=== PATIENT | female | born 1945 | race Caucasian/White ===

== ENCOUNTER 2018-04-13 04:52 | Observation (INO) | payer MEDICARE ==
[2018-04-13] MEDS ORDERED: Pantoprazole IV* 40 MG IV ONE (05:10)
[2018-04-13] MEDS ORDERED: NS 0.9% 500 ML* 500 ML IV ONE (05:24)
[2018-04-13] MEDS ORDERED: Calcium CHLORIDE 10% SYRINGE* 0.34 GM in D5W 100 ML BAG* 100 ML IV ONE (05:24)
[2018-04-13] MEDS ORDERED: Calcium CHLORIDE 10% SYRINGE* 1 GM/10 ML ONE (05:25)
[2018-04-13] MEDS ORDERED: Glucagon* 1 MG VIAL IV ONE (05:36)
[2018-04-13] MEDS ORDERED: Calcium CHLORIDE 10% SYRINGE* 1 GM/10 ML IV ONE ×2 (05:39→06:31)
[2018-04-13] MEDS ORDERED: Dextrose 50% Syringe 50 ML* 25 GM/50 ML SYRINGE IV PUSH ONE (05:41)
[2018-04-13] MEDS ORDERED: Insulin REGULAR(*) 1 UNITS UNIT IV PUSH ONE (05:42)
[2018-04-13 05:43] LABS: ABS Basophils 0.1 10^3/ul (0-0.2); ABS Eosinophils 0.5 10^3/ul (0-0.6); ABS Lymphocytes 2.8 10^3/ul (1.0-4.8); ABS Monocytes 0.6 10^3/ul (0-0.8); ABS Neutrophils 4.4 10^3/ul (1.5-7.7); ABS Nucleated RBC 0 10^3/ul; Eosinophil % 5.3 % (0-6); Hematocrit 38 % (35-47); Hemoglobin 12.6 g/dl (12.0-16.0); Lymphocyte % 33.7 % (25-47); Mean Corpuscular HGB Conc 34 g/dl (31-36); Mean Corpuscular Hemoglobin 28 pg (27-31); Mean Corpuscular Volume 83 fL (80-97); Nucleated Red Blood Cells % 0; Platelet Count 250 10^3/ul (150-450); Red Blood Count 4.56 10^6/ul (4.00-5.40); Red Cell Distribution Width 16 % (10.5-15); White Blood Count 8.4 10^3/ul (3.5-10.8)
[2018-04-13 05:53] LABS: INR 1.08 (0.77-1.02)
[2018-04-13] MEDS ORDERED: Ondansetron INJ* 2 MG/ML VIAL ONE (05:53)
[2018-04-13] MEDS ORDERED: Ondansetron INJ* 2 MG/ML VIAL IV ONE (05:57)
[2018-04-13 06:06] LABS: EGFR Non-African American 63.5 (>60)
--- NOTE | 2018-04-13 06:49 | ED ---
Wallace Joel Tariq, scribed for Valerie Carbajal MD on 04/13/18 at 0524 . HPI Chest Pain - HPI Summary HPI Summary: A 72 y/o female [place] presents to ED c/o chest pressure. According to the patient , she woke up from her sleep with chest pressure around 0300. She felt her heart beating very fast/pounding. The pressure is diffuse across her chest. Currently, the pressure is not as bad, but still present. Additional symptoms include SOB, frequent belching and cold sweat, however denies any chest pain. She initially thought it was heart burn or an anxiety so she took a Xanax tab. The patient noted that her current symptoms are similar to her symptoms that were exhibited for her ND, however she feels she cannot tell the different between her acid reflux. EMS gave patient four aspirin and a blood thinner in the morning. PMHx of ND. No recent stress test. Last test was one year ago which revealed no change from year before. According to EMS, patients heart rate was 120-130. Some of her current medications include Xarelto, Ramipril. Metformin, and Doletilide (see chart for exhaustive list). - History of Current Complaint Chief Complaint: EDDysrhythmPalp Time Seen by Provider: 04/13/18 04:55 Hx Obtained From: Patient Onset/Duration: Started Hours Ago - 0300, Still Present - Not as much. Timing: Constant Current Severity: None Pain Intensity: 0 Pain Scale Used: 0-10 Numeric Chest Pain Location: Diffuse - Across chest Chest Pain Radiates: No Character: Pressure/Squeezing Aggravating Factor(s): Nothing Alleviating Factor(s): Nothing Associated Signs and Symptoms: Positive: Shortness of Breath, Diaphoresis - Cold , Other: - Belching. Negative: Chest Pain - Additional Pertinent History Primary Care Physician: [id number] - Allergy/Home Medications Allergies/Adverse Reactions: Allergies Allergy/AdvReac Type Severity Reaction Status Date / Time No Known Allergies Allergy Verified 04/13/18 04:57 Home Medications: Home Medications Cholecalciferol TAB* [Vitamin D TAB*] 1,000 unit PO DAILY 04/13/18 [History Confirmed 04/13/18] Cyanocobalamin (Vitamin B-12) [Vitamin B-12] 1,000 mcg PO DAILY 04/13/18 [ History Confirmed 04/13/18] Iron 65 mg PO DAILY 04/13/18 [History Confirmed 04/13/18] Magnesium Carbonate/Asafetida [Dewees Carminative Withou] 1 liq PO DAILY [History Confirmed 04/13/18] metFORMIN* [Glucophage 1000 MG TAB *] 1,000 mg PO 0800,1700 04/13/18 [History Confirmed 04/13/18] PMH/Surg Hx/FS Hx/Imm Hx Endocrine/Hematology History: Reports: Hx Diabetes, Hx Anemia Denies: Hx Unexplained Bleeding Cardiovascular History: Reports: Hx Angina, Hx Angioplasty, Hx Cardiomegaly, Hx Congestive Heart Failure, Hx Coronary Artery Disease, Hx Hypercholesterolemia, Hx Hypertension, Hx Myocardial Infarction - multiple stents, Other Cardiovascular Problems/Disorders - LBBB Denies: Hx Auto Implanted Cardiovert Defib, Hx Cardiac Arrest, Hx Congenital Heart Disease, Hx Deep Vein Thrombosis, Hx Embolism, Hx Hypotension, Hx Pacemaker/ICD, Hx Peripheral Vascular Disease, Hx Rheumatic Fever, Hx Syncope, Hx Valvular Heart Disease Respiratory History: Reports: Hx Asthma GI History: Reports: Hx Gastroesophageal Reflux Disease, Hx Hiatal Hernia, Other GI Disorders - hemorrhoids History: Reports: Other Problems/Disorders - UTI Musculoskeletal History: Reports: Hx Arthritis - knees Sensory History: Reports: Hx Contacts or Glasses Opthamlomology History: Reports: Hx Contacts or Glasses Psychiatric History: Reports: Hx Anxiety - one anxiety attack 2004 - Surgical History Surgery Procedure, Year, and Place: 4 heart surgeries, hysterectomy, cholecysytecomty, tumor removed from between toes. Hx Anesthesia Reactions: No Infectious Disease History: No Infectious Disease History: Denies: Traveled Outside the [place] in Last 30 Days - Family History Known Family History: Positive: Diabetes - GRANDMOTHER, Other - Bypass, AAA, ND , Dementia, CAD - Social History Alcohol Use: None Hx Substance Use: No Substance Use Type: Reports: None Hx Tobacco Use: No Smoking Status (MU): Never Smoked Tobacco Review of Systems Positive: Skin Diaphoresis - Cold, Other - POSITIVE: Belching. Negative: Fever Positive: Other - POSITIVE: Chest pressure. Negative: Chest Pain Positive: Shortness Of Breath All Other Systems Reviewed And Are Negative: Yes Physical Exam - Summary Physical Exam Summary: VITAL SIGNS: Reviewed. GENERAL: Patient is a well-developed and nourished FEMALE who is lying comfortable in the stretcher. Patient is not in any acute respiratory distress. Patient is almost pain free at this time, 0510. HEAD AND FACE: No signs of trauma. No ecchymosis, hematomas or skull depressions. No sinus tenderness. EYES: PERRLA, EOMI x 2, No injected conjunctiva, no nystagmus. EARS: Hearing grossly intact. Ear canals and tympanic membranes are within normal limits. MOUTH: Oropharynx within normal limits. NECK: Supple, trachea is midline, no adenopathy, no JVD, no carotid bruit, no c- spine tenderness, neck with full ROM. CHEST: Symmetric, no tenderness at palpation LUNGS: Clear to auscultation bilaterally. No wheezing or crackles. CVS: Bradycardia ,Irregular heart rate, S1 and S2 present, no murmurs or gallops appreciated. ABDOMEN: Soft, non-tender. No signs of distention. No rebound no guarding, and no masses palpated. Bowel sounds are normal. EXTREMITIES: FROM in all major joints, no edema, no cyanosis or clubbing. NEURO: Alert and oriented x 3. No acute neurological deficits. Speech is normal and follows commands. SKIN: Somewhat diaphoretic. Triage Information Reviewed: Yes Vital Signs On Initial Exam: Initial Vitals Temp Pulse Resp BP Pulse Ox 96.4 F 62 14 99/54 94 04/13/18 04:54 04/13/18 04:54 04/13/18 04:54 04/13/18 04:54 04/13/18 04:54 Vital Signs Reviewed: Yes Diagnostics - Vital Signs Vital Signs Temp Pulse Resp BP Pulse Ox 04/13/18 05:00 43 21 93 04/13/18 04:59 43 14 114/56 94 04/13/18 04:57 46 17 94 04/13/18 04:54 96.4 F 62 14 99/54 94 - Laboratory Lab Results: Lab Results 04/13/18 04/13/18 04/13/18 Range/Units 05:32 05:32 05:32 WBC 8.4 (3.5-10.8) 10^3/ul RBC 4.56 (4.00-5.40) 10^6/ul Hgb 12.6 (12.0-16.0) g/dl Hct 38 (35-47) % MCV 83 (80-97) fL MCH 28 (27-31) pg MCHC 34 (31-36) g/dl RDW 16 H (10.5-15) % Plt Count 250 (150-450) 10^3/ul MPV 11.0 H (7.4-10.4) um3 Neut % (Auto) 52.6 (38-83) % Lymph % (Auto) 33.7 (25-47) % Wetzel % (Auto) 7.7 H (0-7) % Eos % (Auto) 5.3 (0-6) % Baso % (Auto) 0.7 (0-2) % Absolute Neuts (auto) 4.4 (1.5-7.7) 10^3/ul Absolute Lymphs (auto) 2.8 (1.0-4.8) 10^3/ul Absolute Monos (auto) 0.6 (0-0.8) 10^3/ul Absolute Eos (auto) 0.5 (0-0.6) 10^3/ul Absolute Basos (auto) 0.1 (0-0.2) 10^3/ul Absolute Nucleated RBC 0 10^3/ul Nucleated RBC % 0 INR (Anticoag Therapy) 1.08 H (0.77-1.02) APTT 44.0 H (26.0-36.3) seconds Sodium 138 (135-145) mmol/L Potassium 4.0 (3.5-5.0) mmol/L Chloride 108 (101-111) mmol/L Carbon Dioxide 21 L (22-32) mmol/L Anion Gap 9 (2-11) mmol/L BUN 18 (6-24) mg/dL Creatinine 0.88 (0.51-0.95) mg/dL Est GFR ( Amer) 76.9 (>60) Est GFR (Non-Af Amer) 63.5 (>60) BUN/Creatinine Ratio 20.5 H (8-20) Glucose 242 H (70-100) mg/dL Lactic Acid (0.5-2.0) mmol/L Calcium 9.3 (8.6-10.3) mg/dL Magnesium 1.8 L (1.9-2.7) mg/dL Total Bilirubin 0.30 (0.2-1.0) mg/dL AST 27 (13-39) U/L ALT 21 (7-52) U/L Alkaline Phosphatase 66 (34-104) U/L Troponin I 0.03 (<0.04) ng/mL B-Natriuretic Peptide ( - 100) pg/mL Total Protein 7.4 (6.4-8.9) g/dL Albumin 4.2 (3.2-5.2) g/dL Globulin 3.2 (2-4) g/dL Albumin/Globulin Ratio 1.3 (1-3) TSH 4.23 (0.34-5.60) mcIU/mL Thyroxine (T4) 8.08 (6.09-12.23) mcg/mL 04/13/18 04/13/18 Range/Units 05:32 05:32 WBC (3.5-10.8) 10^3/ul RBC (4.00-5.40) 10^6/ul Hgb (12.0-16.0) g/dl Hct (35-47) % MCV (80-97) fL MCH (27-31) pg MCHC (31-36) g/dl RDW (10.5-15) % Plt Count (150-450) 10^3/ul MPV (7.4-10.4) um3 Neut % (Auto) (38-83) % Lymph % (Auto) (25-47) % Wetzel % (Auto) (0-7) % Eos % (Auto) (0-6) % Baso % (Auto) (0-2) % Absolute Neuts (auto) (1.5-7.7) 10^3/ul Absolute Lymphs (auto) (1.0-4.8) 10^3/ul Absolute Monos (auto) (0-0.8) 10^3/ul Absolute Eos (auto) (0-0.6) 10^3/ul Absolute Basos (auto) (0-0.2) 10^3/ul Absolute Nucleated RBC 10^3/ul Nucleated RBC % INR (Anticoag Therapy) (0.77-1.02) APTT (26.0-36.3) seconds Sodium (135-145) mmol/L Potassium (3.5-5.0) mmol/L Chloride (101-111) mmol/L Carbon Dioxide (22-32) mmol/L Anion Gap (2-11) mmol/L BUN (6-24) mg/dL Creatinine (0.51-0.95) mg/dL Est GFR ( Amer) (>60) Est GFR (Non-Af Amer) (>60) BUN/Creatinine Ratio (8-20) Glucose (70-100) mg/dL Lactic Acid 2.2 H* (0.5-2.0) mmol/L Calcium (8.6-10.3) mg/dL Magnesium (1.9-2.7) mg/dL Total Bilirubin (0.2-1.0) mg/dL AST (13-39) U/L ALT (7-52) U/L Alkaline Phosphatase (34-104) U/L Troponin I (<0.04) ng/mL B-Natriuretic Peptide 358 H ( - 100) pg/mL Total Protein (6.4-8.9) g/dL Albumin (3.2-5.2) g/dL Globulin (2-4) g/dL Albumin/Globulin Ratio (1-3) TSH (0.34-5.60) mcIU/mL Thyroxine (T4) (6.09-12.23) mcg/mL Result Diagrams: 04/13/18 05:32 07 05:32 Lab Statement: Any lab studies that have been ordered have been reviewed, and results considered in the medical decision making process. - Radiology CXR Radiology Interpretation Completed By: ED Physician - BILATERAL VENOUS CONGESTION. PENDING OFFICIAL REPORT. - EKG 0457 Cardiac Rate: Bradycardia - 48 BPM EKG Rhythm: Atrial Fibrillation - ATRIAL FIBRILLATION AND LEFT BUNDLE BRANCH BLOCK. Re-Evaluation - Re-Evaluation First Eval Re-Evaluation Time: 06:28 Comment: DISCUSSED RESULTS AND PLAN WITH PATIENT. Chest Pain Course/Dx - Course Course Of Treatment: Patient was given Cardizem, 90 mg IV, by EMS over 45 minutes. Patient was brachycardic and hypotensive upon arrival to ED. Patient was treated for calcium brandon overdose with IV calcium, glucagon, IV insulin and IV dextrose. Patient is doing better with a heart rate of 55-65, blood pressure is stable. Discussed patient care with Dr. Thakkar and he accepts patient for admission to ICU. Patient will be admitted with a diagnosis of calcium channel brandon overdose, paroxysmal atrial fibrillation and chest pain. Pt is agreeable with this plan. - Diagnoses Provider Diagnoses: Calcium channel brandon overdose, Paroxysmal atrial fibrillation, Chest pain - Provider Notifications Discussed Care Of Patient With: Raf Thakkar Time Discussed With Above Provider: 06:24 Instructed by Provider To: Other - Accepts patient for admission. - Critical Care Time Critical Care Time: 30-74 min - 40 minutes Discharge - Sign-Out/Discharge Documenting (check all that apply): Discharge/Admit/Transfer - ADMIT - Discharge Plan Condition: Stable Disposition: ADMITTED TO [facility] Referrals: Peggy Hurst [Primary Care Provider] - - Billing Disposition and Condition Condition: STABLE Disposition: Admitted to [facility] The documentation as recorded by the Wallace thompson Tariq accurately reflects the service I personally performed and the decisions made by , Valerie Carbajal MD.
--- NOTE | 2018-04-13 07:59 | RAD ---
INDICATION: Rapid heart rate COMPARISON: Most recent comparison chest x-rays dated March 29, 2016 TECHNIQUE: Single AP portable view of the chest was obtained. FINDINGS: Image quality is compromised due to the relative inferiority of a portable chest x-ray. The heart and mediastinum exhibit normal size and contour. There is coarse calcification overlying the arch of the aorta. There are patchy densities overlying the bilateral lungs. The pulmonary vasculature appears mildly engorged. There is bibasilar costophrenic angle blunting consistent with small pleural effusions. Visualized bones are normal for the patient's age. IMPRESSION: Chest x-ray findings are most consistent with mild cardiogenic pulmonary edema with small pleural effusions.
--- NOTE | 2018-04-13 09:00 | CONSULT ---
Consult Consult: CC: Chest pain and palpitations HPI: 72F with htn, hld, dm, cad s/p pci, afib, CHF, h/o LBBB presents with chest pain and palpitations. She woke up from sleep at about 3am with her symptoms. She had some associated shortness of breath. She called EMS and was found to be in afib with RVR. The patient was given cardizem iv push. When EMS was starting a cardizem drip it was inadvertently run wide open. It was estimated that the patient may have received upwards of 90mg. Upon a arrival to the ER the patient was found to be bradycardic. She required several doses of IV calcium. Last dose at approximately 7am. Currently the patient remains in afib with a ventricular rate of approximately 90. She no longer feels chest pain but occasionally feels palpitations. She denies any recent illness. She reports compliance with her home medications. ROS - 10 systems reviewed with the patient and are negative except where stated in the HPI. PMHx - htn, hld, dm, cad s/p pci, afib, chf, h/o LBBB PSHx - cholecystectomy, appendecomty, tumor removal from between her toes All - nkda SocHx - denies d/a/t FamHx - DM, cardiac disease PE Vital Signs - 12 hr Temp Pulse Resp BP Pulse Ox 04/13/18 07:58 88 18 151/92 98 04/13/18 07:28 74 18 150/76 98 04/13/18 07:12 68 16 164/81 97 04/13/18 07:00 80 93 04/13/18 06:28 59 16 134/68 93 04/13/18 06:00 62 15 91 04/13/18 05:58 59 17 161/78 92 04/13/18 05:54 61 19 168/91 90 04/13/18 05:53 58 21 171/82 90 04/13/18 05:31 47 21 108/46 92 04/13/18 05:29 47 22 104/56 92 04/13/18 05:24 46 15 118/39 92 04/13/18 05:16 41 20 91/51 95 04/13/18 05:00 43 21 93 04/13/18 04:59 43 14 114/56 94 04/13/18 04:57 46 17 94 04/13/18 04:54 96.4 F 62 14 99/54 94 Gen - NAD HEENT - NCAT, eomi, poor dentition Neck - no jvd, no thyromegaly CV - s1/s2. irregular Pulm - cta, no wrr abd - soft, nt ext - no cce neuro - non-focal Labs Laboratory Results - last 24 hr 04/13/18 04/13/18 04/13/18 05:32 05:32 05:32 WBC 8.4 RBC 4.56 Hgb 12.6 Hct 38 MCV 83 MCH 28 MCHC 34 RDW 16 H Plt Count 250 MPV 11.0 H Neut % (Auto) 52.6 Lymph % (Auto) 33.7 Blanco % (Auto) 7.7 H Eos % (Auto) 5.3 Baso % (Auto) 0.7 Absolute Neuts (auto) 4.4 Absolute Lymphs (auto) 2.8 Absolute Monos (auto) 0.6 Absolute Eos (auto) 0.5 Absolute Basos (auto) 0.1 Absolute Nucleated RBC 0 Nucleated RBC % 0 INR (Anticoag Therapy) 1.08 H APTT 44.0 H Sodium 138 Potassium 4.0 Chloride 108 Carbon Dioxide 21 L Anion Gap 9 BUN 18 Creatinine 0.88 Est GFR ( Amer) 76.9 Est GFR (Non-Af Amer) 63.5 BUN/Creatinine Ratio 20.5 H Glucose 242 H Lactic Acid Calcium 9.3 Magnesium 1.8 L Total Bilirubin 0.30 AST 27 ALT 21 Alkaline Phosphatase 66 Troponin I 0.03 B-Natriuretic Peptide Total Protein 7.4 Albumin 4.2 Globulin 3.2 Albumin/Globulin Ratio 1.3 TSH 4.23 Thyroxine (T4) 8.08 04/13/18 04/13/18 05:32 05:32 WBC RBC Hgb Hct MCV MCH MCHC RDW Plt Count MPV Neut % (Auto) Lymph % (Auto) Blanco % (Auto) Eos % (Auto) Baso % (Auto) Absolute Neuts (auto) Absolute Lymphs (auto) Absolute Monos (auto) Absolute Eos (auto) Absolute Basos (auto) Absolute Nucleated RBC Nucleated RBC % INR (Anticoag Therapy) APTT Sodium Potassium Chloride Carbon Dioxide Anion Gap BUN Creatinine Est GFR ( Amer) Est GFR (Non-Af Amer) BUN/Creatinine Ratio Glucose Lactic Acid 2.2 H* Calcium Magnesium Total Bilirubin AST ALT Alkaline Phosphatase Troponin I B-Natriuretic Peptide 358 H Total Protein Albumin Globulin Albumin/Globulin Ratio TSH Thyroxine (T4) EKG - afib, lbbb, theo CXR - IMPRESSION: Chest x-ray findings are most consistent with mild cardiogenic pulmonary edema with small pleural effusions. Impression - 72F with htn, hld, dm, cad, chf, afib, lbbb presents with afib with rvr and subsequent calcium channel overdose Neuro - non focal exam CV - htn, hld, cad, chf, afib, ccb overdose 1.) CCB overdose / afib - hemodynamically stable - last dose of calcium approx 2 hours ago - HR has remained stable in 90s - bp 150 systolic - c/w xarelto for ac - keep k > 4, mg > 2 - recommend cardiology eval for rate control optimization - telemetry monitoring 2.) chf - cxr with some pulm edema - may be related to rapid afib - consider gentle diuresis - repeat tte last done 2015 3.) htn/hld/cad - c/w asa/statin - resume home anti-hypertensives slowly Pulm - oxygenating well GI - diet as tolerated Renal - monitor lytes Endo - dm - check fs, niss, metformin Heme - monitor cbc - on xarelto Lines - piv PPx - gi/dvt Full Code Does not require ICU level of care at this time Critical Care time: 60 mins
[2018-04-13] MEDS ORDERED: Al Hydrox/Mg Hydrox/Simet LIQ* 30 ML UDC PO PRN (09:38)
[2018-04-13] MEDS ORDERED: Ondansetron INJ* 2 MG/ML VIAL IV PRN (09:38)
[2018-04-13] MEDS ORDERED: Acetaminophen TAB* 325 MG PO PRN (09:38)
[2018-04-13] MEDS ORDERED: Magnesium Hydroxide LIQ* 30 ML UDC PO PRN (09:38)
[2018-04-13] MEDS ORDERED: Morphine VIAL* 4 MG/ML VIAL (1 ml vial) IV PRN (09:38)
[2018-04-13] MEDS ORDERED: Albuterol 2.5 MG/3 ML NEB.SOL* (0.083%) INH PRN (09:38)
[2018-04-13] MEDS ORDERED: Dextrose 50% Syringe 50 ML* 25 GM/50 ML SYRINGE IV PUSH PRN (09:46)
[2018-04-13] MEDS ORDERED: Magnesium Sulfate 1 GM IV* 1 GM/100 ML BAG IV ONE ×2 (09:48→14:30)
[2018-04-13] MEDS ORDERED: Metoprolol Tartrate IV* 1 MG/ML 5 ML VIAL IV ONE (10:20)
[2018-04-13] MEDS: Dofetilide CAP* 500 MCG PO SCH ×2 (10:53→20:39)
--- NOTE | 2018-04-13 11:26 | HP ---
AMENDED REPORT NOW INCLUDES COSIGNER DESIGNATION - ESIGNED BEFORE ADJUSTMENTS CC: Dr. Yogi Diamond; Dr. Ender Daniel * ADMISSION HISTORY AND PHYSICAL: DATE OF ADMISSION: 04/13/18 PRIMARY CARE PHYSICIAN: Yogi Diamond MD. PRIMARY DOWEL POINTER: Ender Daniel MD ATTENDING HOSPITALIST WHILE IN HOSPITAL: Chuy Montgomery MD * (DICTATED BY DOMENICO FIELDS) CHIEF COMPLAINT: Chest pain and palpitation. HISTORY OF PRESENT ILLNESS: Mrs. Brown is a 72-year-old female who carries past medical history significant for hypertension, hyperlipidemia, diabetes mellitus, coronary artery disease, status post PCI as well as atrial fibrillation for which she has been on Xarelto for a period of time who presented to the emergency room at early hours of this morning with complaints of chest pain and palpitations. The patient apparently woke up this morning from her sleep approximately at 3 o'clock with her symptoms. She thought she might have an anxiety attack and she took a dose of her Xanax that did not seem to help. She described it as fast heartbeat as well as chest tightness with associated shortness of breath. However, she denied any dizziness, headache, or syncope. She has been on Xarelto for over two years now due to chronic atrial fibrillation for which she described being asymptomatic until this morning. The patient called EMS and was found to be in atrial fibrillation and was given Cardizem IV push initially. En route to the emergency room, the patient was started on a Cardizem drip that was inadvertently ran wide open. Per EMS staff, it was estimated that the patient may have received up to 90 mg total dose of Cardizem. Upon arrival to the emergency room, she was found to be in bradycardia requiring several doses of IV calcium given to return her rate to normal range. During her ED visit, she remains to be in atrial fibrillation with better controlled ventricular rate of 90s at the time of admission. She denied any further complaints of palpitation or chest pain. However, she occasionally feels some irregular heartbeat, but not as bad as it was this morning. Given her ongoing symptoms and her known history of atrial fibrillation, we were asked to see the patient for further evaluation of her atrial fibrillation and to consider admission to telemetry for close observation and cardiology consultation for possible cardioversion if indicated. PAST MEDICAL HISTORY: As mentioned above significant for: 1. Chronic atrial fibrillation, for which she has been on Xarelto. 2. Coronary artery disease with PCI and stent placement. 3. History of diastolic congestive heart failure. 4. Hypertension. 5. Type diabetes mellitus, insulin dependent. 6. GERD. 7. Hyperlipidemia. PAST SURGICAL HISTORY: Significant for: 1. Cholecystectomy. 2. Appendectomy. 3. Hysterectomy. CURRENT MEDICATIONS: Her medications at home include: 1. Xanax 0.5 mg p.o. q.h.s. as needed for anxiety. 2. Norvasc 5 mg p.o. daily. 3. Aspirin 81 mg p.o. daily. 4. Vitamin D tablets 1000 units p.o. daily. 5. Vitamin B12 of 1000 mcg p.o. daily. 6. Tikosyn 500 mcg p.o. b.i.d. 7. Levemir insulin 28 to 32 units subcu q.p.m. 8. Iron 65 mg p.o. daily. 9. Isosorbide 20 mg p.o. b.i.d. 10. Magnesium liquid 250 mg per teaspoon one teaspoon p.o. daily. 11. Metformin 1000 mg p.o. daily. 12. Metoprolol 75 mg p.o. b.i.d. 13. Altace 10 mg p.o. daily. 14. Crestor 20 mg p.o. q.h.s. 15. Lopid 600 mg p.o. b.i.d. 16. Magnesium oxide 400 mg p.o. b.i.d. 17. Xarelto 20 mg p.o. daily. ALLERGIES: She has no known drug allergies. FAMILY HISTORY: She denies any family history of heart disease or malignancies. SOCIAL HISTORY: She denies smoking or alcohol intake. She lives with her , Micheal, who is her healthcare proxy carrier and she wishes to be a full code. REVIEW OF SYSTEMS: See HPI, otherwise 14-point review of systems were evaluated and they were otherwise negative. PHYSICAL EXAMINATION GENERAL: She is a pleasant, obese, older female appears comfortable and in no acute distress or discomfort at the time of admission. VITAL SIGNS: Reveal temperature of 96.4, blood pressure 148/87, heart rate of 90, respirations of 20, with O2 sat of 99% on room air. HEENT: Head is normocephalic, atraumatic. Sclerae anicteric. PERRLA. EOMs intact. Oropharynx is pink and moist. Dentition poor and with absent incisors. NECK: Supple. Trachea midline. No cervical adenopathy or thyromegaly. LUNGS: Clear to auscultation bilaterally. HEART: Irregular rate and rhythm. Normal S1 and S2. There are no murmurs noted. BACK: Normal curvature. No CVA tenderness. ABDOMEN: Round and obese. Nontender and nondistended. There are no hernias, masses, or hepatosplenomegaly. EXTREMITIES: Without cyanosis, clubbing, or edema. RECTAL: Deferred at this time. NEUROLOGIC: She is awake, alert, oriented x4. Equal hand wrapper hand bilaterally. Tongue is midline and sensation is intact throughout. LABORATORY DATA: CBC with white count of 8000, hemoglobin of 12.6, hematocrit of 38, and platelets of 250. Chemistry panel with sodium of 138, potassium 4.0 , chloride 108, BUN of 18, CO2 of 21, creatinine of 0.88. Her glucose is 242, lactic acid 2.2, calcium 9.3, magnesium 1.8. BNP 358. Her TSH, thyroid panel, LFTs were essentially within normal limits. ACCESSORY DIAGNOSTIC DATA: EKG done earlier today revealed sinus bradycardia and repeated EKG was ordered and results pending at this time. Chest x-ray revealed mild cardiogenic pulmonary edema with small pleural effusion consistent with possible mild CHF. ASSESSMENT: A 72-year-old female with past medical history significant for hypertension, hyperlipidemia, coronary artery disease, and chronic atrial fibrillation who present to the emergency room with sinus bradycardia due to excessive dose of diltiazem that was reversed with multiple calcium channel supplements and will be admitted for observation in telemetry for the following. ASSESSMENT AND PLAN: 1. Atrial fibrillation with rapid ventricular rate. The patient appears to be stable at this time. She is still in atrial fibrillation; however, her ventricular rate had improved to 90s at the time of admission. We have spoken to Dr. Freire who agreed to see the patient and will continue her Xarelto as well as replace her magnesium as well as keep her potassium above for rate control. She will be admitted for observation and await cardiology evaluation for rate control optimization. She appears to be hemodynamically stable at this time. 2. Congestive heart failure. As mentioned above, chest x-ray with some pulmonary edema could be related to rapid atrial fibrillation. Her last transthoracic echocardiogram was done in 2016 and I will repeat it for further evaluation. Her lung exam appears normal and she does not have any extremity edema or other signs or symptoms suggesting fluid overload at this time. 3. Hypertension. We will continue her medication and resume it slowly to maintain her blood pressure optimized. 4. Coronary artery disease. We will maintain her on aspirin and statin. 5. Hyperlipidemia. We will continue her statin and repeat lipid panel for tomorrow. 6. Type 2 diabetes mellitus. I will hold her metformin and we will continue her Lantus insulin as substitute for detemir as well as lispro sliding scale. 7. DVT prophylaxis. We will continue her on Xarelto. 8. Code status. She is a full code. TIME SPENT: Approximately 60 minutes were spent admitting this patient with more than 50% of this time spent taking history and performing physical exam. I have reviewed plan of care with my attending, Dr. Montgomery who agreed and will follow her up accordingly. DOMENICO FIELDS [id number]/CPS #: [id number] YOLANDA
[2018-04-13] MEDS: Insulin LISPRO* 1 UNITS UNIT SUBCUT SCH ×3 (12:51→20:37)
[2018-04-13] MEDS: Rivaroxaban TAB(*) 20 MG TAB PO SCH (13:05)
[2018-04-13] MEDS ORDERED: fentaNYL* 50 MCG/ML 2 ML VIAL (100 MCG VIAL) ONE (13:33)
[2018-04-13] MEDS ORDERED: Midazolam* 1 MG/ML 10 ML VIAL (10 MG) ONE (13:33)
[2018-04-13] MEDS ORDERED: Flumazenil* 0.1 MG/ML 5 ML MDV ONE (13:33)
[2018-04-13] MEDS ORDERED: Naloxone* 0.4 MG/ML 1 ML VIAL ONE (13:33)
--- NOTE | 2018-04-13 15:34 | CONS ---
CC: Peggy Hurst NP; Dr. Daniel. * CARDIOLOGY CONSULTATION: DATE OF CONSULT: 04/13/18. CONSULTING PHYSICIAN: Julissa Bone MD. REASON FOR EVALUATION: AFib. HISTORY OF PRESENT ILLNESS: This is a very pleasant 72-year-old woman who has a longstanding history of paroxysmal atrial fibrillation and coronary artery disease, hypertension and diabetes. Her had her last episode about two years ago and she was transferred to Dr. Gann for possible AFib ablation. At that time, she underwent therapy with Tikosyn and has done well until this admission. She states she woke at 3 a.m. with chest pressure, shortness of breath, and sweatiness and felt her heart going fast. She thought perhaps it was indigestion, but usually she does not have the fast heart rate. Symptoms did not improve with Tums. After her persistent symptoms for several minutes, she decided to call the ambulance and came to the ER, was found to be in atrial fibrillation with a rapid ventricular response. She was given IV diltiazem with slowing of her heart rate into the 40s. She states as soon as she got treatment she felt like her chest pain, shortness of breath, and palpitations resolved. She has been feeling fine and currently is in AFib in the low 100s. She denies any chest pain or shortness of breath currently. She denies any constitutional symptoms of fevers, chills, sweat, diarrhea, nausea or vomiting. She denies any noncompliance with her medications. She denies alcohol use and she has one cup of decaffeinated coffee that she has had nothing to eat since before midnight last night. She is not taking her morning medicines as of my exam. She took Xanax at the time of her chest pain, which did not help with her chest pain. PAST MEDICAL HISTORY: Includes coronary artery disease with an old KS in 2002, left bundle branch block. She has had multiple coronary interventions and reports she has six stents. Her most recent cath was in November, and at that time she underwent treatment of an 80% to 90% lesion at the origin of the OM1 as it exited the stented segment of the circumflex. Stented area was well preserved with only 20% to 25% in-stent restenosis immediately past the OM. The proximal circ had a 30% lesion. The culprit vessel was entered and treated with a 2.5 mm stent. This stent was at the origin of the OM as it met the circumflex and they were dilated together with a kissing balloon. The OM branch was not jailed. 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 Gann at [facility], asthma, exercise-induced osteoarthritis. She uses two pillows at night for comfort. PAST SURGICAL HISTORY: Includes, cholecystectomy, hysterectomy, multiple PCIs of the coronary arteries. She also has an incidental appendectomy at the time of her cholecystectomy. ALLERGIES: She denies any allergies. SOCIAL HISTORY: She is for 54 years, has 3 daughters. 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 FAMILY HISTORY: She has 3 sisters, one sister of alcoholism and cirrhosis of liver. She has 2 brothers with coronary disease. REVIEW OF SYSTEMS: Review of systems x10 was negative except as above. MEDICATIONS: As an outpatient, include: 1. Aspirin. 2. Metformin 1000 mg b.i.d. 3. Magnesium carbonate 1 a day. 4. Iron 65 mg a day. 5. Vitamin B12. 6. Cholecalciferol 1000 units a day. 7. Ramipril 10 mg a day. 8. Isosorbide 20 mg b.i.d. 9. Insulin 28 to 32 units subcu q.p.m. 10. Metoprolol tartrate 75 mg b.i.d. 11. Magnesium oxide 400 mg b.i.d. 12. Gemfibrozil 600 mg b.i.d. 13. . 14. Tikosyn 500 mg b.i.d. 15. Rosuvastatin 20 mg at bedtime. 16. Alprazolam 5 mg daily. As an inpatient she is being continued on the same medicines except the Crestor was changed to atorvastatin 40 mg. PHYSICAL EXAM: She is a well-developed, obese female in no apparent distress. Heart rate was 100 to 110 and irregular, blood pressure 150/77, O2 sat 99% on room air, atraumatic, normocephalic. Extraocular muscles intact. Sclerae anicteric. No significant JVD. Carotids are 2+ without bruits. No cervical adenopathy or thyromegaly. Cardiac Exam: S1, S2 with 2/6 systolic ejection murmur at the base and 2/6 holosystolic murmur at the apex. Chest was clear. No CVAT. Abdomen is obese. Exam is somewhat limited. No hepatosplenomegaly. Femoral pulses are intact without bruits. Positive bowel sounds. No masses. Distal pulses intact, 2+, no edema. Motor strength 5/5 bilaterally. Deep tendon reflex is 2/4. Alert and oriented x3. Her nuclear stress test from December, revealed fixed perfusion defect in the left lateral wall to the left ventricle, mild hypokinesis of the left lateral wall. EF of 57% after stress. LABORATORY DATA/DIAGNOSTIC STUDIES: Echocardiogram from July 2013 revealed a mildly depressed LV function with EF of 45% to 50%, mild concentric LVH, grade 2 diastolic dysfunction, basal inferolateral akinesis, mild to moderate MR. Mild pulmonary hypertension similar to December,. Her labs include, normal CBC. Sodium 138, potassium of 4, bicarb low at 21, BUN 18, creatinine 0.88, BUN- creatinine ratio 20.7, glucose elevated to 242. Lactic acid mildly elevated to 2.2, magnesium low at 1.8, BNP of 358, thyroid functions were okay. INR is 1.08, mildly elevated. EKG revealed AFib with a slow ventricular response in the 40s, left bundle branch block. Chest x-ray revealed mild cardiogenic pulmonary edema with small pleural effusions. IMPRESSION: My impression is Ms. Brown appears to have recurrent AFib after a two-year hiatus on Tikosyn. She also had chest pain with this and appears to have some mild volume overload. For the time being, I would recommend: I will continue anticoagulation as you are doing. We would replace her magnesium as you are doing. We will keep her n.p.o. for attempt at cardioversion. The risks and benefits were discussed with the patient. She understands and agrees to proceed. She will be given metoprolol 5 mg IV now to avoid beta-brandon withdrawal prior to the cardioversion. She is to take her Tikosyn this morning. We will restart her other medicines after the cardioversion. 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 She is to follow up with Dr. Daniel as outpatient after her cardioversion. We will continue to rule out for KS with serial troponins. She is to have an echo to reassess her LV function and valvular function. Certainly she is at risk for progression of coronary disease and may benefit from repeat evaluation at some point. [id number]/[facility] #: [id number] MTDD
--- NOTE | 2018-04-13 16:07 | ECHO ---
Patient: CATHRYN HUFF [facility] Rec#: [id number] : 1945 Date: 04/13/2018 Age: 72y Height: 163 cm / 64.2 in Weight: 92.5 kg / 203.9 lbs Sex: F BSA: 1.98 Room#: [facility] Admit Date#: 04/13/2018 Type: Inpatient Referring: Mendel Staton Reading: Agustin Freire MD Stretch Machine Operator: Shirin Rome RDCS CC: Peggy Hurst NP Transthoracic Echocardiogram Indication: Atrial Fibrillation with RVR, chest pain BP: 150/77 HR: 59 Rhythm: NSR with PVCs Findings History: CAD with [place], s/p PCI, HTN, HLD, DM, A-Fib, LBBB, CHF. Technical Comments: The study quality is fair. Completed at 1540. Left Ventricle: The left ventricular chamber size is normal. Mild concentric left ventricular hypertrophy is observed. There are multiple regional wall motion abnormalities. There is mildly decreased left ventricular systolic function. The estimated ejection fraction is 40-45%. There is a left ventricular septal wall motion abnormality observed, possibly due to the presence of a left bundle branch block. There is no consistent Doppler evidence of clinically significant diastolic dysfunction. The basal inferolateral, basal inferior, apical anterior, and apical lateral wall segments are hypokinetic (score 2). The mid inferolateral, mid inferior, and apical inferior wall segments are akinetic (score 3). Overall wallmotion score index is 1.63 Left Atrium: The left atrium is mildly dilated. Right Ventricle: Moderator Band present. The right ventricular cavity size is normal. The right ventricle wall thickness is mildly increased. The right ventricular global systolic function is low normal. Right Atrium: The right atrial cavity size is normal. Aortic Valve: The aortic valve is trileaflet. The aortic valve leaflets are mildly thickened. There is aortic annular calcification. There is a trace of aortic regurgitation. There is no evidence of aortic stenosis. Mitral Valve: There is mitral annular calcification. The mitral valve leaflets are mildly thickened. There is mild to moderate mitral regurgitation. There is no evidence of mitral stenosis. Tricuspid Valve: The tricuspid valve leaflets are normal. There is mild to moderate tricuspid regurgitation. The right ventricular systolic pressure is estimated at 49 mmHg. There is evidence of moderate pulmonary hypertension. There is no tricuspid stenosis. Pulmonic Valve: The pulmonic valve appears normal. There is mild pulmonic regurgitation. There is no pulmonic stenosis. Pericardium: There is no significant pericardial effusion. A pericardial fat pad is visualized. Aorta: There is borderline dilatation of the ascending aorta. There is no dilatation of the aortic arch. The aortic root is normal in size. Pulmonary Artery: The main pulmonary artery appears normal. Venous: The inferior vena cava appears normal in size. There is a greater than 50% respiratory change in the inferior vena cava dimension. Conclusions Mild concentric left ventricular hypertrophy is observed. There is mildly decreased left ventricular systolic function. There are multiple regional wall motion abnormalities. The estimated ejection fraction is 40-45%. There is a left ventricular septal wall motion abnormality observed, possibly due to the presence of a left bundle branch block. The left atrium is mildly dilated. The right ventricle wall thickness is mildly increased. The right ventricular global systolic function is mildly reduced. The aortic valve leaflets are mildly thickened. There is mild to moderate mitral regurgitation. There is mild to moderate tricuspid regurgitation. There is evidence of moderate pulmonary hypertension. There is mild pulmonic regurgitation. The right ventricular global systolic function is low normal. The right ventricle wall thickness is mildly increased. Similar to 12/2015 except for newly reported RVH and low normal RV function. Measurements Name Value Normal Range RVIDd (AP) 2D 2.76 cm (0.9 - 2.6) RVDdMajor (2D) 0.6 cm (2.2 - 4.4) RAd ISD 4CH 4.8 cm (3.4 - 4.9) RA (A4C)W 4.2 cm (2.9 - 4.6) IVSd (2D) 1.1 cm (0.6 - 1) LVPWd (2D) 1.1 cm (0.6 - 1) LVIDd (2D) 4.2 cm (3.6 - 5.4) LVIDs (2D) 3.3 cm - LV FS (2D) 21 % (25 - 45) Aortic Annulus 1.8 cm (1.4 - 2.6) Ao root diameter (2D) 3.2 cm (2.1 - 3.5) Ascending Ao 3.4 cm (2.1 - 3.4) Aortic arch 2.5 cm (1.8 - 3.4) LA dimension (AP) 2D 3.9 cm (2.3 - 3.8) LAd ISD 4CH 5.8 cm (2.9 - 5.3) LA ISD 4CH W 4.6 cm (2.5 - 4.5) Name Value Normal Range LA ESV BP (A/L) index 29.2 ml/m2 - Name Value Normal Range MV E-wave Vmax 1.2 m/sec - MV deceleration time 148 msec - MV A-wave Vmax 0.5 m/sec - MV E:A ratio 2.4 ratio - LV septal e' Vmax 0.06 m/sec - LV lateral e' Vmax 0.1 m/sec - LV E:e' septal ratio 20 ratio - LV E:e' lateral ratio 12 ratio - Name Value Normal Range AV Vmax 1.3 m/sec - AV VTI 25.7 cm - AV peak gradient 7 mmHg - AV mean gradient 3 mmHg - LVOT Vmax 0.8 m/sec - LVOT VTI 15.4 cm - LVOT peak gradient 2 mmHg - LVOT mean gradient 1 mmHg - JIN Vmax 0.5 m/sec - Name Value Normal Range MR Vmax 5.3 m/sec - MR VTI 201 cm - MR flow (PISA) 21.1 ml/sec - MR ERO 0.04 cm2 - MR PISA radius 0.3 cm - MR alias Vmax 37 cm/sec - Name Value Normal Range TR Vmax 3.4 m/sec - TR peak gradient 46 mmHg - RAP 3 mmHg - RVSP 49 mmHg - IVC diameter 1.8 cm - Name Value Normal Range PV Vmax 1.5 m/sec - PV peak gradient 9 mmHg - Wallmotion BAS Normal BA Normal BAL Normal JOSE G Hypokinetic BI Hypokinetic BIS Normal MAS Normal MA Normal MAL Normal MIL Akinetic [place] Akinetic MIS Normal Normal AA Hypokinetic AL Hypokinetic AI Akinetic APEX Normal
[2018-04-13] MEDS: Metoprolol Tartrate TAB* 25 MG PO SCH (20:36)
[2018-04-13] MEDS: Magnesium Oxide TAB* 400 MG PO SCH (20:37)
[2018-04-13] MEDS: ISOSORBIDE MONONITRATE 20 MG PO SCH (20:39)
[2018-04-13] MEDS: Gemfibrozil TAB* 600 MG PO SCH (20:39)
[2018-04-13] MEDS ORDERED: Atorvastatin* 40 MG TAB PO SCH (21:00)
[2018-04-13] MEDS ORDERED: Dofetilide CAP* 500 MCG PO SCH (21:00)
[2018-04-13] MEDS ORDERED: ALPRAZolam TAB* 0.5 MG PO SCH (21:00)
[2018-04-14 06:55] LABS: ABS Basophils 0.1 10^3/ul (0-0.2); ABS Eosinophils 0.3 10^3/ul (0-0.6); ABS Monocytes 0.6 10^3/ul (0-0.8); ABS Nucleated RBC 0 10^3/ul; Eosinophil % 5.1 % (0-6); Hematocrit 36 % (35-47); Lymphocyte % 33.4 % (25-47); Mean Corpuscular HGB Conc 34 g/dl (31-36); Mean Corpuscular Hemoglobin 28 pg (27-31); Mean Corpuscular Volume 82 fL (80-97); Mean Platelet Volume 10.5 um3 (7.4-10.4); Nucleated Red Blood Cells % 0.1; Platelet Count 190 10^3/ul (150-450); Red Blood Count 4.33 10^6/ul (4.00-5.40); Red Cell Distribution Width 15 % (10.5-15); White Blood Count 5.9 10^3/ul (3.5-10.8)
[2018-04-14 07:12] LABS: EGFR Non-African American 36.9 (>60)
[2018-04-14] MEDS: Insulin LISPRO* 1 UNITS UNIT SUBCUT SCH ×2 (08:12→12:49)
[2018-04-14] MEDS: Rivaroxaban TAB(*) 20 MG TAB PO SCH (08:13)
[2018-04-14] MEDS: Gemfibrozil TAB* 600 MG PO SCH (08:13)
[2018-04-14] MEDS: Magnesium Oxide TAB* 400 MG PO SCH (08:14)
[2018-04-14] MEDS: Dofetilide CAP* 500 MCG PO SCH (08:14)
[2018-04-14] MEDS ORDERED: Cholecalciferol TAB* 1000 UNITS PO SCH (09:00)
[2018-04-14] MEDS ORDERED: Aspirin EC TAB* 81 MG TAB.EC PO SCH (09:00)
[2018-04-14] MEDS ORDERED: Cyanocobalamin TAB* 500 MCG PO SCH (09:00)
[2018-04-14] MEDS ORDERED: Ramipril CAP* 10 MG PO SCH (09:00)
[2018-04-14] MEDS ORDERED: amLODIPine TAB* 5 MG PO SCH (09:00)
[2018-04-14] MEDS ORDERED: Regadenoson* 0.4 MG/5 ML SYRINGE ONE (09:03)
[2018-04-14] MEDS ORDERED: NS 0.9% 1000 ML* 1,000 ML IV SCH (09:15)
[2018-04-14] MEDS: Metoprolol Tartrate TAB* 25 MG PO SCH (12:54)
[2018-04-14] MEDS: ISOSORBIDE MONONITRATE 20 MG PO SCH (12:54)
--- NOTE | 2018-04-14 12:54 | RAD ---
HISTORY: Chest pain left bundle-branch block, hypertension, chest pain, shortness of breath, diabetes, history of previous intrathoracic and stenting COMPARISONS: December 07, 2015 TECHNIQUE: A 1 day stress/rest myocardial perfusion study was performed, with pharmacologic stress. The stress portion was monitored by Dr. Roth. Gated SPECT imaging was performed, with CT-based attenuation correction DOSE: Stress: Technetium 99m tetrofosmin, 25.8 millicuries, injected at 11:26 AM on April 14, 2018 Rest: Technetium 99m tetrofosmin, 10.32 millicuries, injected at 8:19 AM on April 14, 2018 Pharmacologic agent: Lexiscan FINDINGS: CARDIAC MONITORING: Abnormal baseline EKG precludes accurate assessment for ischemia EF: 58% TID: 1.12 MOTION: There is mild hypokinesia of the lateral wall. PERFUSION: There is a large fixed defect of the lateral wall similar to the previous examination. OTHER: None IMPRESSION: LARGE FIXED DEFECT OF THE LATERAL WALL SIMILAR TO THE PREVIOUS EXAMINATION. ASSESSMENT: INTERMEDIATE RISK. Based on imaging criteria from ACC/AHA 2002. Guideline Update for the Management of Patient's with Chronic Stable Angina, table 23. Noninvasive Risk Stratification.
[2018-04-14 12:56] VITALS: BP 141/69
[2018-04-14 13:44] LABS: EGFR Non-African American 42.4 (>60)
--- NOTE | 2018-04-15 03:50 | DS ---
CC: Peggy Hurst NP; Dr. Daniel; Dr. Freire * DISCHARGE SUMMARY: DATE OF ADMISSION: 04/13/18. DATE OF DISCHARGE: 04/14/18. PRIMARY CARE PROVIDER: Peggy Hurst NP. CARDIOLOGISTS: Dr. Daniel and Dr. Freire. DISCHARGE DIAGNOSIS: Atrial fibrillation with rapid ventricular response, status post cardioversion performed by Dr. Freire on 04/13/18. SECONDARY DIAGNOSES: 1. History of paroxysmal atrial fibrillation. 2. History of coronary artery disease, status post stent placement in the past. 3. History of diastolic congestive heart failure. 4. Hypertension. 5. Diabetes type 2. 6. Gastroesophageal reflux disease. 7. Hyperlipidemia. MEDICATIONS AT DISCHARGE: Unchanged from admission and include: 1. Xanax 0.5 mg at bedtime. 2. Norvasc 5 mg daily. 3. Aspirin 81 mg daily. 4. Vitamin D3 of 1000 units daily. 5. Vitamin B12 of 1000 mcg daily. 6. Tikosyn 500 mcg b.i.d. 7. Insulin Levemir 28 to 32 units b.i.d. 8. Imdur 20 mg b.i.d. 9. Iron supplements 65 mg daily. 10. Magnesium carbonate one spoon daily. 11. Metformin 1000 mg twice a day. 12. Metoprolol tartrate 75 mg b.i.d. 13. Altace 10 mg daily. 14. Rosuvastatin 20 mg daily. 15. Lopid 600 mg p.o. b.i.d. 16. Mag Ox 400 mg b.i.d. 17. Xarelto 20 mg p.o. daily. LABORATORY DATA: Studies performed during the hospital stay include: 1. On 04/14/18, white blood cell count of 5.9, hemoglobin of 12.0, hematocrit of 36, and platelets of 190. 2. Sodium of 136, potassium of 4.3, chloride of 103, carbon dioxide 23, BUN 27 , creatinine 1.25. Cholesterol profile showed triglycerides of 173, cholesterol total of 146, LDL of 80, and HDL of 31. The patient's TSH was 4.23. 3. The patient's magnesium on admission was 1.8. 4. Transthoracic echocardiogram obtained on 04/13/18, showed mild concentric LVH with mildly decreased left ventricular systolic function and multiple regional wall motion abnormalities. The EF of 40% to 45%. There was left ventricular septal wall motion abnormality observed postoperatively due to presence of left bundle- branch block. There was moderate mitral regurgitation and moderate tricuspid regurgitation. Similar to the echo from 2016, except for newly reported RVH and normal RV function. 5. Cardiac stress is obtained on 04/14/18. Impression: "Intermediate risk" based on imaging criteria, showed large fixed defect of the lateral wall similar to previous examination of 2016. HOSPITALIZATION COURSE: Najma Brown is a 72-year-old female with a history of paroxysmal atrial fibrillation, who presented to the hospital after she experienced an episode of substernal chest pressure and palpitations. In fact, she came in when she was en route to the hospital, she was sent on Cardizem drip and she accidentally received approximately 90 mg total of IV Cardizem. When she came into the emergency department, she was noted to be in atrial fibrillation with significant bradycardia. She received several doses of IV calcium. She continued to be atrial fibrillation by the time of admission with the heart rate in the 70s. Dr. Freire saw the patient in consultation and performed DC cardioversion, which was successful on 04/13/18. Due to the patient's history of chest pain prior to her admission, she underwent the cardiac stress test, which showed the same details that was there in 2016. The patient is in sinus rhythm, currently feels well. Denies chest pain and she is going to be discharged home with recommendations to follow up with her primary care provider in approximately [address] Daniel in 1 to 2 weeks. Please note that the patient's creatinine during her hospital stay increased transiently to 1.4 on 04/14/18, as she received a liter of intravenous hydration with the creatinine trending down to 1.25 by the time of discharge. The patient's calcium was also increased within 24 hours of admission with the level of 10.6. I suspect this all related due to her bradycardia and in that she received multiple IV calcium doses in an attempt to reverse her calcium channel brandon treatment at admission. PHYSICAL EXAMINATION: At time of discharge, blood pressure 131/69, heart rate of 61 and regular, respiratory rate of 12, oxygen saturation 98% on room air, temperature 97.4. General: The patient is a very pleasant 72-year-old female, who is in no acute distress, alert and awake and oriented x3. HEENT: Head: Atraumatic, normocephalic. Eyes: Pupils are equal, reactive to light and accommodation. Oropharynx is clear. Mucosa moist. Neck: Supple. No JVD. No bruits bilaterally. Cardiovascular: Regular rate and rhythm. No murmur. Respiratory: Clear to auscultation bilaterally. Abdomen: Soft, nontender. Bowel sounds are present in all 4 quadrants. Extremities: There is no edema. Pulses are +2 bilaterally. No clubbing or cyanosis. Neuro Evaluation: Nonfocal. Cranial nerves II through XII are grossly intact. Motor strength is 5/5 bilaterally. Please note that this is a short summary of the patient's hospitalization. Please refer to further medical records for details. TIME SPENT: Approximately 45 minutes were spent on the patient's discharge. [id number]/[facility] #: [id number] MTDD
== END 2018-04-14 16:00 | disposition home or self-care (01) ==
LOC: ED 04:52 → MEDTELE 10:01
PROVIDERS: ADMIT Internal Medicine; ATTEND Internal Medicine
DX: I48.0 Paroxysmal atrial fibrillation (principal); I25.10 Atherosclerotic heart disease of native coronary artery without angina pectoris; Z95.5 Presence of coronary angioplasty implant and graft; I11.0 Hypertensive heart disease with heart failure; I50.9 Heart failure, unspecified; E11.9 Type 2 diabetes mellitus without complications; K21.9 Gastro-esophageal reflux disease without esophagitis; D64.9 Anemia, unspecified; E78.5 Hyperlipidemia, unspecified; Z79.899 Other long term (current) drug therapy; R07.9 Chest pain, unspecified; R00.2 Palpitations; R94.31 Abnormal electrocardiogram [ECG] [EKG]; I51.7 Cardiomegaly; I44.7 Left bundle-branch block, unspecified; Z79.84 Long term (current) use of oral 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; Z79.01 Long term (current) use of anticoagulants; Z79.4 Long term (current) use of insulin
CPT/HCPCS: 36415; 71045; 78452; 80048; 80053; 80061; 83605; 83735; 83880; 84436; 84443; 84484; 85025; 85610; 85730; 93005; 93017; 93306; 96365; 96366; 96375; 96376; 99285; A9270-GY; A9502; G0378; J1610; J2250; J2310; J2405; J2785; J3010; J3475; J3490

== ENCOUNTER 2018-05-17 07:33 | Day surgery (SDC) | payer MEDICARE ==
[~2018-05-17 07:33] MED LIST: Acetaminophen TAB* 325 MG PO PRN; Buffered Lidocaine 0.9% SYRIN* 5 ML/SYR SYRINGE INTRADERM ONE
[2018-05-17] MEDS ORDERED: Phenylephrine 2.5% OPTH.SOL* 2 ML BTL ONE (07:59)
[2018-05-17] MEDS ORDERED: Tetracaine 0.5% OPTH.SOL 4 ML* 1 DROP BTL ONE (07:59)
[2018-05-17] MEDS ORDERED: Neomycin/Polymy/Dex OPHTH.OIN* 3.5 GM ONE (07:59)
[2018-05-17] MEDS ORDERED: Povidone Iodine 5% OPTH* 30 ML BTL ONE (07:59)
[2018-05-17] MEDS ORDERED: Tropicamide 1% OPTH.SOL* BTL ONE (07:59)
[2018-05-17] MEDS ORDERED: Lidocaine 1%* 5 ML VIAL ONE (07:59)
[2018-05-17] MEDS ORDERED: acetaZOLAMIDE TAB* 250 MG ONE (07:59)
[2018-05-17] MEDS ORDERED: Ketorolac 0.5% OPHTH (NF) 0.5 % 5 ML BTL ONE (07:59)
[2018-05-17] MEDS ORDERED: Cyclopentolate 1% OPTH.SOL* 2 ML BTL ONE (07:59)
[2018-05-17] MEDS ORDERED: fentaNYL* 50 MCG/ML 2 ML VIAL (100 MCG VIAL) ONE (08:37)
[2018-05-17] MEDS ORDERED: Midazolam* 1 MG/ML 2 ML VIAL (2 MG) ONE (08:37)
[2018-05-17 10:21] VITALS: BP 135/69
--- NOTE | 2018-05-17 22:08 | OP ---
OPERATIVE REPORT: DATE OF OPERATION: 05/17/18 - [facility] DATE OF : [birth year] SURGEON: Neftali Waldrop MD ANESTHESIA: Monitored anesthesia care. PRE-OP DIAGNOSIS: Cataract, right eye. POST-OP DIAGNOSIS: Cataract, right eye. OPERATIVE PROCEDURE: Extracapsular cataract extraction of the right eye with intraocular lens implant. IMPLANTS: SN60WF 22.5 diopter lens to the right eye. COMPLICATIONS: None. DESCRIPTION OF PROCEDURE: The patient was given phenylephrine 2.5% and cyclopentolate 1% eye drops to the operative eye in the preoperative area. The patient was taken to the operating room where a time-out was taken to identify the correct patient, site and side of surgery. The patient's right eye was prepped and draped in the usual sterile fashion with 5% Betadine. A second time -out was taken to verify the correct patient, site and side of surgery and correct lens implant. A lid speculum was placed to the right eye. A 1 mm paracentesis was created at the superotemporal position. Preservative-free 1% lidocaine was injected into the anterior chamber followed by DisCoVisc. A 2.75 mm triplanar incision was created at the inferotemporal position. A cystotome initiated a capsulorrhexis, which was completed with Utrata forceps. Hydrodissection of the lens was performed with BSS on a cannula. The lens could be spun in the capsular bag. The phacoemulsification handpiece was used with a [id number] technique to remove the nucleus with 17.33 CDE. The I /A handpiece then removed the residual cortical lens material. DisCoVisc was injected to inflate the capsular bag. The planned SN60WF 22.5 diopter lens was injected in the capsular bag. The residual DisCoVisc was removed from the eye with the I/A handpiece. The corneal incisions were hydrated and no leaks occurred at physiologic pressure around 20 mmHg per palpation. The lid speculum was removed and drapes removed. Maxitrol ointment was placed to the surface of the operative eye. An adhesive patch and shield was then placed in the operative eye. The patient was taken to the postoperative area in stable condition. [id number]/[facility] #: [id number] [facility]Nu
== END 2018-05-17 10:18 | disposition home or self-care (01) ==
LOC: OREAST 07:33
PROVIDERS: ATTEND Student in an Organized Health Care Education/Training Program
DX: H25.11 Age-related nuclear cataract, right eye (principal); E11.9 Type 2 diabetes mellitus without complications; Z79.84 Long term (current) use of oral 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; I25.10 Atherosclerotic heart disease of native coronary artery without angina pectoris; I10 Essential (primary) hypertension; E78.2 Mixed hyperlipidemia; I48.0 Paroxysmal atrial fibrillation; Z79.01 Long term (current) use of anticoagulants; I25.119 Atherosclerotic heart disease of native coronary artery with unspecified angina pectoris; I25.2 Old myocardial infarction; Z95.5 Presence of coronary angioplasty implant and graft
CPT/HCPCS: A9270-GY; J2250; J3010; V2632

== ENCOUNTER 2018-05-24 09:08 | Day surgery (SDC) | payer MEDICARE ==
[2018-05-24] MEDS ORDERED: Midazolam* 1 MG/ML 2 ML VIAL (2 MG) ONE (10:28)
[2018-05-24] MEDS ORDERED: fentaNYL* 50 MCG/ML 2 ML VIAL (100 MCG VIAL) ONE (10:28)
[2018-05-24] MEDS ORDERED: Phenylephrine 2.5% OPTH.SOL* 2 ML BTL ONE (11:13)
[2018-05-24] MEDS ORDERED: Ketorolac 0.5% OPHTH (NF) 0.5 % 5 ML BTL ONE (11:13)
[2018-05-24] MEDS ORDERED: Tetracaine 0.5% OPTH.SOL 4 ML* 1 DROP BTL ONE (11:13)
[2018-05-24] MEDS ORDERED: Neomycin/Polymy/Dex OPHTH.OIN* 3.5 GM ONE (11:13)
[2018-05-24] MEDS ORDERED: Povidone Iodine 5% OPTH* 30 ML BTL ONE (11:13)
[2018-05-24] MEDS ORDERED: acetaZOLAMIDE TAB* 250 MG ONE (11:13)
[2018-05-24] MEDS ORDERED: Tropicamide 1% OPTH.SOL* BTL ONE (11:13)
[2018-05-24] MEDS ORDERED: Lidocaine 1%* 5 ML VIAL ONE (11:13)
[2018-05-24] MEDS ORDERED: Cyclopentolate 1% OPTH.SOL* 2 ML BTL ONE (11:13)
[2018-05-24] MEDS ORDERED: Ondansetron INJ* 2 MG/ML VIAL IV ONE (11:27)
[2018-05-24] MEDS ORDERED: Ondansetron INJ* 2 MG/ML VIAL ONE (11:29)
[2018-05-24 11:43] VITALS: BP 152/88
--- NOTE | 2018-05-24 12:45 | OP ---
DATE OF OPERATION: 05/24/2018 - [facility] DATE OF : 1945. SURGEON: Neftali Waldrop MD ANESTHESIA: Monitored anesthesia care. PREOPERATIVE DIAGNOSIS: Cataract, left eye. POSTOPERATIVE DIAGNOSIS: Cataract, left eye. OPERATIVE PROCEDURE: Extracapsular cataract extraction of the left eye with intraocular lens implant. IMPLANT: SN60WF 22.5 diopter lens to the left eye. COMPLICATIONS: None. DESCRIPTION OF PROCEDURE: The patient was given phenylephrine 2.5 % and cyclopentolate 1% eye drops to the operative eye in the preoperative area. The patient was taken to the operating room where a time-out was taken to identify the correct patient, site, and side of surgery. The patient's left eye was prepped and draped in the usual sterile fashion with 5% Betadine. A second time- out was taken to verify the correct patient, side, and site of surgery, as well as the correct lens implant. A lid speculum was placed to the left eye. A 1mm paracentesis blade was used to make a clear corneal incision. Preservative-free 1% lidocaine was injected into the anterior chamber. DisCoVisc was then injected into the anterior chamber. A 2.75 mm keratome blade was used to make a triplanar incision. A cystotome initiated a capsulorrhexis, which was completed with Utrata forceps in a continuous and curvilinear manner. Hydrodissection of the lens was performed with BSS on a cannula. The lens could be spun in a capsular bag. The phacoemulsification handpiece was used with a divide-and- conquer technique to remove the nucleus. The I/A handpiece then removed the residual cortical lens material. DisCoVisc was injected to inflate the capsular bag. The planned SN60WF 22.5 diopter lens was injected into the capsular bag. The residual DisCoVisc was removed from the eye with the I/A handpiece. The corneal incisions were hydrated and no leaks occurred at physiologic pressure around 20 mmHg per palpation. The lid speculum was removed and drapes were removed. Maxitrol ointment was placed to the surface of the operative eye. An adhesive patch and shield was then placed on the operative eye. The patient was taken to the postoperative area in stable condition. [id number]/[facility] #: [id number] [facility]
== END 2018-05-24 17:07 | disposition home or self-care (01) ==
LOC: OREAST 09:08
PROVIDERS: ATTEND Student in an Organized Health Care Education/Training Program
DX: H25.12 Age-related nuclear cataract, left eye (principal); E11.9 Type 2 diabetes mellitus without complications; Z79.84 Long term (current) use of oral 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; I10 Essential (primary) hypertension; I48.91 Unspecified atrial fibrillation; Z79.01 Long term (current) use of anticoagulants; I25.2 Old myocardial infarction; F41.9 Anxiety disorder, unspecified
CPT/HCPCS: A9270-GY; J2250; J2405; J3010; V2632

== ENCOUNTER 2018-08-15 08:49 | Emergency (ER) | payer MEDICARE ==
[2018-08-15] MEDS ORDERED: Diltiazem IV* 5 MG/ML 5 ML VIAL (for loading dose/IV Push) (25 MG) IV SLOW PU ONE (09:08)
[2018-08-15] MEDS ORDERED: Magnesium Sulfate 1 GM IV* 1 GM/100 ML BAG IV ONE (09:08)
--- NOTE | 2018-08-15 09:09 | ED ---
Palpitations / Dysrhythmia - HPI Summary HPI Summary: Pt is a 72 y/o female who presents to the ED c/o palpitations since 7:00 this morning. She states this is the third time shes had palpitations this week, however today they are lasting longer. She describes it as if her heart is beating out of her chest, and she feels like she is breathing faster. Pt sees Dr. Daniel for her HTN and intermittent AFib, but hasnt seen him for her recent symptoms. She is on Xarelto. Pt denies any CP. She recently had a cold. Pt takes magnesium for her symptoms, and states her Mg is supposed to be at a 2.0. PMHx DM. She denies smoking, drinking, or drug use. - History of Current Complaint Chief Complaint: EDDysrhythmPalp Time Seen by Provider: 08/15/18 08:58 Hx Obtained From: Patient Onset/Duration: Lasting Days - Approx. 1 week, Still Present Timing: Intermittent Episodes Lasting: Character: Fast, Pounding Alleviating: Nothing Related History: Similar Episode/Dx as - Earlier this week - Allergy/Home Medications Allergies/Adverse Reactions: Allergies Allergy/AdvReac Type Severity Reaction Status Date / Time adhesive tape Allergy Intermediate Rash Verified 06/10/18 22:04 PMH/Surg Hx/FS Hx/Imm Hx Endocrine/Hematology History: Reports: Hx Diabetes - insulin dependent, Hx Anemia Denies: Hx Unexplained Bleeding Cardiovascular History: Reports: Hx Angina, Hx Angioplasty, Hx Cardiomegaly, Hx Congestive Heart Failure, Hx Coronary Artery Disease, Hx Hypercholesterolemia, Hx Hypertension, Hx Myocardial Infarction, Other Cardiovascular Problems/ Disorders - LBBB Denies: Hx Auto Implanted Cardiovert Defib, Hx Cardiac Arrest, Hx Congenital Heart Disease, Hx Deep Vein Thrombosis, Hx Embolism, Hx Hypotension, Hx Pacemaker/ICD, Hx Peripheral Vascular Disease, Hx Rheumatic Fever, Hx Syncope, Hx Valvular Heart Disease Respiratory History: Reports: Hx Asthma GI History: Reports: Hx Gastroesophageal Reflux Disease, Hx Hiatal Hernia, Other GI Disorders - hemorrhoids History: Reports: Other Problems/Disorders - UTI Musculoskeletal History: Reports: Hx Arthritis Sensory History: Reports: Hx Cataracts - both Denies: Hx Contacts or Glasses, Hx Hearing Aid Opthamlomology History: Reports: Hx Cataracts - both Denies: Hx Contacts or Glasses Psychiatric History: Reports: Hx Anxiety - one anxiety attack 2004 - Cancer History Hx Chemotherapy: No - Surgical History Surgery Procedure, Year, and Place: hysterectomy, cholecysytecomy, tumor removed from between toes, appendectomy Hx Anesthesia Reactions: No Infectious Disease History: No Infectious Disease History: Denies: Traveled Outside the [place] in Last 30 Days - Family History Known Family History: Positive: Cardiac Disease - Bypass, AAA, [place], CAD, Diabetes - GRANDMOTHER, Other - Dementia - Social History Alcohol Use: None Hx Substance Use: No Substance Use Type: Reports: None Hx Tobacco Use: No Smoking Status (MU): Never Smoked Tobacco Review of Systems Positive: Palpitations. Negative: Chest Pain Positive: Shortness Of Breath - Increased breathing rate All Other Systems Reviewed And Are Negative: Yes Physical Exam - Summary Physical Exam Summary: Appearance: Well appearing, no pain distress Skin: warm, dry, reflects adequate perfusion Head/face: normal Eyes: EOMI, WENDY ENT: mucous membranes moist Neck: supple, non-tender Respiratory: CTA, breath sounds present Cardiovascular: irregular and fast, pulses symmetrical Abdomen: non-tender, soft Bowel Sounds: present Musculoskeletal: normal, strength/ROM intact Neuro: normal, sensory motor intact, A&Ox3 Triage Information Reviewed: Yes Vital Signs On Initial Exam: Initial Vitals Temp Pulse Resp BP Pulse Ox 97.7 F 131 20 173/110 97 08/15/18 08:50 08/15/18 08:50 08/15/18 08:50 08/15/18 08:50 08/15/18 08:50 Vital Signs Reviewed: Yes Diagnostics - Vital Signs Vital Signs Temp Pulse Resp BP Pulse Ox 08/15/18 08:50 97.7 F 131 20 173/110 97 - Laboratory Result Diagrams: 08/15/18 09:07 08/15/18 09:07 Lab Statement: Any lab studies that have been ordered have been reviewed, and results considered in the medical decision making process. - Radiology CXR Radiology Interpretation Completed By: Radiologist - NO ACTIVE CARDIOPULMONARY DISEASE. ED physician reviewed radiology report. - EKG 9:01 Cardiac Rate: Other Rate - 120 bpm EKG Rhythm: Atrial Fibrillation ST Segment: Non-Specific Summary of EKG Findings: LAD, LBBB Re-Evaluation - Re-Evaluation First Eval Re-Evaluation Time: 09:17 Change: Improved Comment: HR now in the 60s. Second Eval Re-Evaluation Time: 09:46 Change: Improved Comment: Pt feels a lot better. Course/Dx - Course Course Of Treatment: Patient with a history of paroxysmal atrial fibrillation presents with same. She was rapid ventricular response but broke prior to any medication being given here. She was given a dose of IV magnesium and beta brandon. She feels well. I discussed the case with the senior firmware engineer who does not want to alter her medications or add anything at this point. He will follow -up with her early in the week. She is already on a anticoagulant. - Diagnoses Differential Diagnosis/HQI/PQRI: Positive: AV Block, Congestive Heart Failure, Medication Induced, Panic Disorder, Paroxymal SVT Provider Diagnoses: Rapid atrial fibrillation, Elevated blood pressure reading - Physician Notifications Discussed Care Of Patient With: Ender Daniel Time Discussed With Above Provider: 10:04 Instructed by Provider To: Other - Dr. Daniel does not want to make changes to pt 's medication regiment. Discharge - Sign-Out/Discharge Documenting (check all that apply): Patient Departure - Discharge - Discharge Plan Condition: Improved Disposition: HOME Patient Education Materials: A-fib (Atrial Fibrillation) (ED) Referrals: Peggy Hurst [Primary Care Provider] - Domenico Daniel MD [Medical Doctor] - Additional Instructions: Continue outpatient magnesium. A multivitamin taken every day may help. Call in the morning for follow-up with your senior firmware engineer. Return if worse, new symptoms or other concerns. - Billing Disposition and Condition Condition: IMPROVED Disposition: Home - Attestation Statements Document Initiated by Scribe: Yes Documenting Scribe: Lisbeth Gutierrez Provider For Whom Margarita is Documenting (Include Credential): Jitendra Ramirez MD Scribe Attestation: Lisbeth Joel, scribed for Jitendra Ramirez MD on 08/15/18 at 1146. Scribe Documentation Reviewed: Yes Provider Attestation: The documentation as recorded by the Lisbeth thompson accurately reflects the service I personally performed and the decisions made by me, Jitendra Ramirez MD
[2018-08-15] MEDS ORDERED: Metoprolol Tartrate IV* 1 MG/ML 5 ML VIAL IV ONE (09:17)
[2018-08-15 09:22] LABS: ABS Basophils 0.1 10^3/ul (0-0.2); ABS Eosinophils 0.7 10^3/ul (0-0.6); ABS Lymphocytes 2.9 10^3/ul (1.0-4.8); ABS Monocytes 0.6 10^3/ul (0-0.8); ABS Neutrophils 4.5 10^3/ul (1.5-7.7); ABS Nucleated RBC 0 10^3/ul; Eosinophil % 7.4 % (0-6); Hematocrit 43 % (35-47); Hemoglobin 13.9 g/dl (12.0-16.0); Lymphocyte % 33.1 % (25-47); Mean Corpuscular HGB Conc 32 g/dl (31-36); Mean Corpuscular Hemoglobin 27 pg (27-31); Mean Corpuscular Volume 84 fL (80-97); Mean Platelet Volume 10.1 fL (7.4-10.4); Nucleated Red Blood Cells % 0.1; Platelet Count 297 10^3/ul (150-450); Red Blood Count 5.15 10^6/ul (4.00-5.40); Red Cell Distribution Width 15 % (10.5-15); White Blood Count 8.8 10^3/ul (3.5-10.8)
[2018-08-15 09:30] LABS: INR 1.19 (0.77-1.02)
[2018-08-15 09:39] LABS: EGFR Non-African American 63.5 (>60)
[2018-08-15 10:17] VITALS: BP 150/81
== END 2018-08-15 10:16 | disposition home or self-care (01) ==
LOC: ED 08:49
DX: I48.91 Unspecified atrial fibrillation (principal); R00.2 Palpitations; R06.02 Shortness of breath; E11.9 Type 2 diabetes mellitus without complications; Z79.4 Long term (current) use of insulin; R03.0 Elevated blood-pressure reading, without diagnosis of hypertension
CPT/HCPCS: 36415; 71045; 80053; 83605; 83735; 83880; 84484; 85025; 85610; 93005; 96365; 96375; 99282; J3490

== ENCOUNTER 2018-10-11 21:33 | Emergency (ER) | payer MEDICARE ==
--- OUTSIDE RECORDS SUMMARY | 2018-10-11 21:44 | XMS REPORT | Continuity of Care Document ---
:1945 External Reference #:[id number] Author Name Nanda Woody Care Team Providers Name Role Phone Peggy Hurst NP Primary Care Physician Unavailable Payers Type Date Identification Numbers Payment Provider Subscriber Effective: Policy Number: Medicare Blue Ppo Najma Brown 2012 [id number] Group Number: [id number] [address] [id number] PayID: [id number] [place] [address] Advance Directives Description No Information Available Problems Date Description Provider Status Onset: 11/18/2013 Coronary arteriosclerosis Ender Daniel M.D., Active ANUSHA ACKERMAN Onset: 12/12/2015 Paroxysmal atrial fibrillation Ender Daniel M.D., Active ANUSHA ACKERMAN Onset: 03/05/2016 Paroxysmal atrial fibrillation Ender Daniel M.D., Active ANUSHA ACKERMAN Onset: 03/17/2016 Disturbance in sleep behavior Bela Ellsworth MD Active Onset: 03/17/2016 REM sleep behavior disorder Bela Ellsworth MD Active Onset: 03/17/2016 Obesity Bela Ellsworth MD Active Onset: Atrial fibrillation Active Onset: Chest pain Active Onset: H/O: anticoagulant therapy Active Onset: For resuscitation Active Onset: Gastroesophageal reflux disease Active Onset: Hypertensive disorder Active Onset: 08/17/2018 Disorder of magnesium metabolism Tameka Penaloza MD Active Onset: 08/17/2018 Hypothyroidism Tameka Penaloza MD Active Onset: 08/17/2018 Cobalamin deficiency Tameka Penaloza MD Active Onset: 08/17/2018 Anemia Tameka Penaloza MD Active Family History Date Family Member(s) Problem(s) Comments Father Heart Disease Father Stroke Father paternal grandmother-diabetes Father paternal grandfather-HTN Mother dementia Mother maternal grandmother-diabetes Social History Type Date Description Comments Sex Unknown Marital Status Lives With Occupation Retired Tobacco Use Start: Unknown not smoking ETOH Use Denies alcohol use Tobacco Use Start: Unknown Patient has never Pt denies ever smoked smoking cigarettes, e-cigarettes, cigar, pipe, or using chewing tobacco. Recreational Drug Use Denies Drug Use Smoking Status Reviewed: 09/16/18 Patient has never Pt denies ever smoked smoking cigarettes, e-cigarettes, cigar, pipe, or using chewing tobacco. Exercise Type/Frequency Exercises sporadically Allergies, Adverse Reactions, Alerts Date Description Reaction Status Severity Comments 03/11/2017 NKDA Active 07/22/2012 Adhesives RASH Active Mild Medications Medication Date Status Form Strength Qnty SIG Indications Ordering Provider Magnesium 09/16/20 Active Solution 2GM/50ML 2gm 2 grams E83.42 Tameka Sulfate 18 iv MD Ca I10 Iron (Ferrous 09/16/2018 Active Tablets 256(28Fe) 60tabs 1 tab by D50.9 Tameka Gluconate) mg mouth Ca, twice a MD day with meals Altace 02/10/2017 Active Capsules 10mg 2 po Unknown daily Norvasc 03/05/2016 Active Tablets 5mg 90tabs take one Ender Irizarry tablet by estiven Daniel per M.D., [facility], day. FASNC Levemir Active Solution 100Unit/ML per Unknown Flexpen sliding scale Alprazolam Active Tablets 0.5mg One po Unknown Qhs Crestor Active Tablets 20mg One po Unknown Qhs Isosorbide Active Tablets 20mg One po Unknown Mononitrate bid Aspirin Ec Active 81mg 1 po qd Unknown Vitamin D Active Tablets 1000Iu 1 by Unknown mouth every day Xarelto Active Tablets 20mg 1 by Unknown mouth every day Vitamin B-12 Active Sublingual 1000mg 1 by Unknown mouth every day Gemfibrozil Active Tablets 600mg 1 by Unknown mouth twice a day Metformin HCL Active Tablets 1000mg 1 by Unknown mouth twice a day Tikosyn Active Capsules 500mcg 180caps 1 by Ender Irizarry mouth Fredy, twice a M.D., FACC, day FASNC Metoprolol Active Tablets ER 25mg 3 tablet Natali, Succinate ER 24HR po twice Peggy C., daily( [employer] Medicatio n change December 2015 s/p Tikosyn) Magnesium Active 2 by Unknown Oxide mouth twice a day Levemir 02/10/2017 Hx Solution 100Unit/ML Every Unknown - Evening 02/10/2017 sliding scale Metoprolol 03/29/2016 Hx Tablets 75mg 1 po bid Unknown Tartrate - 02/10/2017 Metoprolol 03/05/2016 Hx Tablets ER 50mg 75 mg po Ender Irizarry Succinate ER - 24HR bid per Fredy, 07/20/2017 patient M.D., FACC, 02/11/17 FASNC Diltiazem HCL 01/21/2016 Hx Tablets 60mg 90tabs 1 by Ender Irizarry - mouth Daniel, 03/05/2016 every 8 M.D., FACC, hours (pt FASNC not taking) Magnesium 12/17/2015 Hx Tablets 400mg 1 tablet Unknown Oxide - po twice 08/17/2018 daily Metoprolol 12/12/2015 Hx Tablets 50mg 60tabs 1 by Ender Irizarry Tartrate - mouth Fredy, 12/12/2015 twice a M.D., FACC, day, 75 FASNC mg in am, 100 mg pm Metoprolol 12/12/2015 Hx Tablets 50mg 360tabs take Ender Irizarry Tartrate - three 25 Daniel, 03/05/2016 mg tabs M.D., FACC, to equal FASNC 75 mg in the Am and PM . (pt on metoprolo l succ ER) Aspirin Low 12/06/2015 Hx Chewtabs 81mg Every Day Unknown Dose - 02/03/2017 Metoprolol 03/17/2013 Hx Tablets 50mg 315tabs one and Ender Irizarry Tartrate - one half Daniel, 12/12/2015 every in M.D., FACC, the FASWI morning, two every at night (75mg in the morning, 100mg pm) Isosorbide 08/05/2012 Hx Tablets ER 30mg 30tabs 1 po qd Ender Irizarry Mononitrate - 24HR Daniel, ER 11/17/2013 Julia, [facility], [facility] Metoprolol 07/22/2012 Hx Tablets ER 50mg 75tabs Two and a Ender Irizarry Succinate ER - 24HR half Daniel, 12/11/2015 tablets Julia [facility], po daily [facility] Gemfibrozil Hx Tablets 600mg One po Unknown - bid 12/11/2015 Glyburide Hx Tablets 2.5mg One po Unknown - bid 12/11/2015 Amlodipine Hx Tablets 10mg One po Unknown Besylate - every am 12/11/2015 Hydralazine Hx Tablets 50mg One and Unknown HCL - one half 01/20/2016 po bid Clopidogrel Hx Tablets 75mg One po Unknown - daily 12/11/2015 Ramipril Hx Capsules 20mg one po Unknown - every am 02/10/2017 (pt takes 2-10mg tabs daily) Zantac 150 Hx Tablets 150mg 60tabs 1 po bid Unknown Maximum - Strength 01/20/2016 Metformin HCL Hx Tablets 1000mg 1 by Unknown - mouth in 12/11/2015 am Metformin HCL Hx Tablets 500mg 1 by Unknown - mouth in 12/11/2015 pm Stool Hx Capsules 100mg by mouth Unknown Softener - twice a 04/10/2016 day Magnesium Hx Capsules 400mg 2 by Unknown - mouth 02/10/2017 every day Diltiazem HCL Hx Tablets 30mg 1 by Unknown - mouth 01/21/2016 every 8 hours Esomeprazole Hx Capsules DR 40mg 1 by Unknown Magnesium - mouth 04/10/2016 every day Dany Hx Liquid 200mg 2-3 times Unknown Magnesium - per day 05/06/2018 Ferrous Hx Tablets 65mg 1 by Unknown Sulfate - mouth 08/17/2018 every day ( started December 2016 ) Magamag Hx Liquid 3oomg by Unknown - mouth 08/17/2018 twice a day Medications Administered in Office Medication Date Status Form Strength Qnty SIG Indications Ordering Provider Inj, Administered Injection Ender Juan C Regadenoson, 012 Fredy, 0.1 MG Julia, FACRere, ANUSHA Technetium TC Administered Injection Ender Juan C 99M 012 Fredy TetrofrojelioinJulia, [facility], Per Unit Dose FASJERICA Up To 40 Millicuries Immunizations Description No Information Available Vital Signs Date Vital Result Comment 09/16/2018 10:44am Height 63.5 inches 5'3.50" Weight 197.00 lb Heart Rate 62 /min BP Systolic Sitting 176 mmHg BP Diastolic Sitting 93 mmHg Respiratory Rate 16 /min BMI (Body Mass Index) 34.3 kg/m2 08/17/2018 11:01am Heart Rate 68 /min BP Systolic 157 mmHg BP Diastolic 86 mmHg Body Temperature 97.2 F O2 % BldC Oximetry 96 % 08/17/2018 2:38pm Height 63.50 inches 5'3.50" Weight 199.00 lb with shoes Heart Rate 60 /min BP Systolic Sitting 150 mmHg Rue reg cuff BP Diastolic Sitting 80 mmHg Rue reg cuff BP Systolic Standing 122 mmHg Rue * after lying down post 12 lead ekg stood up BP Diastolic Standing 80 mmHg Rue * after lying down post 12 lead ekg stood up Respiratory Rate 16 /min BMI (Body Mass Index) 34.7 kg/m2 Ejection Fraction 40-45% date 04/13/18 ECHO 05/07/2018 9:50am Height 63.50 inches 5'3.50" Weight 205.00 lb Heart Rate 68 /min SL Irregular BP Systolic Sitting 160 mmHg LA Large Cuff BP Diastolic Sitting 92 mmHg LA Large Cuff BP Systolic Standing 160 mmHg LA Large Cuff BP Diastolic Standing 82 mmHg LA Large Cuff Respiratory Rate 16 /min Pain Level 0 O2 % BldC Oximetry 96 % BMI (Body Mass Index) 35.7 kg/m2 02/10/2018 8:02am Height 63.50 inches 5'3.50" Weight 208.00 lb No shoes Heart Rate 66 /min BP Systolic Sitting 134 mmHg BP Diastolic Sitting 80 mmHg BP Systolic Standing 138 mmHg BP Diastolic Standing 88 mmHg Respiratory Rate 16 /min BMI (Body Mass Index) 36.3 kg/m2 Ejection Fraction 45-50% 07/07/2017-echo 07/21/2017 1:03pm Height 63.50 inches 5'3.50" Weight 210.00 lb with shoes Heart Rate 66 /min BP Systolic Sitting 130 mmHg Rue reg cuff BP Diastolic Sitting 74 mmHg Rue reg cuff BP Systolic Standing 122 mmHg Rue reg cuff BP Diastolic Standing 80 mmHg Rue reg cuff Respiratory Rate 16 /min BMI (Body Mass Index) 36.6 kg/m2 Ejection Fraction 45-50% date 07/07/17 echo 03/11/2017 8:34am Height 63.50 inches 5'3.50" Weight 205.00 lb Heart Rate 60 /min BP Systolic Sitting 120 mmHg BP Diastolic Sitting 74 mmHg Respiratory Rate 12 /min Pain Level 0 BMI (Body Mass Index) 35.7 kg/m2 02/11/2017 10:17am Height 63.50 inches 5'3.50" Weight 205.00 lb Heart Rate 61 /min BP Systolic 150 mmHg BP Diastolic 94 mmHg Respiratory Rate 16 /min Pain Level 0 at rest O2 % BldC Oximetry 96 % BMI (Body Mass Index) 35.7 kg/m2 02/10/2017 12:00am Height 64 inches Weight 202.00 lb Heart Rate 68 /min BP Systolic 145 mmHg BP Diastolic 72 mmHg Respiratory Rate 16 /min Body Temperature 98.4 F O2 % BldC Oximetry 97 % BMI (Body Mass Index) 34.7 kg/m2 01/20/2017 9:14am Height 64 inches 5'4" Weight 205.56 lb with shoes Heart Rate 60 /min BP Systolic Sitting 160 mmHg Lue reg cuff BP Diastolic Sitting 90 mmHg Lue reg cuff BP Systolic Standing 158 mmHg Lue reg cuf BP Diastolic Standing 80 mmHg Lue reg cuf BMI (Body Mass Index) 35.3 kg/m2 Ejection Fraction 40-45% date 12/07/15 ECHO 08/04/2016 10:54am Height 64 inches 5'4" Weight 204.50 lb no shoes Heart Rate 60 /min BP Systolic Sitting 140 mmHg Rue reg cuff BP Diastolic Sitting 82 mmHg Rue reg cuff BP Systolic Standing 134 mmHg Rue reg cuff BP Diastolic Standing 80 mmHg Rue reg cuff Respiratory Rate 15 /min BMI (Body Mass Index) 35.1 kg/m2 Ejection Fraction 40-45% 12/07/2015 04/11/2016 8:19am Height 64 inches 5'4" Weight 209.00 lb w/o shoes Heart Rate 60 /min BP Systolic Sitting 142 mmHg Ra lrg cuff BP Diastolic Sitting 90 mmHg Ra lrg cuff BP Systolic Standing 142 mmHg Ra lrg cuff BP Diastolic Standing 84 mmHg Ra lrg cuff BMI (Body Mass Index) 35.9 kg/m2 Ejection Fraction 40% - 45% echo 12/07/15 03/17/2016 9:02am Height 64 inches 5'4" Weight 212.00 lb Heart Rate 68 /min BP Systolic 142 mmHg BP Diastolic 78 mmHg Respiratory Rate 15 /min O2 % BldC Oximetry 97 % BMI (Body Mass Index) 36.4 kg/m2 Neck Circumference in inches 15 03/05/2016 8:21am Height 64 inches 5'4" Weight 212.00 lb no shoes Heart Rate 58 /min BP Systolic Sitting 152 mmHg Ra reg cuff BP Diastolic Sitting 90 mmHg Ra reg cuff BP Systolic Standing 152 mmHg Ra reg cuff BP Diastolic Standing 90 mmHg Ra reg cuff Respiratory Rate 14 /min BMI (Body Mass Index) 36.4 kg/m2 Ejection Fraction 40-45% 01/21/2016 10:00am Height 64 inches 5'4" Weight 216.00 lb with shoes Heart Rate 78 /min BP Systolic Sitting 148 mmHg LA reg cuff BP Diastolic Sitting 90 mmHg LA reg cuff BP Systolic Standing 140 mmHg LA reg cuff BP Diastolic Standing 94 mmHg LA reg cuff Respiratory Rate 17 /min BMI (Body Mass Index) 37.1 kg/m2 Ejection Fraction 40-45% date 12/07/15 ECHO 12/12/2015 9:33am Height 65 inches 5'5" Weight 214.00 lb no shoes Heart Rate 68 /min BP Systolic Sitting 144 mmHg Ra reg cuff BP Diastolic Sitting 82 mmHg Ra reg cuff BP Systolic Standing 142 mmHg Ra regcuff BP Diastolic Standing 88 mmHg Ra regcuff BP Systolic Recheck 110 mmHg BP Diastolic Recheck 88 mmHg Respiratory Rate 14 /min BMI (Body Mass Index) 35.6 kg/m2 Ejection Fraction 40-45% 11/08/15 07/23/2015 9:41am Height 65 inches 5'5" Weight 219.00 lb w/o shoes Heart Rate 68 /min reg BP Systolic Sitting 146 mmHg Lue, reg cuff BP Diastolic Sitting 86 mmHg Lue, reg cuff BP Systolic Standing 142 mmHg Lue BP Diastolic Standing 90 mmHg Lue Respiratory Rate 18 /min BMI (Body Mass Index) 36.4 kg/m2 Ejection Fraction 55% as of 11/16/13 echo 01/17/2015 8:39am Height 65 inches 5'5" Weight 224.00 lb w/o shoes Heart Rate 62 /min irreg BP Systolic Sitting 126 mmHg Ra, reg cuff BP Diastolic Sitting 80 mmHg Ra, reg cuff BP Systolic Standing 124 mmHg Ra BP Diastolic Standing 84 mmHg Ra Respiratory Rate 18 /min BMI (Body Mass Index) 37.3 kg/m2 07/03/2014 11:20am Height 65 inches 5'5" Weight 227.00 lb with out shoes Heart Rate 70 /min BP Systolic Sitting 140 mmHg La lg cuff BP Diastolic Sitting 70 mmHg La lg cuff BP Systolic Standing 144 mmHg La lg cuff BP Diastolic Standing 70 mmHg La lg cuff Respiratory Rate 16 /min BMI (Body Mass Index) 37.8 kg/m2 11/18/2013 11:57am Height 62 inches 5'2" Weight 226.00 lb no shoes, increase 3 lbs Heart Rate 78 /min BP Systolic Sitting 118 mmHg LA, large cuff BP Diastolic Sitting 76 mmHg LA, large cuff BP Systolic Standing 128 mmHg LA BP Diastolic Standing 80 mmHg LA Respiratory Rate 16 /min BMI (Body Mass Index) 41.3 kg/m2 Results Test Date Facility Test Result H/L Range Note Basic Metabolic 09/08/2018 [facility] Sodium 139 mmol/L N 135- [address] [place] [address] [phone] Potassium 4.3 mmol/L N 3.5-5.0 Chloride 104 mmol/L N 101-111 Co2 Carbon Dioxide 25 mmol/L N 22-32 Anion Gap 10 mmol/L N 2-11 Glucose 119 mg/dL High 70-100 Blood Urea Nitrogen 22 mg/dL N 6-24 Creatinine 0.79 mg/dL N 0.51-0.95 BUN/Creatinine Ratio 27.8 High 8-20 Egfr Non- 71.9 >60 Egfr 87.1 >60 1 Laboratory test 09/08/2018 [facility] Magnesium 1.7 mg/dL Low 1.9-2.[address] [place] [address] [phone] Calcium 10.3 mg/dL N 8.6-10.3 Albumin 4.4 g/dL N 3.2-5.2 Urine Magnesium 08/23/2018 [facility] Urine Magnesium 135 mg/ 24h 51 - 269 [address] [place] [address] [phone] Urine Collection Duration 24 h Urine Volume 900 mL Urine Magnesium mg/dL 15 mg/dL 3 Laboratory test finding 08/23/2018 [facility] Albumin 4.4 g/dL N 3.2-5.[address] [place] [address] [phone] Miscellaneous Test See Comment 4 CBC Auto Diff 08/23/2018 [facility] White Blood 6.0 10^3/uL N 3.5-10.[address] [place] [address] [phone] Red Blood Count 4.66 10^6/uL N 4.00-5.40 Hemoglobin 12.5 g/dL N 12.0-16.0 Hematocrit 39 % N 35-47 Mean Corpuscular Volume 83 fL N 80-97 Mean Corpuscular Hemoglobin 27 pg N 27-31 Mean Corpuscular HGB Conc 33 g/dL N 31-36 Red Cell Distribution Width 15 % N 10.5-15 Platelet Count 235 10^3/uL N 150-450 Mean Platelet Volume 11.2 fL High 7.4-10.4 Abs Neutrophils 3.1 10^3/uL N 1.5-7.7 Abs Lymphocytes 1.9 10^3/uL N 1.0-4.8 Abs Monocytes 0.5 10^3/uL N 0-0.8 Abs Eosinophils 0.5 10^3/uL N 0-0.6 Abs Basophils 0 10^3/uL N 0-0.2 Abs Nucleated RBC 0 10^3/uL Granulocyte % 51.3 % N 38-83 Lymphocyte % 31.9 % N 25-47 Monocyte % 7.9 % High 0-7 Eosinophil % 8.2 % High 0-6 Basophil % 0.7 % N 0-2 Nucleated Red Blood Cells % 0.1 Laboratory test 08/23/2018 [facility] TSH (Thyroid 1.99 mcIU/mL N 0.34-5.[address] Stim [place]orm) [place] [address] [phone] Free T4 (Free Thyroxine) 0.64 ng/dL N 0.61-1.12 Vitamin B12 And 08/23/2018 [facility] Vitamin B12 985 pg/mL High 180-914 5 Folate Serum [address] [place] [address] [phone] Folic Acid (Folate) 6.74 ng/mL >3.99 Laboratory test 08/23/2018 [facility] Transferrin 357 mg/dL N 203-362 finding [address] [place] [address] [phone] Ferritin 41.5 ng/mL N 11-307 Vitamin D Total 25(Oh) 60.9 ng/mL High 20-50 Iron & Iron Binding 08/23/2018 [facility] Iron 78 g/dL N 50- 212 [address] [place] [address] [phone] Unsaturated Iron Binding < 485 g/dL Total Iron Binding Capacity 500 g/dL High 250-450 % Iron Saturation 16 % N 15-55 Laboratory test 08/23/2018 [facility] Magnesium 1.6 mg/dL Low 1.9-2.7 finding [address] [place] [address] [phone] Calcium 10.8 mg/dL High 8.6-10.3 Comp Metabolic Panel 08/23/2018 [facility] Sodium 141 mmol/L N 135-145 [address] [place] [address] [phone] Potassium 4.0 mmol/L N 3.5-5.0 Chloride 104 mmol/L N 101-111 Co2 Carbon Dioxide 25 mmol/L N 22-32 Anion Gap 12 mmol/L High 2-11 Total Bilirubin 0.40 mg/dL N 0.2-1.0 Total Protein 7.3 g/dL N 6.4-8.9 Globulin 2.9 g/dL N 2-4 Albumin/Globulin Ratio 1.5 N 1-3 Glucose 183 mg/dL High 70-100 Blood Urea Nitrogen 26 mg/dL High 6-24 Creatinine 0.94 mg/dL N 0.51-0.95 BUN/Creatinine Ratio 27.7 High 8-20 Alkaline Phosphatase 63 U/L N 34-104 Alt 23 U/L N 7-52 Ast 36 U/L N 13-39 Egfr Non- 58.9 >60 Egfr 71.2 >60 6 Creatinine 08/23/2018 [facility] Creatinine, 0.97 High 0.51- 0.[address] Serum mg/[place] [address] [phone] Urine Collection Time 24 hr Urine Total Volume 900 mL Creatinine Clearance 59 mL/min Low 88-128 Laboratory test 08/23/2018 [facility] Creatinine Random 91.98 mg /dL finding [address] [place] [address] [phone] Calcium Random Urine <pending> Urine Magnesium 08/23/2018 [facility] Urine Magnesium 15 mg/dL [address] [place] [address] [phone] Creatinine Concentration 80 mg/dL Magnesium/Creatinine Ratio 0.188 mg/mg >=0.035 8 Calcium,24 08/23/2018 [facility] Urine Calcium 144 mg/24h < 200 9 Hour,Urine [address] [place] [address] [phone] Urine Collection Duration 24 h Urine Volume 900 mL Urine Calcium Conc 16 mg/dL 10 1 Because ethnic data is not always readily available, this report includes an eGFR for both -Americans and non- Americans. The National Kidney Disease Education Program (NKDEP) does not endorse the use of the MDRD equation for patients that are not between the ages of 18 and 70, are , have extremes of body size, muscle mass, or nutritional status, or are non- or non-. According to the National Kidney Foundation, irrespective of diagnosis, the stage of the disease is based on the level of kidney function: Stage Description GFR(mL/min/1.73 m(2)) 1 Kidney damage with normal or decreased GFR 90 2 Kidney damage with mild decrease in GFR 60-89 3 Moderate decrease in GFR 30-59 4 Severe decrease in GFR 15-29 5 Kidney failure <15 (or dialysis) 2 ADDITIONAL INFORMATION This test has been modified from the collection card clerk's instructions. Its performance characteristics were determined by [facility] in a manner consistent with CLIA requirements. This test has not been cleared or approved by the U.S. Food and Drug Administration. 3 Test Performed by: [facility] - [address] [address] 4 Test Result Flag Unit RefValue Calcium, Random, U 26 mg/dL ADDITIONAL INFORMATION This test has been modified from the collection card clerk's instructions. Its performance characteristics were determined by [facility] in a manner consistent with CLIA requirements. This test has not been cleared or approved by the U.S. Food and Drug Administration. Creatinine Concentration 516 mg/dL Calcium/Creatinine Ratio 0.05 mg/mg <0.20 Test Performed by: [address] [address] 5 Normal Range 180 to 914 Indeterminate Range 145 to 180 Deficient Range <145 6 Because ethnic data is not always readily available, this report includes an eGFR for both -Americans and non- Americans. The National Kidney Disease Education Program (NKDEP) does not endorse the use of the MDRD equation for patients that are not between the ages of 18 and 70, are , have extremes of body size, muscle mass, or nutritional status, or are non- or non-. According to the National Kidney Foundation, irrespective of diagnosis, the stage of the disease is based on the level of kidney function: Stage Description GFR(mL/min/1.73 m(2)) 1 Kidney damage with normal or decreased GFR 90 2 Kidney damage with mild decrease in GFR 60-89 3 Moderate decrease in GFR 30-59 4 Severe decrease in GFR 15-29 5 Kidney failure <15 (or dialysis) 7 ADDITIONAL INFORMATION This test has been modified from the collection card clerk's instructions. Its performance characteristics were determined by [facility] in a manner consistent with CLIA requirements. This test has not been cleared or approved by the U.S. Food and Drug Administration. 8 Test Performed by: [facility] - [address] [address] 9 ADDITIONAL INFORMATION This test has been modified from the collection card clerk's instructions. Its performance characteristics were determined by [facility] in a manner consistent with CLIA requirements. This test has not been cleared or approved by the U.S. Food and Drug Administration. 10 Test Performed by: [facility] - [address] [address] Procedures Date Code Description Status 08/17/2018 81075 EKG Tracing & Interpretation Completed 05/07/2018 60303 EKG Tracing & Interpretation Completed 04/14/2018 07999 Treadmill Interp/Report Only Completed 04/14/2018 85914 Stress Test Supervsn W/Out I/R Completed 04/14/2018 06341 EKG, Interpretation Only Completed 04/13/2018 58893 ECHO Transthorasic Realtime 2D W Doppler & Color Flow Hosp Completed 04/13/2018 96946 EKG, Interpretation Only Completed 02/10/2018 75881 EKG Tracing & Interpretation Completed 07/21/2017 88499 EKG Tracing & Interpretation Completed 07/07/2017 18526 ECHO Transthoracic, Real-Time 2D With Doppler And Color Completed Flow 03/11/2017 96560 Rad Exam; Elbow, Limited Completed 03/11/2017 88542 Rad Exam; Clavicle Comp Completed 02/11/2017 37193 Closed TRTMT Clavicular Fracture Completed 01/20/2017 38050 EKG Tracing & Interpretation Completed 08/04/2016 84208 EKG Tracing & Interpretation Completed 03/05/2016 59265 EKG Tracing & Interpretation Completed 12/17/2015 89524 EKG, Interpretation Only Completed 12/12/2015 48387 EKG Tracing & Interpretation Completed 12/07/2015 95713 ECHO Transthorasic Realtime 2D W Doppler & Color Flow Hosp Completed 12/07/2015 69053 Treadmill Interp/Report Only Completed 12/07/2015 54011 Stress Test Supervsn W/Out I/R Completed 01/17/2015 66049 EKG Tracing & Interpretation Completed 11/18/2013 43150 EKG Tracing & Interpretation Completed 11/16/2013 25607 ECHO Transthoracic, Real-Time 2D With Doppler And Color Completed Flow 08/02/2012 85983 Stress Test Completed 08/02/2012 48784 Myocardial Perfusion Imaging Tomographic (Spect) Multiple Completed Studies 07/22/2012 09127 EKG Tracing & Interpretation Completed Encounters Type Date Location Provider Dx Diagnosis Office Visit 08/17/2018 [facility] Tameka Cresporaman, E83.42 Hypomagnesemia 11:00a D64.9 Anemia, unspecified D51.9 Vitamin B12 deficiency anemia, unspecified I10 Essential (primary) hypertension E03.9 Hypothyroidism, unspecified Office Visit 08/17/2018 3:00p [place] [place] [facility] Ender Irizarry I48.0 Paroxysmal atrial Of Meera Daniel M.D., fibrillation [facility] Office Visit 05/07/2018 10:00a Cardiology Ender Irizarry I48.0 Paroxysmal atrial Services Of Meera Daniel M.D., fibrillation [facility] I25.10 [facility] [place] coronary artery w/o ang pctrs Office Visit 04/14/2018 [facility] Julissa Bone, I48.0 Paroxysmal atrial 4:10p Assochenrique M.D. fibrillation Hospitalists Office Visit 04/13/2018 [facility] Efren Cruz, I48.91 Unspecified 4:09p DO atrial fibrillation J81.0 Acute pulmonary edema J90 Pleural effusion, not elsewhere classified T46.1x1A Poisoning by calcium-channel blockers, accidental, init Office Visit 04/13/2018 [facility] Bahgat R07.9 Chest pain, 4:08p Assoc,pc DOMENICO [place] unspecified Hospitalists R00.2 Palpitations I48.2 Chronic atrial fibrillation Office Visit 04/13/2018 9:23a [facility] Agustin Sen R07.9 Chest painTani M.D. unspecified I48.0 Paroxysmal atrial fibrillation I25.10 [facility] [place] coronary artery w/o ang pctrs I10 Essential (primary) hypertension J90 Pleural effusion, not elsewhere classified J81.0 Acute pulmonary edema Office Visit 02/10/2018 8:45a [facility] Endertamara Irizarry I10 Essential (primary) Of Meera Daniel M.D., hypertension FACC, FASNC I25.10 [facility] heart disease of [place] coronary artery w/o ang pctrs I48.0 Paroxysmal atrial fibrillation Office Visit 07/21/2017 1:15p [facility] Endertamara Irizarry I25.10 [facility] heart Of Meera Daniel M.D., disease of FACC, FASNC [place] coronary artery w/o ang pctrs I48.0 Paroxysmal atrial fibrillation [facility].10 [facility] heart Of Meera Daniel M.D., disease of FACC, FASNC [place] coronary artery w/o ang pctrs R94.31 Abnormal electrocardiogram [ECG] [EKG] I48.0 Paroxysmal atrial fibrillation I34.0 Nonrheumatic mitral (valve) insufficiency 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 fibrillation Hospitalists R07.9 Chest pain, unspecified R79.89 Other specified abnormal findings of blood chemistry E11.8 Type 2 diabetes mellitus with unspecified complications Office Visit 03/17/2016 8:45a [facility] Bela G47.9 Sleep disorder, Sleep Services Of MD Jodee unspecified [facility] G47.52 REM sleep behavior disorder E66.09 Other obesity due to excess calories Office Visit 03/05/2016 8:45a [facility] Endertamara Irizarry I48.0 Paroxysmal atrial Of Meera Daniel M.D., fibrillation FACC, FASNC Office Visit 01/21/2016 10:00a [facility] Endertamara Irizarry I48.0 Paroxysmal atrial Of Meera Daniel M.D., fibrillation FACC, FASNC Office Visit 12/17/2015 3:58p [facility] Arina I48.0 Paroxysmal atrial Assoc,pc Rootarias, DO fibrillation Hospitalists R79.89 Other specified abnormal findings of blood chemistry I25.10 [facility] heart disease of [place] coronary artery w/o ang pctrs I10 Essential (primary) hypertension Office Visit 12/16/2015 [facility] Raf Thakkar I48.0 Paroxysmal atrial 3:57p Assoc,henrique CERVANTES M.D. fibrillation Hospitalists R79.89 Other specified abnormal findings of blood chemistry I25.10 [facility] heart disease of [place] coronary artery w/o ang pctrs I10 Essential (primary) hypertension Office Visit 12/12/2015 9:45a [facility] Ender Juan C I48.0 Paroxysmal atrial Of Meera Daniel M.D., fibrillation FACC, FASNC Office Visit 12/07/2015 10:15a [facility] Rafael Jones, I48.91 Unspecified atrial Assochenrique M.D. fibrillation Hospitalists I25.10 [place] heart disease of [place] coronary artery w/o ang pctrs E11.9 Type 2 diabetes mellitus without complications I10 Essential (primary) hypertension Office Visit 07/23/2015 [place] Ender Irizarry I25.10 [facility] heart disease 9:45a Cardiology Of Julia Daniel, of [place] coronary [employer] FACC, FASNC artery w/o ang pctrs Office Visit 01/17/2015 Nalini Irizarry 414.01 Coronary 9:00a [facility] Of Julia Daniel, Atherosclerosis [employer] FACC, FASNC [place] Office Visit 07/03/2014 Nalini Irizarry 414.01 Coronary 11:15a Cardiology Of Julia Daniel, Atherosclerosis [employer] FACC, FASNC [place] Office Visit 11/18/2013 Nalini Irizarry 414.01 Coronary 12:00p Cardiology Of Julia Daniel, Atherosclerosis [employer] FACC, FASNC [place] Office Visit 05/03/2013 Nalini Irizarry 414.9 Ischemic Heart 8:45a Cardiology Of Julia Daniel, Disease Chronic [employer] FACC, FASNC Unspec Office Visit 03/17/2013 Nalini Irizarry 414.9 Ischemic Heart 8:15a Cardiology Of Julia Daniel, Disease Chronic [employer] FACC, FASNC Unspec Office Visit 09/16/2012 Nalini Irizarry 414.9 Ischemic Heart 8:15a Cardiology Of Julia Daniel, Disease Chronic [employer] FACC, FASNC Unspec Office Visit 08/05/2012 [place] Ender Irizarry 414.9 Ischemic Heart 8:15a Cardiology Of Julia Daniel, Disease Chronic [facility], FASNC Unspec Office Visit 07/22/2012 Nalini Irizarry 414.9 Ischemic Heart 9:15a Cardiology Of Julia Daniel, Disease Chronic [facility], [facility] Unspec Plan of Treatment Future Appointment(s):11/17/2018 11:00 am - Tameka Penaloza MD at [facility] [id number]/13/2018 - Tameka Penaloza MDE83.42 HypomagnesemiaNew Medication: Magnesium Sulfate 2 GM/50ML - 2 grams ivD50.9 Iron deficiency anemia, unspecifiedNew Medication:Iron (Ferrous Gluconate) 256(28 Fe) mg - 1 tab by mouth twice a day with [id number] Essential (primary) hypertensionNew Medication: Magnesium Sulfate 2 GM/50ML - 2 grams iv
--- NOTE | 2018-10-11 22:16 | ED ---
Palpitations / Dysrhythmia - HPI Summary HPI Summary: This patient is a 73 year old F brought in by EMS to [facility] accompanied by her with a chief complaint of afib that began at 1600 tonight. EMS states she was in the 150s upon their arrival, she states she is in NSR usually. She does have a hx of afib. Last time she was seen in the ED she got magnesium and this resolved her afib. They were about to cardiovert her until this unexpected resolution. She was told by a slackman she is losing magnesium and she is on a new supplement for this. Going in and out of what she believes is Afib is not uncommon for her and she states that usually is resolved spontaneously in 30 min. Today at 1600 she had just took her mag supplement when she felt like a hammer hit her in the chest. The pressure with the afib is new to her and along with this the racing palpitations did not resolve after an hour as they usually do. At 1800 she took half of her daily metoprolol (12.5mg) as this is what she was instructed to do in the past per Dr. Daniel. This did not resovle the sx so at that point she called EMS. Although she states that shortly after EMS arrived all sx dissipated. The patient rates the pain 2/10 in severity on onset and states it did not radiate. Patient reports cold chills and dizziness that accompanied the palpitations. Patient denies SOB and diaphoresis. She takes xarelto and 81 ASA every morning. The patient has 6 stents with the last one being placed 10 years ago. Her last stress test was 2 years ago. - History of Current Complaint Chief Complaint: EDDysrhythmPalp Time Seen by Provider: 10/11/18 21:50 Hx Obtained From: Patient Onset/Duration: Lasting Hours, Resolved Timing: Intermittent Episodes Lasting: Severity Initially: Moderate Severity Currently: None Character: Fast, Irregular Alleviating: Other - spontaneous Associated Signs & Symptoms: Dizzy, Chest Pain - Allergy/Home Medications Allergies/Adverse Reactions: Allergies Allergy/AdvReac Type Severity Reaction Status Date / Time adhesive tape Allergy Intermediate Rash Verified 09/16/18 13:50 Home Medications: Home Medications Magnesium Chloride EC TAB* [Slow Mag EC TAB*] 64 mg PO DAILY 10/11/18 [History Confirmed 10/11/18] PMH/Surg Hx/FS Hx/Imm Hx Endocrine/Hematology History: Reports: Hx Diabetes - insulin dependent, Hx Anemia Denies: Hx Unexplained Bleeding Cardiovascular History: Reports: Hx Angina, Hx Angioplasty, Hx Cardiomegaly, Hx Congestive Heart Failure, Hx Coronary Artery Disease, Hx Hypercholesterolemia, Hx Hypertension, Hx Myocardial Infarction, Other Cardiovascular Problems/ Disorders - LBBB Denies: Hx Auto Implanted Cardiovert Defib, Hx Cardiac Arrest, Hx Congenital Heart Disease, Hx Deep Vein Thrombosis, Hx Embolism, Hx Hypotension, Hx Pacemaker/ICD, Hx Peripheral Vascular Disease, Hx Rheumatic Fever, Hx Syncope, Hx Valvular Heart Disease Respiratory History: Reports: Hx Asthma GI History: Reports: Hx Gastroesophageal Reflux Disease, Hx Hiatal Hernia, Other GI Disorders - hemorrhoids History: Reports: Other Problems/Disorders - UTI Musculoskeletal History: Reports: Hx Arthritis Sensory History: Reports: Hx Cataracts - both Denies: Hx Contacts or Glasses, Hx Hearing Aid Opthamlomology History: Reports: Hx Cataracts - both Denies: Hx Contacts or Glasses Psychiatric History: Reports: Hx Anxiety - one anxiety attack 2004 - Cancer History Hx Chemotherapy: No - Surgical History Surgery Procedure, Year, and Place: hysterectomy, cholecysytecomy, tumor removed from between toes, appendectomy Hx Anesthesia Reactions: No Infectious Disease History: No Infectious Disease History: Denies: Traveled Outside the [place] in Last 30 Days - Family History Known Family History: Positive: Cardiac Disease - Bypass, AAA, [place], CAD, Diabetes - GRANDMOTHER, Other - Dementia - Social History Alcohol Use: None Hx Substance Use: No Substance Use Type: Reports: None Hx Tobacco Use: No Smoking Status (MU): Never Smoked Tobacco Review of Systems Positive: Chills. Negative: Skin Diaphoresis Positive: Palpitations, Chest Pain Negative: Shortness Of Breath Neurological: Other - dizziness All Other Systems Reviewed And Are Negative: Yes Physical Exam - Summary Physical Exam Summary: VITAL SIGNS: Reviewed. GENERAL: Patient is a well-developed and nourished female who is lying comfortable in the stretcher. Patient is not in any acute respiratory distress. HEAD AND FACE: No signs of trauma. No ecchymosis, hematomas or skull depressions. No sinus tenderness. EYES: PERRLA, EOMI x 2, No injected conjunctiva, no nystagmus. EARS: Hearing grossly intact. Ear canals and tympanic membranes are within normal limits. MOUTH: Oropharynx within normal limits. NECK: Supple, trachea is midline, no adenopathy, no JVD, no carotid bruit, no c- spine tenderness, neck with full ROM. CHEST: Symmetric, no tenderness at palpation LUNGS: Clear to auscultation bilaterally. No wheezing or crackles. CVS: Regular rate and rhythm, S1 and S2 present, no murmurs or gallops appreciated. ABDOMEN: Soft, non-tender. No signs of distention. No rebound no guarding, and no masses palpated. Bowel sounds are normal. EXTREMITIES: FROM in all major joints, no edema, no cyanosis or clubbing. NEURO: Alert and oriented x 3. No acute neurological deficits. Speech is normal and follows commands. SKIN: Dry and warm Triage Information Reviewed: Yes Vital Signs On Initial Exam: Initial Vitals Temp Pulse Resp BP Pulse Ox 97.4 F 67 18 153/89 97 10/11/18 21:38 10/11/18 21:38 10/11/18 21:38 10/11/18 21:38 10/11/18 21:38 Vital Signs Reviewed: Yes Diagnostics - Vital Signs Vital Signs Temp Pulse Resp BP Pulse Ox 10/11/18 21:38 97.4 F 67 18 153/89 97 - Laboratory Result Diagrams: 10/11/18 22:44 10/11/18 22:44 Lab Statement: Any lab studies that have been ordered have been reviewed, and results considered in the medical decision making process. - EKG 2206 Cardiac Rate: NL EKG Rhythm: Sinus Rhythm - at 63 BPM Summary of EKG Findings: RBBB that is old Course/Dx - Course Assessment/Plan: This patient is a 73 year old F brought in by EMS to [facility] accompanied by her with a chief complaint of afib that began at 1600 tonight. EMS states she was in the 150s upon their arrival, she states she is in NSR usually. She does have a hx of afib. Last time she was seen in the ED she got magnesium and this resolved her afib. They were about to cardiovert her until this unexpected resolution. She was told by a slackman she is losing magnesium and she is on a new supplement for this. Going in and out of what she believes is Afib is not uncommon for her and she states that usually is resolved spontaneously in 30 min. Today at 1600 she had just took her mag supplement when she felt like a hammer hit her in the chest. The pressure with the afib is new to her and along with this the racing palpitations did not resolve after an hour as they usually do. At 1800 she took half of her daily metoprolol (12.5mg) as this is what she was instructed to do in the past per Dr. Daniel. This did not resovle the sx so at that point she called EMS. Although she states that shortly after EMS arrived all sx dissipated. The patient rates the pain 2/10 in severity on onset and states it did not radiate. Patient reports cold chills and dizziness that accompanied the palpitations. Patient denies SOB and diaphoresis. She takes xarelto and 81 ASA every morning. The patient has 6 stents with the last one being placed 10 years ago. Her last stress test was 2 years ago. An EKG reveals NR 63 LBBB which is old. 2206. Lab work obtained. In the ED course the patient was given magnesium. The patient was asymptomatic in the ED for 5 hours. She also had two negative troponins. Patient will be discharged and follow up from PCP. The patient is agreeable with this plan. - Diagnoses Provider Diagnoses: Paroxysmal A-fib Discharge - Sign-Out/Discharge Documenting (check all that apply): Patient Departure - Discharge Plan Condition: Stable Disposition: HOME Patient Education Materials: A-fib (Atrial Fibrillation) (DC) Referrals: Peggy Hurst [Primary Care Provider] - 2 Days Additional Instructions: RETURN TO THE EMERGENCY DEPARTMENT FOR CHANGING OR WORSENING SYMPTOMS - Attestation Statements Document Initiated by Scribe: Yes Documenting Scribe: Rigoberto Crow Provider For Whom Margarita is Documenting (Include Credential): Valerie Carbajal MD Scribe Attestation: Rigoberto Joel , scribed for Valerie Carbajal MD on 10/12/18 at 0235. Status of Scribe Document: Ready
[2018-10-11 22:50] LABS: ABS Basophils 0.1 10^3/ul (0-0.2); ABS Eosinophils 0.8 10^3/ul (0-0.6); ABS Lymphocytes 2.2 10^3/ul (1.0-4.8); ABS Monocytes 0.5 10^3/ul (0-0.8); ABS Neutrophils 3.7 10^3/ul (1.5-7.7); ABS Nucleated RBC 0 10^3/ul; Eosinophil % 10.8 %; Hematocrit 39 % (35-47); Hemoglobin 12.8 g/dl (12.0-16.0); Lymphocyte % 29.8 %; Mean Corpuscular HGB Conc 33 g/dl (31-36); Mean Corpuscular Hemoglobin 27 pg (27-31); Mean Corpuscular Volume 83 fL (80-97); Mean Platelet Volume 9.6 fL (7.4-10.4); Nucleated Red Blood Cells % 0; Platelet Count 272 10^3/ul (150-450); Red Blood Count 4.72 10^6/ul (4.00-5.40); Red Cell Distribution Width 15 % (10.5-15); White Blood Count 7.2 10^3/ul (3.5-10.8)
[2018-10-11 23:03] LABS: Activated Partial Thrombo Time 40.3 seconds (26.0-36.3); INR 1.25 (0.77-1.02)
[2018-10-11 23:07] LABS: Albumin 4.3 g/dL (3.2-5.2); Albumin/Globulin Ratio 1.5 (1-3); BUN/Creatinine Ratio 32.5 (8-20); Calcium 10.4 mg/dL (8.6-10.3); EGFR Non-African American 70.7 (>60); Globulin 2.9 g/dL (2-4); Magnesium 1.7 mg/dL (1.9-2.7); Potassium 4.7 mmol/L (3.5-5.0); Total Bilirubin 0.3 mg/dL (0.2-1.0); Total Protein 7.2 g/dL (6.4-8.9)
[2018-10-11] MEDS ORDERED: Magnesium Sulfate 2 GM IV* 2 GM/50 ML BAG IVPB ONE (23:28)
[2018-10-11 23:46] LABS: TSH (Thyroid Stimulating Horm) 2.5 mcIU/mL (0.34-5.60)
[2018-10-12 02:22] VITALS: BP 144/76
== END 2018-10-12 02:46 | disposition home or self-care (01) ==
LOC: ED 21:33
DX: I48.0 Paroxysmal atrial fibrillation (principal); R00.2 Palpitations; R42 Dizziness and giddiness; R07.9 Chest pain, unspecified
CPT/HCPCS: 36415; 80053; 83605; 83735; 83880; 84443; 84484; 85025; 85610; 85730; 93005; 96365; 99284; J3475

== ENCOUNTER 2019-01-22 17:41 | Emergency (ER) | payer MEDICARE ==
[2019-01-22] MEDS ORDERED: NS 0.9% 1000 ML** 1,000 ML IV ONE (18:08)
--- NOTE | 2019-01-22 18:09 | ED ---
Back Pain - HPI Summary HPI Summary: Patient is a 73-year-old female who presents emergency department for left low back pain that started several days ago. 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 Patient denies radiation of pain into her abdomen, legs, chest. She denies recent illness, fever, cough, chest pain, shortness of breath, abdominal pain, vomiting, diarrhea, urinary symptoms. Patient notes she did have a urinary tract infection a few weeks ago and her symptoms have resolved antibiotics. Symptoms are moderate in severity. Pain is worse with movement and going from sitting to standing. Patient does not take any [id number] analgesics. She did apply heat today which did improve pain and primarily. Symptoms are moderate in severity. Movement makes symptoms worse. Rest makes symptoms better. - History of Current Complaint Chief Complaint: EDFlankPain Stated Complaint: LOWER BACK PAIN PER PT Time Seen by Provider: 01/22/19 17:49 Hx Obtained From: Patient Pain Intensity: 7 - Allergies/Home Medications Allergies/Adverse Reactions: Allergies Allergy/AdvReac Type Severity Reaction Status Date / Time adhesive tape Allergy Intermediate Rash Verified 01/22/19 17:47 PMH/Surg Hx/FS Hx/Imm Hx Previously Healthy: Yes Endocrine/Hematology History: Reports: Hx Diabetes - insulin dependent, Hx Anemia Denies: Hx Unexplained Bleeding Cardiovascular History: Reports: Hx Angina, Hx Angioplasty, Hx Cardiomegaly, Hx Congestive Heart Failure, Hx Coronary Artery Disease, Hx Hypercholesterolemia, Hx Hypertension, Hx Myocardial Infarction, Other Cardiovascular Problems/ Disorders - LBBB Denies: Hx Auto Implanted Cardiovert Defib, Hx Cardiac Arrest, Hx Congenital Heart Disease, Hx Deep Vein Thrombosis, Hx Embolism, Hx Hypotension, Hx Pacemaker/ICD, Hx Peripheral Vascular Disease, Hx Rheumatic Fever, Hx Syncope, Hx Valvular Heart Disease Respiratory History: Reports: Hx Asthma GI History: Reports: Hx Gastroesophageal Reflux Disease, Hx Hiatal Hernia, Other GI Disorders - hemorrhoids History: Reports: Other Problems/Disorders - UTI Musculoskeletal History: Reports: Hx Arthritis Sensory History: Reports: Hx Cataracts - both Denies: Hx Contacts or Glasses, Hx Hearing Aid Opthamlomology History: Reports: Hx Cataracts - both Denies: Hx Contacts or Glasses Psychiatric History: Reports: Hx Anxiety - one anxiety attack 2004 - Cancer History Hx Chemotherapy: No - Surgical History Surgery Procedure, Year, and Place: hysterectomy, cholecysytecomy, tumor removed from between toes, appendectomy Hx Anesthesia Reactions: No Infectious Disease History: No Infectious Disease History: Denies: Traveled Outside the [place] in Last 30 Days - Family History Known Family History: Positive: Cardiac Disease - Bypass, AAA, [place], CAD, Diabetes - GRANDMOTHER, Other - Dementia - Social History Occupation: Retired Lives: With Family Alcohol Use: None Hx Substance Use: No Substance Use Type: Reports: None Hx Tobacco Use: No Smoking Status (MU): Never Smoked Tobacco Review of Systems Constitutional: Negative Negative: Fever, Chills Cardiovascular: Negative Negative: Palpitations, Chest Pain Respiratory: Negative Negative: Shortness Of Breath, Cough Gastrointestinal: Negative Negative: Abdominal Pain, Vomiting, Diarrhea, Nausea Genitourinary: Negative Negative: frequency, hematuria Positive: Other - left low back pain Skin: Negative Neurological: Negative All Other Systems Reviewed And Are Negative: Yes Physical Exam Triage Information Reviewed: Yes Vital Signs On Initial Exam: Initial Vitals Temp Pulse Resp BP Pulse Ox 97.5 F 73 16 160/77 98 01/22/19 17:44 01/22/19 17:44 01/22/19 17:44 01/22/19 17:44 01/22/19 17:44 Vital Signs Reviewed: Yes Appearance: Positive: Well-Appearing - Pt. sitting on bed in NAD. present. Skin: Positive: Warm, Dry Head/Face: Positive: Normal Head/Face Inspection Eyes: Positive: Normal, EOMI Neck: Positive: Supple Abdomen Description: Positive: Other: - Abd. abd. is soft with mild tenderness to lower abd. No rebound tenderness or guarding. No CVA tenderness bilaterally. Musculoskeletal: Positive: Normal, Strength/ROM Intact, Other - Left paraspinal lumbar tenderness. Neurological: Positive: Normal, CN Intact II-III Psychiatric: Positive: Affect/Mood Appropriate Diagnostics - Vital Signs Vital Signs Temp Pulse Resp BP Pulse Ox 01/22/19 17:44 97.5 F 73 16 160/77 98 - Laboratory Result Diagrams: 01/22/19 18:19 01/22/19 18:19 Lab Statement: Any lab studies that have been ordered have been reviewed, and results considered in the medical decision making process. Back Pain Course/Dx - Course Course Of Treatment: Pt. presenting for atraumatic left flank pain. Pt. notes recently UTI. She is afebrile. Will obtain labs, ct, ecg for further evaluation. ECG done at 181 shows a sinus rhythm of 64 bpm, left axis deviation, LBBB, no ST elevation or depression, similar to prior tracing. Labs and urine unremarkable. CT scan negative for acute findings per radiology. Suspect pain is muscular. Results discussed. Advised tylenol for pain as directed. To apply warm compresses. Close f.u with pcp and return to er if sxs change or worsen. Pt. understands and agrees with plan. - Diagnoses Differential Diagnosis/HQI/PQRI: Positive: Aneurysm, Arthritis, Cauda Equina Syndrome, Herniated Disc, Renal Colic, Strain, Sprain Provider Diagnoses: Muscle strain Discharge - Sign-Out/Discharge Documenting (check all that apply): Patient Departure Patient Received Moderate/Deep Sedation with Procedure: No - Discharge Plan Condition: Good Disposition: HOME Patient Education Materials: Muscle Strain (ED), Back Pain (ED) Referrals: Peggy Hurst [Primary Care Provider] - Additional Instructions: Schedule a follow up appointment with PCP on Thursday Tylenol for pain as directed Apply warm compresses Avoid heavy lifting Return to ER if symptoms change or worsen - Billing Disposition and Condition Condition: GOOD Disposition: Home
[2019-01-22 18:27] LABS: Urine Appearance Clear; Urine Bacteria Absent (Absent); Urine Bilirubin Negative (Negative); Urine Blood 1+ (Negative); Urine Color Straw; Urine Glucose Negative (Negative); Urine Ketones Negative (Negative); Urine Nitrite Negative (Negative); Urine Protein Negative (Negative); Urine Red Blood Cell Absent (Absent); Urine Specific Gravity 1.005 (1.010-1.030); Urine Urobilinogen Negative (Negative); Urine White Blood Cell Trace(0-5/hpf) (Absent)
[2019-01-22 18:33] LABS: ABS Basophils 0.1 10^3/ul (0-0.2); ABS Eosinophils 0.8 10^3/ul (0-0.6); ABS Lymphocytes 2.2 10^3/ul (1.0-4.8); ABS Monocytes 0.6 10^3/ul (0-0.8); ABS Neutrophils 3.1 10^3/ul (1.5-7.7); ABS Nucleated RBC 0 10^3/ul; Eosinophil % 11.9 %; Hematocrit 36 % (33-41); Hemoglobin 11.6 g/dL (12.0-16.0); Lymphocyte % 32.5 %; Mean Corpuscular HGB Conc 33 g/dL (31-36); Mean Corpuscular Hemoglobin 28 pg (27-31); Mean Corpuscular Volume 85 fL (80-97); Mean Platelet Volume 9.7 fL (7.4-10.4); Nucleated Red Blood Cells % 0; Platelet Count 250 10^3/uL (150-450); Red Blood Count 4.21 10^6 /uL (3.70-4.87); Red Cell Distribution Width 16 % (10.5-15); White Blood Count 6.8 10^3/uL (3.5-10.8)
[2019-01-22 18:50] LABS: ALT 17 U/L (7-52); AST 24 U/L (13-39); Albumin 4.2 g/dL (3.2-5.2); Albumin/Globulin Ratio 1.4 (1-3); Alkaline Phosphatase 61 U/L (34-104); BUN/Creatinine Ratio 24.3 (8-20); Blood Urea Nitrogen 27 mg/dL (6-24); C Reactive Protein < 1.00 mg/L (<8.01); CO2 Carbon Dioxide 22 mmol/L (22-32); Calcium 9.6 mg/dL (8.6-10.3); Chloride 110 mmol/L (101-111); EGFR African American 58.6 (>60); EGFR Non-African American 48.5 (>60); Glucose 124 mg/dL (70-100); Magnesium 1.8 mg/dL (1.9-2.7); Sodium 138 mmol/L (135-145); Total Protein 7.2 g/dL (6.4-8.9)
[2019-01-22 18:52] LABS: Troponin I 0.01 ng/mL (<0.04)
[2019-01-22 18:53] LABS: Anion Gap 6 mmol/L (2-11)
[2019-01-22] MEDS ORDERED: Iodixanol* (CONTRAST) 320 MG/ML 100 ML SDV IV ONE (19:17)
[2019-01-22] MEDS ORDERED: Magnesium Oxide TAB* 400 MG PO ONE (20:25)
[2019-01-22] MEDS ORDERED: Acetaminophen TAB* 325 MG PO ONE (20:25)
[2019-01-22 21:33] VITALS: BP 117/70
== END 2019-01-22 21:32 | disposition home or self-care (01) ==
LOC: ED 17:41
DX: S39.012A Strain of muscle, fascia and tendon of lower back, initial encounter (principal); X58.XXXA Exposure to other specified factors, initial encounter; N20.0 Calculus of kidney; I44.7 Left bundle-branch block, unspecified; I11.0 Hypertensive heart disease with heart failure; I50.9 Heart failure, unspecified; I25.10 Atherosclerotic heart disease of native coronary artery without angina pectoris; I25.2 Old myocardial infarction; E78.00 Pure hypercholesterolemia, unspecified; D64.9 Anemia, unspecified; E11.9 Type 2 diabetes mellitus without complications; K21.9 Gastro-esophageal reflux disease without esophagitis; K44.9 Diaphragmatic hernia without obstruction or gangrene; M19.90 Unspecified osteoarthritis, unspecified site; F41.9 Anxiety disorder, unspecified; Z79.4 Long term (current) use of insulin; Z98.61 Coronary angioplasty status
CPT/HCPCS: 36415; 71045; 74177; 80053; 81003; 81015; 83605; 83735; 84484; 85025; 86140; 87086; 93005; 96360; 96361; 99282; A9270-GY; Q9967

== ENCOUNTER 2019-08-20 17:22 | Emergency (ER) | payer MEDICARE ==
--- OUTSIDE RECORDS SUMMARY | 2019-08-20 17:32 | XMS REPORT | Continuity of Care Document ---
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 Active Problems Provider Date Coronary arteriosclerosis Ender Daniel M.D., [facility], Onset: 11/18/2013 FASNC Paroxysmal atrial fibrillation Ender Daniel M.D., [facility], Onset: 2015 FASNC Paroxysmal atrial fibrillation Ender Daniel M.D., [facility], Onset: 2015 FASNC Disturbance in sleep behavior Bela Ellsworth MD Onset: 03/17/2016 REM sleep behavior disorder Bela Ellsworth MD Onset: 03/17/2016 Obesity Bela Ellsworth MD Onset: 03/17/2016 Atrial fibrillation Onset: Chest pain Onset: H/O: anticoagulant therapy Onset: For resuscitation Onset: Gastroesophageal reflux disease Onset: Hypertensive disorder Onset: Disorder of magnesium metabolism Tameka Penaloza MD Onset: 08/17/2018 Anemia Tameka Penaloza MD Onset: 08/17/2018 Cobalamin deficiency Tameka Penaloza MD Onset: 08/17/2018 Hypothyroidism Tameka Penaloza MD Onset: 08/17/2018 Social History Type Date Description Comments Sex Unknown Tobacco Use Start: Unknown not smoking ETOH Use Denies alcohol use Tobacco Use Start: Unknown Patient has never Pt denies ever smoked smoking cigarettes, e-cigarettes, cigar, pipe, or using chewing tobacco. Recreational Drug Use Denies Drug Use Smoking Status Reviewed: 05/06/19 Patient has never Pt denies ever smoked smoking cigarettes, e-cigarettes, cigar, pipe, or using chewing tobacco. Exercise Type/Frequency Exercises sporadically Allergies, Adverse Reactions, Alerts Active Allergies Reaction Severity Comments Date Adhesives RASH Mild 07/22/2012 Jj Inhibitors patient with hyperkalemia 02/09/2019 risk Angiotensin Receptor patient with hyperkalemia 02/09/2019 Blockers risk Inactive Allergies NKDA 03/11/2017 Medications Active Medications SIG Qnty Indications Ordering Date Provider Ferahnubia feraheme infusion 510 2doses D50.9 [facility] 05/04/2019 mg 2 doses total MD Ca 510mg/17ML first infusion Solution followed by a second infusion in a week Veltassa 1 packet by mouth 30units E87.5 Tameka 05/04/2019 8.4gm every week as needed MD Ca Packet Magnesium Sulfate 2 grams iv 1 dose as 2gm [facility] 12/14/2018 needed for MD Ca 2GM/50ML Solution hypomagnesemia symptoms valid from 10/20/18 to 03/05/19 Veltassa 1 packet po q daily 7units E87.5 Tameka 11/17/2018 8.4gm prn MD Ca Packet Amiloride HCL 1 tab by mouth every 90tabs E83.42 Tameka 10/20/2018 5mg daily MD Ca Tablets Magnesium Sulfate 2 grams iv 1 dose as 2gm E83.42 Tameka 10/20/2018 needed for MD Ca 2GM/50ML Solution hypomagnesemia symptoms Valid from 10/20/18 to 03/05/19 Iron (Ferrous 1 tab by mouth twice 60tabs D50.9 [facility] 09/16/2018 Gluconate) a day with meals MD Ca 256(28Fe) mg Tablets Amlodipine Peggy Hurst Besylate C., CHECK INSPECTOR 10mg Tablets Slow-Mag 2 tab by mouth three Unknown x daily 71.5-119mg Tablets Metoprolol 3 tablet po twice Peggy Hurst Succinate ER daily( Medication C., CHECK INSPECTOR 25mg change December 2015 s/p Tablets ER 24HR Tikosyn) Tikosyn 1 by mouth twice a 180caps Ender Irizarry 500mcg day Julia Daniel, Capsules ANUSHA ACKERMAN Metformin HCL 1 by mouth twice a Unknown day 1000mg Tablets Gemfibrozil 1 by mouth twice a Unknown 600mg day Tablets Vitamin B-12 1 by mouth every day Unknown 1000mg Sublingual Xarelto 1 by mouth every day Unknown 20mg Tablets Vitamin D 1 by mouth every day Unknown 1000Iu Tablets Aspirin Ec 1 po qd Unknown 81mg Isosorbide One po bid Unknown Mononitrate 20mg Tablets Crestor One po Qhs Unknown 20mg Tablets Alprazolam One po Qhs Unknown 0.5mg Tablets Levemir Flexpen per sliding scale Unknown 100Unit/ML Solution Medications Administered in Office Medication SIG Qnty Indications Ordering Provider Date Inj, Regadenoson, 0.1 MG Ender Daniel M.D., 08/02/2012 Injection ANUSHA ACKERMAN Technetium TC 99M Ender Daniel M.D., 08/02/2012 Tetrofosmin, Per Unit Dose ANUSHA ACKERMAN Up To 40 Millicuries Injection Immunizations Description No Information Available Vital Signs Date Vital Result Comment 05/06/2019 1:35pm Height 63.5 inches 5'3.50" Weight 196.12 lb Heart Rate 66 /min BP Systolic Sitting 124 mmHg Lue regular cuff BP Diastolic Sitting 72 mmHg Lue regular cuff Respiratory Rate 12 /min O2 % BldC Oximetry 97 % BMI (Body Mass Index) 34.2 kg/m2 Neck Circumference in inches 14.5 05/04/2019 3:12pm Height 63.5 inches 5'3.50" Weight 196.00 lb Heart Rate 64 /min BP Systolic Sitting 140 mmHg reg cuff left arm BP Diastolic Sitting 79 mmHg reg cuff left arm O2 % BldC Oximetry 96 % room air BMI (Body Mass Index) 34.2 kg/m2 Results Test Date Facility Test Result H/L Range Note Laboratory test 06/03/2019 [facility] Magnesium 1.7 mg/dL Low 1.9-2.[address] [place] [address] [phone] Basic Metabolic 06/03/2019 [facility] Sodium 139 mmol/L Normal 135-[address] [place] [address] [phone] Chloride 111 mmol/L Normal 101-111 Co2 Carbon Dioxide 19 mmol/L Low 22-32 Calcium 9.6 mg/dL Normal 8.6-10.3 Potassium 5.6 mmol/L High 3.5-5.0 Anion Gap 9 mmol/L Normal 2-11 Glucose 89 mg/dL Normal 70-100 Blood Urea Nitrogen 21 mg/dL Normal 6-24 Creatinine 0.93 mg/dL Normal 0.51-0.95 BUN/Creatinine Ratio 22.6 High 8-20 Egfr Non- 59.4 >60 Egfr 71.9 >60 1 CBC Auto 06/03/2019 [facility] White Blood 7.3 10^3/uL Normal 3.5-10.[address] [place] [address] [phone] Red Blood Count 4.32 10^6/uL Normal 3.70-4.87 Hemoglobin 12.1 g/dL Normal 12.0-16.0 Hematocrit 38 % Normal 35-47 Mean Corpuscular Volume 87 fL Normal 80-97 Mean Corpuscular Hemoglobin 28 pg Normal 27-31 Mean Corpuscular HGB Conc 32 g/dL Normal 31-36 Red Cell Distribution Width 16 % High 10-15 Platelet Count 171 10^3/uL Normal 150-450 Mean Platelet Volume 10.3 fL Normal 7.4-10.4 Abs Neutrophils 3.9 10^3/uL Normal 1.5-7.7 Abs Lymphocytes 2.2 10^3/uL Normal 1.0-4.8 Abs Monocytes 0.6 10^3/uL Normal 0-0.8 Abs Eosinophils 0.6 10^3/uL Normal 0-0.6 Abs Basophils 0.1 10^3/uL Normal 0-0.2 Abs Nucleated RBC 0.0 10^3/uL Granulocyte % 53.9 % Lymphocyte % 29.6 % Monocyte % 7.9 % Eosinophil % 7.8 % Basophil % 0.8 % Nucleated Red Blood Cells % 0.1 Urinalysis Profile 06/03/2019 [facility] Urine Color Melania [address] [place] [address] [phone] Urine Appearance Turbid Urine Specific [place] 1.020 Normal 1.010-1.030 Urine pH 5.0 Normal 5-9 Urine Urobilinogen Negative Negative Urine Ketones Negative Negative Urine Protein Negative Negative Urine Leukocytes 3+ Abnormal Negative Urine Blood 2+ Abnormal Negative * * Abnormal Negative 2 Urine Nitrite Negative Negative Urine Bilirubin Negative Negative Urine Glucose Negative Negative Urine White Blood Cell 2+(11-20/hpf) Abnormal Absent Urine Red Blood Cell 1+(3-5/hpf) Abnormal Absent Urine Bacteria Absent Absent Urine Squamous Epithelial Cell Present Abnormal Absent Urine Calcium Oxalate Cryst Present Abnormal Absent Laboratory test 06/03/2019 [facility] Total Protein 22 mg/dL finding [address] [place] [address] [phone] Creatinine Random Urine 204.65 mg/dL Urine Microalbumin 06/03/2019 [facility] Ur Microalbumin 39.4 mg /L Random [address] (mg/L) [place] [address] [phone] Urine Creatinine 204.65 mg/dL Urine Microalbumin/Creatinine 19.2 Normal <31 Urine Culture And 06/03/2019 [facility] Urine Culture SEE RESULT [address] [place] [address] [phone] Laboratory test 04/14/2019 [facility] Magnesium 1.9 mg/dL Normal 1.9- [address] 2.7 [place] [address] [phone] Basic Metabolic 04/14/2019 [facility] Sodium 139 mmol/L Normal 135- Panel [address] [place] [address] [phone] Potassium 5.2 mmol/L High 3.5-5.0 Chloride 110 mmol/L Normal 101-111 Co2 Carbon Dioxide 21 mmol/L Low 22-32 Anion Gap 8 mmol/L Normal 2-11 Glucose 116 mg/dL High 70-100 Blood Urea Nitrogen 23 mg/dL Normal 6-24 Creatinine 0.93 mg/dL Normal 0.51-0.95 BUN/Creatinine Ratio 24.7 High 8-20 Calcium 9.9 mg/dL Normal 8.6-10.3 Egfr Non- 59.4 >60 Egfr 71.9 >60 5 Laboratory test 03/18/2019 [facility] Ferritin 48.8 ng/mL Normal 11-[address] [place], [place] [id number] [phone] Transferrin 359 mg/dL Normal 203-362 Iron & Iron Binding 03/18/2019 [facility] Iron 84 g/dL Normal 50-[address] [place] [address] [phone] Unsaturated Iron Binding < 488 g/dL Total Iron Binding Capacity 503 g/dL High 250-450 % Iron Saturation 17 % Normal 15-55 Urine Culture And 03/18/2019 [facility] Urine Culture SEE RESULT [address] [place], [place] [id number] [phone] Urine Microalbumin 03/18/2019 [facility] Ur Microalbumin 18.6 mg /L Random DRIVE (mg/L) [place] [address] [phone] Urine Creatinine 226.96 mg/dL Urine Microalbumin/Creatinine 8.1 Normal <31 Laboratory test 03/18/2019 [facility] Total Protein 17 mg/dL finding [place] [address] [phone] Creatinine Random Urine 226.96 mg/dL Urinalysis Profile 03/18/2019 [facility] Urine Color Yellow [address] [place] [address] [phone] Urine Appearance Clear Urine Specific [place] 1.021 Normal 1.010-1.030 Urine pH 5.0 Normal 5-9 Urine Urobilinogen Negative Negative Urine Ketones Negative Negative Urine Protein Negative Negative Urine Leukocytes 2+ Abnormal Negative Urine Blood 1+ Abnormal Negative Urine Nitrite Negative Negative Urine Bilirubin Negative Negative Urine Glucose Negative Negative Urine White Blood Cell 2+(11-20/hpf) Abnormal Absent Urine Red Blood Cell 2+(6-10/hpf) Abnormal Absent Urine Bacteria Absent Absent Urine Squamous Epithelial Cell Present Abnormal Absent Urine Calcium Oxalate Cryst Present Abnormal Absent Basic Metabolic 03/18/2019 [facility] Sodium 138 mmol/L Normal 135-[address] [place] [address] [phone] Potassium 5.5 mmol/L High 3.5-5.0 Chloride 109 mmol/L Normal 101-111 Co2 Carbon Dioxide 20 mmol/L Low 22-32 Anion Gap 9 mmol/L Normal 2-11 Glucose 124 mg/dL High 70-100 Blood Urea Nitrogen 28 mg/dL High 6-24 Creatinine 1.02 mg/dL High 0.51-0.95 BUN/Creatinine Ratio 27.5 High 8-20 Calcium 10.3 mg/dL Normal 8.6-10.3 Egfr Non- 53.4 >60 Egfr 64.6 >60 7 Laboratory test 03/18/2019 [facility] Magnesium 1.9 mg/dL Normal 1.9-2.7 [address] [place] [address] [phone] Basic Metabolic 02/09/2019 [facility] Sodium 138 mmol/L Normal 135-[address] [place] [address] [phone] Chloride 111 mmol/L Normal 101-111 Co2 Carbon Dioxide 19 mmol/L Low 22-32 Glucose 137 mg/dL High 70-100 Blood Urea Nitrogen 21 mg/dL Normal 6-24 Creatinine 0.97 mg/dL High 0.51-0.95 BUN/Creatinine Ratio 21.6 High 8-20 Calcium 10.4 mg/dL High 8.6-10.3 Egfr Non- 56.6 >60 Egfr 68.5 >60 9 Potassium 5.2 mmol/L High 3.5-5.0 Anion Gap 8 mmol/L Normal 2-11 CBC Auto 02/09/2019 [facility] White Blood 6.6 10^3/uL Normal 3.5-10.[address] [place] [address] [phone] Red Blood Count 4.37 10^6/uL Normal 3.70-4.87 Hemoglobin 12.2 g/dL Normal 12.0-16.0 Hematocrit 38 % Normal 35-47 Mean Corpuscular Volume 86 fL Normal 80-97 Mean Corpuscular Hemoglobin 28 pg Normal 27-31 Mean Corpuscular HGB Conc 33 g/dL Normal 31-36 Red Cell Distribution Width 17 % High 10.5-15 Platelet Count 209 10^3/uL Normal 150-450 Mean Platelet Volume 10.7 fL High 7.4-10.4 Abs Neutrophils 2.7 10^3/uL Normal 1.5-7.7 Abs Lymphocytes 2.3 10^3/uL Normal 1.0-4.8 Abs Monocytes 0.6 10^3/uL Normal 0-0.8 Abs Eosinophils 0.9 10^3/uL High 0-0.6 Abs Basophils 0.1 10^3/uL Normal 0-0.2 Abs Nucleated RBC 0.0 10^3/uL Granulocyte % 41.3 % Lymphocyte % 35.1 % Monocyte % 8.9 % Eosinophil % 13.8 % Basophil % 0.9 % Nucleated Red Blood Cells % 0.0 Iron & Iron Binding 02/09/2019 [facility] Iron 65 g/dL Normal 50-212 [address] [place] [address] [phone] Unsaturated Iron Binding < 468 g/dL Total Iron Binding Capacity 483 g/dL High 250-450 % Iron Saturation 13 % Low 15-55 Laboratory test 02/09/2019 [facility] Transferrin 345 mg/dL Normal 203-362 finding [address] [place] [address] [phone] Magnesium 1.9 mg/dL Normal 1.9-2.7 Basic Metabolic 01/05/2019 [facility] Potassium 5.3 mmol/L High 3.5-5.0 Panel [address] [place] [address] [phone] Sodium 140 mmol/L Normal 135-145 Chloride 110 mmol/L Normal 101-111 Co2 Carbon Dioxide 21 mmol/L Low 22-32 Anion Gap 9 mmol/L Normal 2-11 Calcium 10.3 mg/dL Normal 8.6-10.3 Glucose 149 mg/dL High 70-100 Blood Urea Nitrogen 24 mg/dL Normal 6-24 Creatinine 0.87 mg/dL Normal 0.51-0.95 BUN/Creatinine Ratio 27.6 High 8-20 Egfr Non- 64.2 >60 Egfr 77.7 >60 10 Laboratory test 01/05/2019 [facility] Magnesium 1.8 mg/dL Low 1.9-2.7 11 finding [address] [place] [address] [phone] 1 Because ethnic data is not always [...] 5 Kidney failure <15 (or dialysis) 2 *Ascorbic acid is present which may interfere with detection of blood. 3 SEE RESULT BELOW Name: NAJMA HUFF : [address]: Tameka Penaloza MD Acct: [id number] Unit: [id number] AGE: 73 Location: [facility] Re06/03/19 SEX: F Status: REG REF SPEC: [id number] IRENE: 06/03/19-[address]: Tameka Penaloza MD REQ: [id number] RECD: 06/03/19 STATUS: COMP _ SOURCE: URINE SPDESC: ORDERED: Urine Culture Procedure Result Reported Site Urine Culture Final 06/05/19- 946 ML No growth of clinically significant organisms * ML - Main Lab . END OF REPORT DEPARTMENT OF PATHOLOGY, [address] [place] [address] Suman Pleitez M.D. Director [facility] # [id number] 4 this week Because ethnic data is not always readily [...] 15-29 5 Kidney failure <15 (or dialysis) 6 SEE RESULT BELOW Name: HUFFNAJMA J : [address]: Tameka Penaloza MD Acct: [id number] Unit: [id number] AGE: 73 Location: [facility] Re03/18/19 SEX: F Status: REG REF SPEC: [id number] IRENE: 03/18/[address]: Tameka Penaloza MD REQ: [id number] RECD: 03/18/19 STATUS: COMP _ SOURCE: URINE SPDESC: ORDERED: Urine Culture Procedure Result Reported Site Urine Culture Final 03/20/19- 1028 ML No growth of clinically significant organisms * ML - Main Lab . END OF REPORT DEPARTMENT OF PATHOLOGY, [address] [place] [address] Suman Pleitez M.D. Director [facility] # [id number] 7 Because ethnic data is not always readily [...] 15-29 5 Kidney failure <15 (or dialysis) 8 [MG] affected by ICTERUS 9 Because ethnic data is not always readily [...] 15-29 5 Kidney failure <15 (or dialysis) 10 Because ethnic data is not always readily [...] 15-29 5 Kidney failure <15 (or dialysis) 11 [MG] affected by ICTERUS Procedures Date Code Description Status 05/26/2019 51868 Polysomnography Sleep Staging 4+ Parameters Completed 05/11/2019 26410 Sleep Study Unattended,HRT Rate,Oxygen Sat,Resp Completed Effort/Airflow Medical Devices Description No Information Available Encounters Type Date Location Provider Dx Diagnosis Office Visit 05/06/2019 Pulmonology And Bela Jodee, G47.9 Sleep disorder, 2:00p Sleep Services Of unspecified [facility] R53.83 Other fatigue Office Visit 05/04/2019 3:00p [facility] Nephrology Tameka E83.42 Hypomagnesemia MD Ca E11.21 Type 2 diabetes mellitus with diabetic nephropathy D64.9 Anemia, unspecified D50.9 Iron deficiency anemia, unspecified E87.5 Hyperkalemia Office Visit 02/09/2019 9:45a [facility] Ender Irizarry I48.0 Paroxysmal atrial Of Meera Daniel M.D., fibrillation FACC, FASNC I10 Essential (primary) hypertension Office Visit 01/13/2019 11:00a [facility] Nephrology Tameka E83.42 Hypomcarleen Penaloza MD I10 Essential (primary) hypertension Assessments Date Code Description Provider 05/26/2019 G47.33 Obstructive sleep apnea (adult) Bela Ellsworth MD (pediatric) 05/11/2019 R06.83 Snoring Bela Ellsworth MD 05/06/2019 G47.9 Sleep disorder, unspecified Bela Ellsworth MD 05/06/2019 R53.83 Other fatigue Bela Ellsworth MD 05/04/2019 E83.42 Hypomagnann mariemia Tameka Penaloza MD 05/04/2019 E11.21 Type 2 diabetes mellitus with Tameka Penaloza MD diabetic nephropathy 05/04/2019 D64.9 Anemia, unspecified Tameka Penaloza MD 05/04/2019 D50.9 Iron deficiency anemia, rikified Tameka Penaloza MD 05/04/2019 E87.5 Hyperkalemia Tameka Penaloza MD 02/09/2019 I48.0 Paroxysmal atrial fibrillation Ender Daniel M.D., [facility] , [facility] 02/09/2019 I10 Essential (primary) hypertension Ender Daniel M.D., [facility] , [facility] 01/13/2019 E83.42 Hypomcarleen Penaloza MD 01/13/2019 I10 Essential (primary) hypertension Tameka Penaloza MD Plan of Treatment Future Appointment(s):07/26/2019 8:30 am - Nitza Russ NP at [facility]07/14/2019 9:00 am - Tameka Penaloza MD at [facility] Utqzicmxgl45/13/2019 9:00 am - Ender Daniel M.D., [facility], [facility] at [facility]05/06/2019 - Bela Ellsworth MDG47.9 Sleep disorder, unspecifiedFollow up:2 fnypyY82.83 Other fatigue Functional Status Description No Information Available Mental Status Description No Information Available Referrals Description No Information Available
--- OUTSIDE RECORDS SUMMARY | 2019-08-20 17:32 | XMS REPORT | Continuity of Care Document ---
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 Problems Active Problems Provider Date Coronary arteriosclerosis Ender Daniel M.D., [facility], Onset: 11/18/2013 [facility] Paroxysmal atrial fibrillation Ender Daniel M.D., [facility], Onset: 2015 [facility] Paroxysmal atrial fibrillation Ender Daniel M.D., [facility], Onset: 2015 [facility] Disturbance in sleep [...] 08/17/2018 Hypothyroidism Tameka Penaloza MD Onset: 08/17/2018 Mitral valve disorder Ender Daniel M.D., [facility], Onset: 08/17/2019 [facility] Social History Type Date Description Comments Sex Unknown Tobacco Use Start: Unknown not smoking ETOH Use Denies alcohol use Tobacco Use Start: Unknown Patient has never Pt denies ever smoked smoking cigarettes, e-cigarettes, cigar, pipe, or using chewing tobacco. Recreational Drug Use Denies Drug Use Smoking Status Reviewed: 08/17/19 Patient has never Pt denies ever smoked smoking cigarettes, e-cigarettes, cigar, pipe, or using chewing tobacco. Exercise Type/Frequency Exercises sporadically Allergies, Adverse Reactions, Alerts Active Allergies Reaction Severity Comments Date Adhesives RASH Mild 07/22/2012 Jj Inhibitors patient with hyperkalemia 02/09/2019 risk Angiotensin Receptor patient with hyperkalemia 02/09/2019 Blockers risk Inactive Allergies NKDA 03/11/2017 Medications Active Medications SIG Qnty Indications Ordering Date Provider Veltassa 1 packet by mouth 30units E87.5 [facility] 05/04/2019 8.4gm every week as needed MD Ca Packet Magnesium Sulfate 2 grams iv 1 dose as 2gm [facility] 12/14/2018 needed for MD Ca 2GM/50ML Solution hypomagnesemia symptoms valid from 10/20/18 to 03/05/19 Veltassa 1 packet po q daily 7units E87.5 [facility] 11/17/2018 8.4gm prn MD Ca Packet Amiloride HCL 1 tab by mouth every 90tabs E83.42 [facility] 10/20/2018 5mg daily MD Ca Tablets Magnesium Sulfate 2 grams iv 1 dose as 2gm E83.42 [facility] 10/20/2018 needed for MD Ca 2GM/50ML Solution hypomagnesemia symptoms Valid from 10/20/18 to 03/05/19 Iron (Ferrous 1 tab by mouth twice 60tabs D50.9 [facility] 09/16/2018 Gluconate) a day with meals MD Ca 256(28Fe) mg Tablets Amlodipine 1 tab daily Peggy Hurst Besylate C., REFRIGERATOR CRATER 10mg Tablets Slow-Mag 2 tab by mouth three Unknown x daily 71.5-119mg Tablets DR Metoprolol 3 tablet po twice Peggy Hurst Succinate ER daily( Medication C., REFRIGERATOR CRATER 25mg change December 2015 s/p Tablets ER [...] Flexpen per sliding scale Unknown 100Unit/ML Solution History Medications Feraheme feraheme infusion 2doses D50.9 Tameka Penaloza, 05/04/2019 - 510mg/17ML 510 mg 2 doses 08/16/2019 Solution total first infusion followed by a second infusion in a week Medications Administered in Office Medication SIG Qnty Indications Ordering Provider Date Inj, Regadenoson, 0.1 MG Ender Daniel M.D., 08/02/2012 Injection ANUSHA ACKERMAN Technetium TC 99M Ender Daniel M.D., 08/02/2012 Tetrofosmin, Per Unit Dose ANUSHA ACKERMAN Up To 40 Millicuries Injection Immunizations Description No Information Available Vital Signs Date Vital Result Comment 08/17/2019 8:47am Height 63.5 inches 5'3.50" Weight 188.00 lb without shoes Heart Rate 66 /min BP Systolic Sitting 136 mmHg LA BP Diastolic Sitting 76 mmHg LA BP Systolic Standing 130 mmHg LA BP Diastolic Standing 72 mmHg LA BMI (Body Mass Index) 32.8 kg/m2 Ejection Fraction 40-45% Echo 04/13/18 07/14/2019 8:58am Height 63.5 inches 5'3.50" Weight 188.00 lb Heart Rate 66 /min BP Systolic Sitting 135 mmHg left arm reg cuff BP Diastolic Sitting 79 mmHg left arm reg cuff O2 % BldC Oximetry 97 % room air BMI (Body Mass Index) 32.8 kg/m2 Results Test Acquired Date Facility Test Result H/L Range Note Laboratory test 07/13/2019 [facility] Magnesium 1.7 mg/dL Low 1.9-2.7 finding [address] [place] [address] [phone] Urinalysis 07/13/2019 [facility] Urine Color Yellow Profile [address] [place] [address] [phone] Urine Appearance Cloudy Urine Specific [place] 1.016 Normal 1.010-1.030 Urine pH 5.0 Normal 5-9 Urine Urobilinogen Negative Negative Urine Ketones Negative Negative Urine Protein Negative Negative Urine Leukocytes 1+ Abnormal Negative Urine Blood 2+ Abnormal Negative Urine Nitrite Negative Negative Urine Bilirubin Negative Negative Urine Glucose Negative Negative Urine White Blood Cell 1+(6-10/hpf) Abnormal Absent Urine Red Blood Cell 3+(>10/hpf) Abnormal Absent Urine Bacteria Absent Absent Urine Squamous Epithelial Cell Present Abnormal Absent Urine Hyaline Casts Present Abnormal Absent Neph Routine 07/13/2019 [facility] Total Protein Random 25 mg/ dL [address] [facility] [place] [place] [address] [phone] Creatinine Random Urine 156.22 mg/dL Basic Metabolic 07/13/2019 [facility] Sodium 139 mmol/L Normal 135-145 Panel [address] [place] [address] [phone] Potassium 5.1 mmol/L High 3.5-5.0 Chloride 110 mmol/L Normal 101-111 Co2 Carbon Dioxide 21 mmol/L Low 22-32 Anion Gap 8 mmol/L Normal 2-11 Calcium 10.0 mg/dL Normal 8.6-10.3 Glucose 104 mg/dL High 70-100 Blood Urea Nitrogen 20 mg/dL Normal 6-24 Creatinine 0.93 mg/dL Normal 0.51-0.95 BUN/Creatinine Ratio 21.5 High 8-20 Egfr Non- 59.4 >60 Egfr 71.9 >60 1 CBC Auto 07/13/2019 [facility] White Blood 5.8 10^3/uL Normal 3.5-10.[address] [place] [address] [phone] Red Blood Count 4.48 10^6/uL Normal 3.70-4.87 Hemoglobin 13.2 g/dL Normal 12.0-16.0 Hematocrit 40 % Normal 35-47 Mean Corpuscular Volume 89 fL Normal 80-97 Mean Corpuscular Hemoglobin 29 pg Normal 27-31 Mean Corpuscular HGB Conc 33 g/dL Normal 31-36 Red Cell Distribution Width 17 % High 10-15 Platelet Count 189 10^3/uL Normal 150-450 Mean Platelet Volume 10.6 fL High 7.4-10.4 Abs Neutrophils 2.7 10^3/uL Normal 1.5-7.7 Abs Lymphocytes 2.1 10^3/uL Normal 1.0-4.8 Abs Monocytes 0.6 10^3/uL Normal 0-0.8 Abs Eosinophils 0.4 10^3/uL Normal 0-0.6 Abs Basophils 0.0 10^3/uL Normal 0-0.2 Abs Nucleated RBC 0.0 10^3/uL Granulocyte % 46.0 % Lymphocyte % 36.3 % Monocyte % 9.7 % Eosinophil % 7.1 % Basophil % 0.9 % Nucleated Red Blood Cells % 0.0 Urine Culture And 06/03/2019 [facility] Urine Culture SEE RESULT [address] [place] [address] [phone] Urine Microalbumin 06/03/2019 [facility] Ur Microalbumin 39.4 mg /L Random [address] (mg/L) [place] [address] [phone] Urine Creatinine 204.65 mg/dL Urine Microalbumin/Creatinine 19.2 Normal <31 Laboratory test 06/03/2019 [facility] Total Protein 22 mg/dL finding [address] [place] [address] [phone] Creatinine Random Urine 204.65 mg/dL Urinalysis Profile 06/03/2019 [facility] Urine Color Melania [address] [place] [address] [phone] Urine Appearance Turbid Urine Specific [place] 1.020 Normal 1.010-1.030 Urine pH 5.0 Normal 5-9 Urine Urobilinogen Negative Negative Urine Ketones Negative Negative Urine Protein Negative Negative Urine Leukocytes 3+ Abnormal Negative Urine Blood 2+ Abnormal Negative * * Abnormal Negative 3 Urine Nitrite Negative Negative Urine Bilirubin Negative Negative Urine Glucose Negative Negative Urine White Blood Cell 2+(11-20/hpf) Abnormal Absent Urine Red Blood Cell 1+(3-5/hpf) Abnormal Absent Urine Bacteria Absent Absent Urine Squamous Epithelial Cell Present Abnormal Absent Urine Calcium Oxalate Cryst Present Abnormal Absent CBC Auto 06/03/2019 [facility] White Blood 7.3 10^3/uL Normal 3.5-10.[address] [place] [address] [phone] Red Blood Count 4.32 10^6/uL Normal 3.70-4.87 [...] % Nucleated Red Blood Cells % 0.1 Basic Metabolic 06/03/2019 [facility] Sodium 139 mmol/L Normal 135-[address] [place] [address] [phone] Chloride 111 mmol/L Normal 101-111 Co2 Carbon Dioxide 19 mmol/L Low 22-32 Calcium 9.6 mg/dL Normal 8.6-10.3 Potassium 5.6 mmol/L High 3.5-5.0 Anion Gap 9 mmol/L Normal 2-11 Glucose 89 mg/dL Normal 70-100 Blood Urea Nitrogen 21 mg/dL Normal 6-24 Creatinine 0.93 mg/dL Normal 0.51-0.95 BUN/Creatinine Ratio 22.6 High 8-20 Egfr Non- 59.4 >60 Egfr 71.9 >60 4 Laboratory test 06/03/2019 [facility] Magnesium 1.7 mg/dL Low 1.9-2.7 finding [address] [place] [address] [phone] Laboratory test 04/14/2019 [facility] Magnesium 1.9 mg/dL Normal 1.9-2.7 5 finding [address] [place] [address] [phone] Basic Metabolic 04/14/2019 [facility] Sodium 139 mmol/L Normal 135-145 Panel [address] [place] [address] [phone] Potassium 5.2 mmol/L High 3.5-5.0 Chloride 110 mmol/L Normal 101-111 Co2 Carbon Dioxide 21 mmol/L Low 22-32 Anion Gap 8 mmol/L Normal 2-11 Glucose 116 mg/dL High 70-100 Blood Urea Nitrogen 23 mg/dL Normal 6-24 Creatinine 0.93 mg/dL Normal 0.51-0.95 BUN/Creatinine Ratio 24.7 High 8-20 Calcium 9.9 mg/dL Normal 8.6-10.3 Egfr Non- 59.4 >60 Egfr 71.9 >60 6 Laboratory test 03/18/2019 [facility] Magnesium 1.9 mg/dL Normal 1.9-2.7 7 finding [address] [place] [address] [phone] Basic Metabolic 03/18/2019 [facility] Sodium 138 mmol/L Normal 135-145 Panel [address] [place] [address] [phone] Potassium 5.5 mmol/L High 3.5-5.0 Chloride 109 mmol/L Normal 101-111 Co2 Carbon Dioxide 20 mmol/L Low 22-32 Anion Gap 9 mmol/L Normal 2-11 Glucose 124 mg/dL High 70-100 Blood Urea Nitrogen 28 mg/dL High 6-24 Creatinine 1.02 mg/dL High 0.51-0.95 BUN/Creatinine Ratio 27.5 High 8-20 Calcium 10.3 mg/dL Normal 8.6-10.3 Egfr Non- 53.4 >60 Egfr 64.6 >60 8 Urinalysis Profile 03/18/2019 [facility] Urine Color Yellow [address] [place], [place] [address] [phone] Urine Appearance Clear Urine Specific [place] 1.021 Normal 1.010-1.030 Urine pH 5.0 Normal [...] Oxalate Cryst Present Abnormal Absent Laboratory test 03/18/2019 [facility] Total Protein 17 mg/dL finding [address] [place] [address] [phone] Creatinine Random Urine 226.96 mg/dL Urine Microalbumin 03/18/2019 [facility] Ur Microalbumin 18.6 mg /L Random [address] (mg/L) [place], [place] [address] [phone] Urine Creatinine 226.96 mg/dL Urine Microalbumin/Creatinine 8.1 Normal <31 Urine Culture And 03/18/2019 [facility] Urine SEE RESULT [address] [place] [address] [phone] Iron & Iron 03/18/2019 [facility] Iron 84 g/dL Normal 50-21 Binding Capacity [address] [place] [address] [phone] Unsaturated Iron Binding < 488 g/dL Total Iron Binding Capacity 503 g/dL High 250-450 % Iron Saturation 17 % Normal 15-55 Laboratory test 03/18/2019 [facility] Ferritin 48.8 ng/mL Normal 11-[address] [place] [address] [phone] Transferrin 359 mg/dL Normal 203-362 1 Because ethnic data is not always [...] 5 Kidney failure <15 (or dialysis) 2 SEE RESULT BELOW Name: NAJMA HUFF : [address]: Tameka Penaloza MD Acct: [id number] Unit: [id number] AGE: 73 Location: [facility] Re06/03/19 SEX: F Status: REG REF SPEC: [id number] IRENE: 06/03/197 [facility] DR: Tameka Penaloza MD REQ: [id number] RECD: 06/03/19 STATUS: COMP _ SOURCE: URINE [facility]: ORDERED: Urine Culture Procedure Result Reported Site Urine Culture Final 06/05/19- 0947 ML No growth of clinically significant organisms * ML - Main Lab . END OF REPORT DEPARTMENT OF PATHOLOGY, [address] [place] [address] Suman Pleitez M.D. Director [facility] # [id number] 3 *Ascorbic acid is present which may interfere with detection of blood. 4 Because ethnic data is not always readily [...] 15-29 5 Kidney failure <15 (or dialysis) 5 this week 6 Because ethnic data is not always [...] 5 Kidney failure <15 (or dialysis) 7 [MG] affected by ICTERUS 8 Because ethnic data is not always readily [...] 15-29 5 Kidney failure <15 (or dialysis) 9 SEE RESULT BELOW Name: NAJMA HUFF : [address]: Tameka Penaloza MD Acct: [id number] Unit: [id number] AGE: 73 Location: [facility] Re03/18/19 SEX: F Status: REG REF SPEC: [id number] IRENE: 03/18/19-[address]: Tameka Penaloza MD REQ: [id number] RECD: 03/18/19 STATUS: COMP _ SOURCE: URINE SPDESC: ORDERED: Urine Culture Procedure Result Reported Site Urine Culture Final 03/20/19- 1028 ML No growth of clinically significant organisms * ML - Main Lab . END OF REPORT DEPARTMENT OF PATHOLOGY, [address] [place] [address] Suman Pleitez M.D. Director [facility] # [id number] Procedures Date Code Description Status 08/17/2019 51975 EKG Tracing & Interpretation Completed 05/26/2019 86303 Polysomnography Sleep Staging 4+ Parameters Completed 05/11/2019 17652 Sleep Study Unattended,HRT Rate,Oxygen Sat,Resp Completed Effort/Airflow Medical Devices Description No Information Available Encounters Type Date Location Provider Dx Diagnosis Office Visit 07/14/2019 [facility] Tameka Penaloza, E83.42 Hypomagnesemia 9:00a E87.5 Hyperkalemia D50.9 Iron deficiency anemia, unspecified R31.9 Hematuria, unspecified Z79.84 retirement (current) use of oral 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 E11.21 Type 2 diabetes mellitus with diabetic nephropathy Office Visit 05/06/2019 2:00p [facility] G47.9 Sleep disorder, [facility] unspecified [facility] R53.83 Other fatigue Office Visit 05/04/2019 3:00p [facility] Tameka E83.42 Hypomagnbernadine Penaloza MD E11.21 Type 2 diabetes mellitus with diabetic nephropathy D64.9 Anemia, unspecified D50.9 Iron deficiency anemia, unspecified E87.5 Hyperkalemia Assessments Date Code Description Provider 08/17/2019 I34.0 Nonrheumatic mitral (valve) Ender Daniel M.D., FACC, insufficiency [facility] 08/17/2019 I10 Essential (primary) hypertension Ender Daniel M.D., FACC , FASNC 07/14/2019 E83.42 Hypomagnesemia Tameka Penaloza MD 07/14/2019 E87.5 Hyperkalemia Tameka Penaloza MD 07/14/2019 D50.9 Iron deficiency anemia, unspecified Tameka Penaloza MD 07/14/2019 R31.9 Hematuria, unspecified Tameka Penaloza MD 07/14/2019 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 of oral Tameka Penaloza MD 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 07/14/2019 E11.21 Type 2 diabetes mellitus with Tameka Penaloza MD diabetic nephropathy 05/26/2019 G47.33 Obstructive sleep apnea (adult) Bela Ellsworth MD (pediatric) 05/11/2019 R06.83 Snoring Bela Ellsworth MD 05/06/2019 G47.9 Sleep disorder, unspecified Bela Ellsworth MD 05/06/2019 R53.83 Other fatigue Bela Ellsworth MD 05/04/2019 E83.42 Hypomagnesemia Tameka Penaloza MD 05/04/2019 E11.21 Type 2 diabetes mellitus with Tameka Penaloza MD diabetic nephropathy 05/04/2019 D64.9 Anemia, unspecified Tameka Penaloza MD 05/04/2019 D50.9 Iron deficiency anemia, rikified Tameka Penaloza MD 05/04/2019 E87.5 Hyperkalemia Tameka Penaloza MD Plan of Treatment Future Appointment(s):09/16/2019 1:00 pm - Nitza Russ NP at [facility]10/14/2019 8:00 am - Malinda Clemens MD at [facility] Lqsvvivdzr53/13/2019 - Ender Daniel M.D., [facility], [id number] Nonrheumatic mitral (valve) insufficiencyNew Orders:Echocardiogram, Ordered: Comments:As discussed, I feel your heart is doing well. Please continue to follow your magnesium level with the kidney specialist and follow up your sleep evaluation with your sleep specialist. Please exercise.Follow up:one year after echoI10 Essential (primary) hypertensionComments:Please continue to follow your blood pressure with your PCP and it appears fairly well controlled today. Functional Status Description No Information Available Mental Status Description No Information Available Referrals Description No Information Available
--- OUTSIDE RECORDS SUMMARY | 2019-08-20 17:32 | XMS REPORT | Continuity of Care Document ---
:1945 External Reference #:[id number] Author Name Tameka Penaloza MD (transmitted by agent of provider Lisa Escobar) Address [address] [place] [address] [place] [id number] Care Team Providers Name Role Phone Herminio Montgomery MD - Internal Care Team Information Weight Training Instructor Medicine Peggy Hurst, GREENHOUSE STAFF - Family Care Team Information Weight Training Instructor [phone] Problems Active Problems Provider Date Coronary arteriosclerosis Ender Daniel M.D., [facility], Onset: 11/18/2013 FASNC Paroxysmal atrial fibrillation Ender Daniel M.D., [facility], Onset: 2015 FASNC Paroxysmal atrial fibrillation Ender Daniel M.D., [facility], Onset: 2015 FASNC Disturbance in sleep [...] Use Denies Drug Use Smoking Status Reviewed: 07/14/19 Patient has never Pt denies ever smoked [...] Provider Ferahnubia feraheme infusion 510 2doses D50.9 [facility] 05/04/2019 mg 2 doses total MD Ca 510mg/17ML first infusion Solution followed by a second infusion in a week Veltassa 1 packet by mouth 30units E87.5 Tameka 05/04/2019 8.4gm every week as needed MD Ca Packet Magnesium Sulfate 2 grams iv 1 dose as 2gm [facility] 12/14/2018 needed for MD Ca [...] 1 tab by mouth twice 60tabs D50.9 [facility] 09/16/2018 Gluconate) a day with meals MD Ca 256(28Fe) mg Tablets Amlodipine Peggy Hurst Besylate C., [employer]AFF 10mg Tablets Slow-Mag 2 tab by mouth three Unknown x daily 71.5-119mg Tablets Metoprolol 3 tablet po twice Peggy Hurst Succinate ER daily( Medication C., [employer]ENHOUSE STAFF 25mg change December 2015 s/p Tablets ER [...] Available Vital Signs Date Vital Result Comment 07/14/2019 8:58am Height 63.5 inches 5'3.50" Weight 188.00 lb Heart Rate 66 /min BP Systolic Sitting 135 mmHg left arm reg cuff BP Diastolic Sitting 79 mmHg left arm reg cuff O2 % BldC Oximetry 97 % room air BMI (Body Mass Index) 32.8 kg/m2 05/06/2019 1:35pm Height 63.5 inches 5'3.50" Weight 196.12 lb Heart Rate 66 /min BP Systolic Sitting 124 mmHg Lue regular cuff BP Diastolic Sitting 72 mmHg Lue regular cuff Respiratory Rate 12 /min O2 % BldC Oximetry 97 % BMI (Body Mass Index) 34.2 kg/m2 Neck Circumference in inches 14.5 Results Test Date Facility Test Result H/L Range Note Neph Routine 07/13/2019 [facility] Total Protein 25 mg/dL [address] [place] [address] [phone] Creatinine Random Urine 156.22 mg/dL CBC Auto 07/13/2019 [facility] White Blood 5.8 10^3/uL Normal 3.5-10.[address] [place] [address] [phone] Red Blood Count 4.48 10^6/uL Normal 3.70-4.87 [...] % Nucleated Red Blood Cells % 0.0 Basic Metabolic 07/13/2019 [facility] Sodium 139 mmol/L Normal 135-[address] [place] [address] [phone] Potassium 5.1 mmol/L High 3.5-5.0 Chloride 110 mmol/L Normal 101-111 Co2 Carbon Dioxide 21 mmol/L Low 22-32 Anion Gap 8 mmol/L Normal 2-11 Calcium 10.0 mg/dL Normal 8.6-10.3 Glucose 104 mg/dL High 70-100 Blood Urea Nitrogen 20 mg/dL Normal 6-24 Creatinine 0.93 mg/dL Normal 0.51-0.95 BUN/Creatinine Ratio 21.5 High 8-20 Egfr Non- 59.4 >60 Egfr 71.9 >60 1 Urinalysis Profile 07/13/2019 [facility] Urine Color Yellow [address] [place] [address] [phone] Urine Appearance Cloudy Urine Specific [place] 1.016 Normal 1.010-1.030 Urine pH 5.0 Normal [...] Absent Urine Hyaline Casts Present Abnormal Absent Laboratory test 07/13/2019 [facility] Magnesium 1.7 mg/dL Low 1.9-2.7 finding [address] [place] [address] [phone] Laboratory test 06/03/2019 [facility] Magnesium 1.7 mg/dL Low 1.9-2.[address] [place] [address] [phone] Basic Metabolic 06/03/2019 [facility] Sodium 139 mmol/L Normal 135-[address] [place] [address] [phone] Chloride 111 mmol/L Normal 101-111 Co2 Carbon Dioxide 19 mmol/L Low 22-32 Calcium 9.6 mg/dL Normal 8.6-10.3 Potassium 5.6 mmol/L High 3.5-5.0 Anion Gap 9 mmol/L Normal 2-11 Glucose 89 mg/dL Normal 70-100 Blood Urea Nitrogen 21 mg/dL Normal 6-24 Creatinine 0.93 mg/dL Normal 0.51-0.95 BUN/Creatinine Ratio 22.6 High 8-20 Egfr Non- 59.4 >60 Egfr 71.9 >60 2 CBC Auto 06/03/2019 [facility] White Blood 7.3 10^3/uL Normal 3.5-10.8 Diff [address] [facility] [place] [address] [phone] Red Blood Count 4.32 10^6/uL Normal 3.70-4.87 [...] Blood Cells % 0.1 Urinalysis Profile 06/03/2019 [facility] Urine Color Melania [address] [place] [address] [phone] Urine Appearance Turbid Urine Specific [place] 1.020 Normal 1.010-1.030 Urine pH 5.0 Normal [...] Cryst Present Abnormal Absent Laboratory test 06/03/2019 [facility] Total Protein 22 mg/dL finding [address] [place] [address] [phone] Creatinine Random Urine 204.65 mg/dL Urine Microalbumin 06/03/2019 [facility] Ur Microalbumin 39.4 mg /L Random [address] (mg/L) [place] [address] [phone] Urine Creatinine 204.65 mg/dL Urine Microalbumin/Creatinine 19.2 Normal <31 Urine Culture And 06/03/2019 [facility] Urine SEE RESULT [address] [place] [address] [phone] Basic Metabolic 04/14/2019 [facility] Sodium 139 mmol/L Normal 135-[address] [place] [address] [phone] Potassium 5.2 mmol/L High 3.5-5.0 Chloride 110 mmol/L Normal 101-111 Co2 Carbon Dioxide 21 mmol/L Low 22-32 Anion Gap 8 mmol/L Normal 2-11 Glucose 116 mg/dL High 70-100 Blood Urea Nitrogen 23 mg/dL Normal 6-24 Creatinine 0.93 mg/dL Normal 0.51-0.95 BUN/Creatinine Ratio 24.7 High 8-20 Calcium 9.9 mg/dL Normal 8.6-10.3 Egfr Non- 59.4 >60 Egfr 71.9 >60 5 Laboratory test 04/14/2019 [facility] Magnesium 1.9 mg/dL Normal 1.9-2.7 [address] [place] [address] [phone] Laboratory test 03/18/2019 [facility] Magnesium 1.9 mg/dL Normal 1.9-2.7 7 finding [address] [place] [address] [phone] Basic Metabolic 03/18/2019 [facility] Sodium 138 mmol/L Normal 135-145 Panel [address] [place] [address] [phone] Potassium 5.5 mmol/L High 3.5-5.0 Chloride 109 mmol/L Normal 101-111 Co2 Carbon Dioxide 20 mmol/L Low 22-32 Anion Gap 9 mmol/L Normal 2-11 Glucose 124 mg/dL High 70-100 Blood Urea Nitrogen 28 mg/dL High 6-24 Creatinine 1.02 mg/dL High 0.51-0.95 BUN/Creatinine Ratio 27.5 High 8-20 Calcium 10.3 mg/dL Normal 8.6-10.3 Egfr Non- 53.4 >60 Egfr 64.6 >60 8 Urinalysis Profile 03/18/2019 [facility] Urine Color Yellow [address] [place] [address] [phone] Urine Appearance Clear Urine Specific [place] 1.021 Normal 1.010-1.030 Urine pH 5.0 Normal [...] Cryst Present Abnormal Absent Laboratory test 03/18/2019 [facility] Total Protein 17 mg/dL finding [address] [place] [address] [phone] Creatinine Random Urine 226.96 mg/dL Urine Microalbumin 03/18/2019 [facility] Ur Microalbumin 18.6 mg /L Random [address] (mg/L) [place] [address] [phone] Urine Creatinine 226.96 mg/dL Urine Microalbumin/Creatinine 8.1 Normal <31 Urine Culture And 03/18/2019 [facility] Urine SEE RESULT [address] Culture BELOW [place], [place] [id number] [phone] Iron & Iron 03/18/2019 [facility] Iron 84 g/dL Normal 50-[address] [place] [address] [phone] Unsaturated Iron Binding < 488 g/dL Total Iron Binding Capacity 503 g/dL High 250-450 % Iron Saturation 17 % Normal 15-55 Laboratory test 03/18/2019 [facility] Ferritin 48.8 ng/mL Normal 11-[address] [place], [place] [address] [phone] Transferrin 359 mg/dL Normal 203-362 Basic Metabolic 02/09/2019 [facility] Sodium 138 mmol/L Normal 135-[address] [place] [address] [phone] Chloride 111 mmol/L Normal 101-111 Co2 Carbon Dioxide 19 mmol/L Low 22-32 Glucose 137 mg/dL High 70-100 Blood Urea Nitrogen 21 mg/dL Normal 6-24 Creatinine 0.97 mg/dL High 0.51-0.95 BUN/Creatinine Ratio 21.6 High 8-20 Calcium 10.4 mg/dL High 8.6-10.3 Egfr Non- 56.6 >60 Egfr 68.5 >60 10 Potassium 5.2 mmol/L High 3.5-5.0 Anion Gap 8 mmol/L Normal 2-11 CBC Auto 02/09/2019 [facility] White Blood 6.6 10^3/uL Normal 3.5-10.[address] [place] [address] [phone] Red Blood Count 4.37 10^6/uL Normal 3.70-4.87 [...] % 0.0 Iron & Iron Binding 02/09/2019 [facility] Iron 65 g/dL Normal 50-212 Capacity [address] [place] [address] [phone] Unsaturated Iron Binding < 468 g/dL Total Iron Binding Capacity 483 g/dL High 250-450 % Iron Saturation 13 % Low 15-55 Laboratory test 02/09/2019 [facility] Transferrin 345 mg/dL Normal 203-362 finding [address] [place] [address] [phone] Magnesium 1.9 mg/dL Normal 1.9-2.7 1 Because ethnic data is not always [...] 5 Kidney failure <15 (or dialysis) 2 Because ethnic data is not always readily [...] 15-29 5 Kidney failure <15 (or dialysis) 3 *Ascorbic acid is present which may interfere with detection of blood. 4 SEE RESULT BELOW Name: NAJMA HUFF : [address]: Tameka Penaloza MD Acct: [id number] Unit: [id number] AGE: 73 Location: [facility] Re06/03/19 SEX: F Status: REG REF SPEC: [id number] IRENE: 06/03/19-[address]: Tameka Penaloza MD REQ: [id number] RECD: 06/03/19-1021 STATUS: COMP _ SOURCE: URINE SPDESC: ORDERED: Urine Culture Procedure Result Reported Site Urine Culture Final 06/05/19- 4137 ML No growth of clinically significant organisms * ML - Main Lab . END OF REPORT DEPARTMENT OF PATHOLOGY, [address] [place] [address] Suman Pleitez M.D. 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 END OF REPORT DEPARTMENT OF PATHOLOGY, [address] [place] [address] Suman Pleitez M.D. Director [facility] # [id number] 10 Because ethnic data is not always [...] 15-29 5 Kidney failure <15 (or dialysis) Procedures Date Code Description Status 05/26/2019 25274 Polysomnography Sleep Staging 4+ Parameters Completed 05/11/2019 97777 Sleep Study Unattended,HRT Rate,Oxygen Sat,Resp Completed Effort/Airflow Medical Devices Description No Information Available Encounters Type Date Location Provider Dx Diagnosis Office Visit 05/06/2019 Pulmonology And Bela Jodee, G47.9 Sleep disorder, 2:00p [facility] R53.83 Other fatigue Office Visit 05/04/2019 3:00p [facility] Nephrology Tameka E83.42 Hypomagnesemia MD Ca E11.21 Type 2 diabetes mellitus with diabetic nephropathy D64.9 Anemia, unspecified D50.9 Iron deficiency anemia, unspecified E87.5 Hyperkalemia Office Visit 02/09/2019 9:45a [facility] Ender Irizarry I48.0 Paroxysmal atrial Of Meera Daniel M.D., fibrillation FACC, FASNC I10 Essential (primary) hypertension Office Visit 01/13/2019 11:00a [facility] Nephrology Tameka E83.42 Hypomagnbernadine Penaloza MD I10 Essential (primary) hypertension Assessments Date Code Description Provider 07/14/2019 E83.42 Hypomagnbernadine Penaloza MD 07/14/2019 D50.9 Iron deficiency anemia, unspecified Tameka Penaloza MD 07/14/2019 E11.21 Type 2 diabetes mellitus with Tameka Penaloza MD diabetic nephropathy 07/14/2019 E87.5 Hyperkalemia Tameka Penaloza MD 07/14/2019 R31.9 Hematuria, unspecified Tameka Penaloza MD 05/26/2019 G47.33 Obstructive sleep apnea (adult) Bela Ellsworth MD (pediatric) 05/11/2019 R06.83 Snoring Bela Ellsworth MD 05/06/2019 G47.9 Sleep disorder, unspecified Bela Ellsworth MD 05/06/2019 R53.83 Other fatigue Bela Ellsworth MD 05/04/2019 E83.42 Lamontagnbernadine Penaloza MD 05/04/2019 E11.21 Type 2 diabetes mellitus with Tameka Penaloza MD diabetic nephropathy 05/04/2019 D64.9 Anemia, rikified Tameka Penaloza MD 05/04/2019 D50.9 Iron deficiency anemia, rikified Tameka Penaloza MD 05/04/2019 E87.5 Hyperkanaman Penaloza MD 02/09/2019 I48.0 Paroxysmal atrial fibrillation Ender Daniel M.D., [facility] , [facility] 02/09/2019 I10 Essential (primary) hypertension Ender Daniel M.D., [facility] , [facility] 01/13/2019 E83.42 Samreen Penaloza MD 01/13/2019 I10 Essential (primary) hypertension Tameka Penaloza MD Plan of Treatment Future Appointment(s):10/14/2019 8:00 am - Malinda Clemens MD at [facility] Zskigvajbb26 /22/2019 8:30 am - Nitza Russ NP at [facility]08/17/2019 9:00 am - Ender Daniel M.D., FACC, FASMS at [facility]07/14/2019 - Tameka Penaloza MDE83.42 HvpraprgvccixgU54.9 Iron deficiency anemia, saowwmgrulxR37.21 Type 2 diabetes mellitus with diabetic bqrlyriauzqW60.5 VxnayntoisguX08.9 Hematuria, unspecified Functional Status Description No Information Available Mental Status Description No Information Available Referrals Description No Information Available
[2019-08-20 18:44] VITALS: BP 139/78
--- NOTE | 2019-08-20 19:53 | UC ---
Complaint Female HPI - HPI Summary HPI Summary: Patient is a 73yo female presenting with for lower abdominal pressure, hematuria, and decreased appetite since this morning. Patient noticed intermittent lower abdominal cramping and mild R sided lower back maite. Notes back pain has improved but states constant lower abd pressure now. Denies burning, frequency, and urgency. Notes blood tinged urine, not gross hematuria. Patient states she has a history of kidney infections in the past. Denies fever and chills. Denies n/v/d. Denies radiating pain. Denies changes in BMs. Patient states she has kidney problem that causes her kidneys to excrete too much magnesium but that she sees a strategic partner development manager for it. Notes normal kidney function and that her strategic partner development manager says "her numbers are really good." - History Of Current Complaint Chief Complaint: UCGU Stated Complaint: URINARY COMPLAINT Hx Obtained From: Patient Onset/Duration: Gradual Onset, Lasting Days Severity Currently: Moderate Pain Intensity: 6 Pain Scale Used: 0-10 Numeric - Allergies/Home Medications Allergies/Adverse Reactions: Allergies Allergy/AdvReac Type Severity Reaction Status Date / Time adhesive tape Allergy Intermediate Rash Verified 08/20/19 18:44 PMH/Surg Hx/FS Hx/Imm Hx Endocrine History: Diabetes Cardiovascular History: Hypertension, Atrial Fibrillation GI/ History: Gastroesophageal Reflux - Surgical History Surgical History: Yes Surgery Procedure, Year, and Place: hysterectomy, cholecysytecomy, 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 Negative: Fever , Chills Respiratory: Positive: Negative Cardiovascular: Positive: Negative Gastrointestinal: Positive: Abdominal Pain - lower abdominal pressure. Negative : Vomiting, Diarrhea, Nausea Genitourinary: Positive: Hematuria. Negative: Dysuria, Frequency, Urgency, Vaginal/Penile Burning, Vaginal/Penile Itching, Vaginal/Penile Pain, Vaginal/ Penile Tenderness, Abnormal Bleeding Musculoskeletal: Positive: Negative Neurological: Positive: Negative Physical Exam Triage Information Reviewed: Yes Appearance: Well-Appearing, No Pain Distress, Well-Nourished Vital Signs: Initial Vital Signs Temp 98.1 F 08/20/19 18:40 Pulse 74 08/20/19 18:40 Resp 16 08/20/19 18:40 BP 139/78 08/20/19 18:40 Pulse Ox 98 08/20/19 18:40 Lab Results 08/20/19 Range/Units 19:29 POC Urine Color [place] POC Urine Clarity Cloudy POC Urine pH 5.5 (5-9) POC Ur Specif Wisdom <= 1.005 L (1.010-1.030) POC Urine Protein 1+ A (Negative) POC Ur Glucose (UA) Negative (Negative) POC Urine Ketones Negative (Negative) POC Urine Blood 3+ A (Negative) POC Urine Nitrite Negative (Negative) POC Urine Bilirubin Negative (Negative) POC Urine Urobilinogen 0.2 (Negative) POC U Leukocyte Esteras Trace A (Negative) Vital Signs Reviewed: Yes Eyes: Positive: Conjunctiva Clear ENT: Positive: Hearing grossly normal Neck exam: Normal Neck: Positive: Supple Respiratory Exam: Normal Respiratory: Positive: Lungs clear, Normal breath sounds, No respiratory distress Cardiovascular Exam: Other - irregularly irregular rhythm Cardiovascular: Negative: Tachycardia Abdominal Exam: Normal Abdomen Description: Positive: Nontender, Soft. Negative: CVA Tenderness (R), CVA Tenderness (L), Distended, Guarding, McBurney's Point Tenderness Bowel Sounds: Positive: Present Neurological: Positive: Alert Psychological: Positive: Age Appropriate Behavior Skin Exam: Normal Complaint Female Dx - Course Course Of Treatment: I treated with Keflex for UTI symptoms and UA positive for blood and trace leuks. Patient's VS normal and in no pain distress. Instructed to follow up with pcp and/or strategic partner development manager early next week for re-check of symptoms given patient's history of kidney disorder. Instructed to go to ED if symptoms worsen before she is able to follow up. Patient voiced understanding and agreed with treatment plan. - Differential Dx/Diagnosis Provider Diagnosis: UTI (urinary tract infection) Discharge ED - Sign-Out/Discharge Documenting (check all that apply): Patient Departure All imaging exams completed and their final reports reviewed: No Studies - Discharge Plan Condition: Stable Disposition: HOME Prescriptions: Cephalexin CAP* [Keflex CAP*] 500 mg PO BID #13 cap Patient Education Materials: Urinary Tract Infection in Older Adults (ED) Referrals: Peggy Hurst [Primary Care Provider] - 3 Days Additional Instructions: As discussed, take Keflex for treatment of a urinary tract infection. You received the first dose here at the urgent care. It is important that you increase your fluid intake as well. Follow up with your primary care physician within the next 3 days for a re- check. You may also follow up with your strategic partner development manager. Go to the emergency room if you experience new or worsening symptoms before you are able to follow up. - Billing Disposition and Condition Condition: STABLE Disposition: Home
[2019-08-20] MEDS ORDERED: Cephalexin CAP* 500 MG PO ONE (20:06)
== END 2019-08-20 20:19 | disposition home or self-care (01) ==
LOC: UCCORT 17:22
DX: N39.0 Urinary tract infection, site not specified (principal); E11.9 Type 2 diabetes mellitus without complications; I10 Essential (primary) hypertension; R31.9 Hematuria, unspecified; Z91.09 Other allergy status, other than to drugs and biological substances
CPT/HCPCS: 81003; 87086; 99212; A9270-GY; G0463

== ENCOUNTER 2019-09-15 10:14 | Inpatient (IN) | payer MEDICARE ==
[2019-09-15] MEDS ORDERED: NS 0.9% 1000 ML** 1,000 ML IV ONE (10:31)
--- NOTE | 2019-09-15 10:34 | ED ---
Back Pain - HPI Summary HPI Summary: This pt is a 74 y/o [place] [facility] [place] sided back pain since 0200 today, now localized to her right flank. Pt reports she woke up at 0200 this morning with right sided lower back pain described as a sharp pain. She states she thought her pain was due to her position in bed and tried to get comfortable but couldn't. She then sat on her chair until 0500 and began to feel nauseous secondary to pain. Pt states that at some point after 0500 her pain localized to her right flank. Additionally reports symptoms of chills and hematuria (for the past 1 month). Denies fever, vomiting, diarrhea, dysuria, chest pain, SOB. EMS administered 15 mg of Toradol with moderate relief. In January 2019 pt was dx with a UTI where she also had hematuria. PSHx: cholecystectomy and hysterectomy. - History of Current Complaint Stated Complaint: BACK PAIN PER EMS Time Seen by Provider: 09/15/19 10:19 Hx Obtained From: Patient Onset/Duration: Lasting Hours, Still Present Onset/Duration: Started Hours Ago, Still Present Timing: Lasting Hours Back Pain Location: Is Discrete @ - right lower back and right flank pain Severity Currently: Mild Pain Intensity: 1 Pain Scale Used: 0-10 Numeric Character: Sharp Aggravating Symptom(s): Nothing Alleviating Symptom(s): Nothing Associated Signs And Symptoms: Positive: Flank Pain - right. Negative: Fever, Weakness, Numbness, Tingling, Abdominal Pain, Bladder Incontinence, Bowel Incontinence - Allergies/Home Medications Allergies/Adverse Reactions: Allergies Allergy/AdvReac Type Severity Reaction Status Date / Time adhesive tape Allergy Intermediate Rash Verified 08/20/19 18:44 Home Medications: Home Medications Ferrous Gluconate TAB* [Fergon TAB*] 27 mg PO DAILY 09/15/19 [History Confirmed 09/15/19] Metoprolol Succinate XL TAB* [Toprol XL TAB*] 75 mg PO BID 09/15/19 [History Confirmed 09/15/19] PMH/Surg Hx/FS Hx/Imm Hx Endocrine/Hematology History: Reports: Hx Diabetes - insulin dependent, Hx Anemia Denies: Hx Unexplained Bleeding Cardiovascular History: Reports: Hx Angina, Hx Angioplasty, Hx Cardiomegaly, Hx Congestive Heart Failure, Hx Coronary Artery Disease, Hx Hypercholesterolemia, Hx Hypertension, Hx Myocardial Infarction, Other Cardiovascular Problems/ Disorders - LBBB Denies: Hx Auto Implanted Cardiovert Defib, Hx Cardiac Arrest, Hx Congenital Heart Disease, Hx Deep Vein Thrombosis, Hx Embolism, Hx Hypotension, Hx Pacemaker/ICD, Hx Peripheral Vascular Disease, Hx Rheumatic Fever, Hx Syncope, Hx Valvular Heart Disease Respiratory History: Reports: Hx Asthma GI History: Reports: Hx Gastroesophageal Reflux Disease, Hx Hiatal Hernia, Other GI Disorders - hemorrhoids History: Reports: Other Problems/Disorders - UTI Denies: Hx Renal Disease Musculoskeletal History: Reports: Hx Arthritis Sensory History: Reports: Hx Cataracts - both Denies: Hx Contacts or Glasses, Hx Hearing Aid Opthamlomology History: Reports: Hx Cataracts - both Denies: Hx Contacts or Glasses Psychiatric History: Reports: Hx Anxiety - one anxiety attack 2004 - Cancer History Hx Chemotherapy: No - Surgical History Surgical History: Yes Surgery Procedure, Year, and Place: hysterectomy, cholecysytecomy, tumor removed from between toes, appendectomy Hx Anesthesia Reactions: No - Family History Known Family History: Positive: Cardiac Disease - Bypass, AAA, [place], CAD, Diabetes - GRANDMOTHER, Other - Dementia - Social History Alcohol Use: None Hx Substance Use: No Substance Use Type: Reports: None Hx Tobacco Use: No Smoking Status (MU): Never Smoked Tobacco Review of Systems Positive: Chills. Negative: Fever Negative: Chest Pain Negative: Shortness Of Breath Positive: Nausea. Negative: Vomiting, Diarrhea Positive: flank pain - right, hematuria. Negative: dysuria Musculoskeletal: Other - POSITIVE: right lower back pain All Other Systems Reviewed And Are Negative: Yes Physical Exam - Summary Physical Exam Summary: VITAL SIGNS: Reviewed. GENERAL: Patient is a well-developed and nourished female who is lying comfortable in the stretcher. Patient is not in any acute respiratory distress. HEAD AND FACE: No signs of trauma. No ecchymosis, hematomas or skull depressions. No sinus tenderness. EYES: PERRLA, EOMI x 2, No injected conjunctiva, no nystagmus. EARS: Hearing grossly intact. Ear canals and tympanic membranes are within normal limits. MOUTH: Oropharynx within normal limits. NECK: Supple, trachea is midline, no adenopathy, no JVD, no carotid bruit, no c- spine tenderness, neck with full ROM. CHEST: Symmetric, no tenderness at palpation. LUNGS: Clear to auscultation bilaterally. No wheezing or crackles. CVS: Regular rate and rhythm, S1 and S2 present, no murmurs or gallops appreciated. ABDOMEN: Soft, non-tender. No signs of distention. No rebound, no guarding, and no masses palpated. Bowel sounds are normal. Right flank tenderness. MSK: FROM in all major joints, no edema, no cyanosis or clubbing. Mild right CVA tenderness. NEURO: Alert and oriented x 3. No acute neurological deficits. Speech is normal and follows commands. SKIN: Dry and warm. Triage Information Reviewed: Yes Vital Signs On Initial Exam: Initial Vitals Temp Pulse Resp BP Pulse Ox 97.8 F 74 18 156/102 96 09/15/19 10:20 09/15/19 10:20 09/15/19 10:20 09/15/19 10:20 09/15/19 10:20 Vital Signs Reviewed: Yes Procedures - Sedation Patient Received Moderate/Deep Sedation with Procedure: No Diagnostics - Laboratory Result Diagrams: 09/15/19 10:37 09/15/19 15:38 Lab Statement: Any lab studies that have been ordered have been reviewed, and results considered in the medical decision making process. - CT Abdomen/Pelvis CT CT Interpretation Completed By: Radiologist Summary of CT Findings: IMPRESSION: Marked right hydronephrosis with a 1.4 x 1.0 cm calculus in the right proximal ureter just distal to the ureteropelvic junction. Other nonobstructing caluli is noted in the right renal calyx. The left kidney shows no hydronephrosis. Patient is status post cholecystectomy. Dr. Buchanan has reviewed this report. - EKG 11:27 Cardiac Rate: Bradycardia - at 57 bpm EKG Rhythm: Sinus Bradycardia EKG Comparison: No Significant Change - similar to prior EKG on 01/22/19. Summary of EKG Findings: EKG shows sinus bradycardia at a rate of [address] elevations. Similar to prior EKG on 01/22/19. Back Pain Course/Dx - Course Assessment/Plan: This pt is a 74 y/o female presenting to [facility] c/o right sided back pain since 0200 today, now localized to her right flank. Pt reports she woke up at 0200 this morning with right sided lower back pain described as a sharp pain. She states she thought her pain was due to her position in bed and tried to get comfortable but couldn't. She then sat on her chair until 0500 and began to feel nauseous secondary to pain. Pt states that at some point after 0500 her pain localized to her right flank. Additionally reports symptoms of chills and hematuria (for the past 1 month). Denies fever, vomiting, diarrhea, dysuria, chest pain, SOB. EMS administered 15 mg of Toradol with moderate relief. In January 2019 pt was dx with a UTI where she also had hematuria. PSHx : cholecystectomy and hysterectomy. Abdominal and pelvic CT IMPRESSION: Marked right hydronephrosis with a 1.4 x 1.0 cm calculus in the right proximal ureter just distal to the ureteropelvic junction. Other nonobstructing calculi is noted in the right renal calyx. The left kidney shows no hydronephrosis. Patient is status post cholecystectomy. Patient was given IV fluids and morphine for the pain. The patient given Toradol by EMS. I discussed the case with Dr. Manuel from urology and he will take the patient to the OR. At this time I discussed my physical exam and findings with Dr. Jenkins, from the hospitalist services, who accepted the patient for admission. The patient is hemodynamically stable. - Diagnoses Provider Diagnoses: Ureterolithiasis, Renal colic - Provider Notifications Discussed Care Of Patient With: Jose Juan Manuel Time Discussed With Above Provider: 12:36 Instructed by Provider To: Other - Discussed the case with Dr. Manuel, urologist, who will call back. [13:04] Dr. Manuel reports he will take the patient to the OR and recommends admission to the hospitalist. [13:09] Discussed with Dr. Jenkins, hospitalist, who accepted the pt for admission. Discharge ED - Sign-Out/Discharge Documenting (check all that apply): Patient Departure - [place] [facility] [place] Plan Condition: Stable Disposition: ADMITTED TO [facility] - Billing Disposition and Condition Condition: STABLE Disposition: Admitted to [facility] - Attestation Statements Document Initiated by Scribe: Yes Documenting Scribe: Lluvia Bocanegra Provider For Whom Charoe is Documenting (Include Credential): Evert Buchanan MD Scribe Attestation: Lluvia Joel, scribed for Evert Buchanan MD on 09/15/19 at 2124. Scribe Documentation Reviewed: Yes Provider Attestation: The documentation as recorded by the scribe, Lluvia Bocanegra accurately reflects the service I personally performed and the decisions made by me, Evert Buchanan MD Status of Scribe Document: Viewed
[2019-09-15 10:48] LABS: ABS Basophils 0.1 10^3/ul (0-0.2); ABS Eosinophils 0.3 10^3/ul (0-0.6); ABS Lymphocytes 1.2 10^3/ul (1.0-4.8); ABS Monocytes 0.4 10^3/ul (0-0.8); ABS Neutrophils 6.6 10^3/ul (1.5-7.7); Eosinophil % 3.2 %; Hematocrit 39 % (35-47); Hemoglobin 12.9 g/dL (12.0-16.0); Lymphocyte % 14.3 %; Mean Corpuscular HGB Conc 33 g/dL (31-36); Mean Corpuscular Hemoglobin 30 pg (27-31); Mean Corpuscular Volume 89 fL (80-97); Mean Platelet Volume 9.7 fL (7.4-10.4); Nucleated Red Blood Cells % 0.1; Platelet Count 287 10^3/uL (150-450); Red Blood Count 4.39 10^6 /uL (3.70-4.87); Red Cell Distribution Width 15 % (10-15); White Blood Count 8.6 10^3/uL (3.5-10.8)
--- OUTSIDE RECORDS SUMMARY | 2019-09-15 10:49 | XMS REPORT | Continuity of Care Document ---
:1945 External Reference #:[id number] Author Name Festus Rodriguez PA Address [address] [place] [address] Care Team Providers Name Role Phone Austin Brumfield - Gastroenterology Care Team Information Audiology Doctor [phone] Ender Daniel MD Care Team Information Audiology Doctor [phone] Problems Active Problems Provider Date Benign essential hypertension Yogi Diamond MD Onset: 07/14/2011 Type 2 diabetes mellitus Jeanna Charles MD Onset: 04/27/2013 Mixed hyperlipidemia Jeanna Charles MD Onset: 04/27/2013 Coronary arteriosclerosis Jeanna Charles MD Onset: 04/27/2013 Constipation Jeanna Charles MD Onset: 04/27/2013 Bundle branch block Jeanna Charles MD Onset: 04/27/2013 Anxiety state Jeanna Charles MD Onset: 04/27/2013 Vitamin D deficiency Jeanna Charles MD Onset: 12/01/2013 Obesity Jeanna Charles MD Onset: 12/01/2013 Vitamin B12 deficiency (non anemic) Jeanna Charles MD Onset: 07/20/2015 Kidney stone Festus Rodriguez PA Onset: 08/24/2019 Note: 8mm R lower pole -- CT 01/2019 Social History Type Date Description Comments Sex Unknown Tobacco Use Start: Unknown End: Unknown denies cigarette use ETOH Use Denies alcohol use Tobacco Use Start: Unknown Patient has never smoked Smoking Status Reviewed: 08/24/19 Patient has never smoked Allergies, Adverse Reactions, Alerts Description No Known Drug Allergies Medications Active Medications SIG Qnty Indications Ordering Date Provider Nitrofurantoin Monohyd 1 by mouth 20caps N39.0 Nanda Lim 08/24/2019 Macro twice a day MD Dara 100mg Capsules [d/c keflex] Slow-Mag 2 Tabs Three Peggy Hurst 10/04/2018 71.5-119mg Times Daily( C, RN [facility] [employer] OPERATOR Tablets Nephrology) Freestyle Lite Test for 3 times a 300units E11.65 Peggy Hurst 2017 day glucose C, RN MS VAC PRESS OPERATOR Strips testing e11.65 E11.9 Rosuvastatin Calcium Take One Tablet By 90tabs E78.2 Peggy Hurst, 20mg Mouth Every Day RN [facility] [employer]AC PRESS OPERATOR Tablets Alprazolam 1/2-1 by mouth 90tabs F41.8 Peggy Hurst, 09/16/2017 0.5mg Tablets three times a day RN MS VAC PRESS OPERATOR as needed anxiety and/or sleep Xarelto Take One Tablet By 90tabs I25.10 Peggy Hurst, 12/21/2015 20mg Tablets Mouth Every Day as RN MS VAC PRESS OPERATOR Directed I48.0 I49.9 Vitamin B-12 1 by mouth every 90tabs D51.1 Peggy Hurst, 07/20/2015 1000mcg day RN MS VAC PRESS OPERATOR Tablets Sub Gemfibrozil take one tablet by 180tabs E78.2 Peggy Hurst, 10/30/2014 600mg Tablets mouth twice a day RN MS VAC PRESS OPERATOR Levemir Flextouch inject 28-34 units 30ml E11.9 Peggy Hurst, 2013 under the skin RN MS VAC PRESS OPERATOR 100Unit/ML Solution every morning,via Pen-Inject sliding scale Metformin HCL take one tablet by 180tabs E11.9 Peggy Hurst, 2013 1000mg mouth two times a RN MS VAC PRESS OPERATOR Tablets day with food, Vitamin D3 qday E55.9 Jeanna Charles MD 11/28/2013 2000Unit Tablets Freestyle Glucometer 1units E11.9 Jeanna Charles MD 11/28/2013 Isosorbide Mononitrate Take One Tablet By 180tabs I25.10 Peggy Hurst , 09/16/2012 20mg Mouth Twice A Day RN MS VAC PRESS OPERATOR Tablets E78.2 Onetouch Ultrafine test bs bid at 2units E11.65 Yogi Diamond, 2002 Lancets alternating times and Boxes prn- type 2 dm E11.9 Asa One PO Q Day I25.10 Yogi Diamond MD 03/21/2003 81mg Tablets Tikosyn 1 by mouth twice a I25.10 Unknown 500mcg Capsules day I49.9 Iron OTC one by mouth day Unknown 325(65Fe) mg Tablets Metoprolol Succinate take three tablets 540tabs I25.10 Peggy Hurst, ER by mouth every RN MS VAC PRESS OPERATOR 25mg Tablets ER 24HR morning and three tablets every evening I10 Amlodipine Besylate Take One Tablet By 90tabs I10 Peggy Hurst, 10mg Mouth Every Day RN MS VAC PRESS OPERATOR Tablets Amiloride HCL 1 PO qd Unknown 5mg Tablets Immunizations CPT Code Status Date Vaccine Lot # [id number] Given 07/26/2019 Fluzone Highdose Age 65 And Over Preservative & Antibiotic Free 83891 Given 06/17/2018 Influenza Vac, Quadrivalent, Split, 0.5mL [id number] Dosage, Im Use 79183 Given 10/28/2017 Pneumococcal 23 Immunization Adult Or [id number] Immunosuppressed Patient 66702 Given 06/26/2017 Afluria Or Fluvirin Flu Vac Intramuscular 23592 Given 07/17/2016 Influenza Vac, Quadrivalent, Split, 0.5mL [id number] Dosage, Im Use 57568 Given 07/18/2015 Influenza Vac, Quadrivalent, Split, 0.5mL [id number] Dosage, Im Use 62333 Given 04/17/2015 Tdap (Adacel) Ages 7 And Above Only [id number] 74685 Given 01/16/2015 Prevnar 13 Pneumococal Conjugate Vaccine Q2038 Given 07/06/2014 Fluzone Trivalent Immunization [id number] Q2038 Given 07/05/2012 Fluzone Trivalent Immunization [id number] 51662 Given 08/25/2011 Pneumococcal 23 Immunization Adult Or [id number] Immunosuppressed Patient Q2038 Given 07/25/2011 Fluzone Trivalent Immunization [id number] 74841 Given 06/28/2010 Afluria Or Fluvirin Flu Vac Intramuscular [id number] 11557 Given 08/03/2009 Afluria Or Fluvirin Flu Vac Intramuscular [id number] 40670 Given 07/28/2005 Afluria Or Fluvirin Flu Vac Intramuscular [id number] 01442 Given 05/01/2004 Immunization Td 7 Yrs Or Older Vital Signs Date Vital Result Comment 08/24/2019 11:54am Weight 189.12 lb Heart Rate 70 /min BP Systolic 109 mmHg BP Diastolic 71 mmHg Height 64 inches 5'4" BMI (Body Mass Index) 32.5 kg/m2 Urine Dipstick - Blood 3+ Urine Dipstick - Protein NEGATIVE Urine Dipstick - Glucose NEGATIVE Urine Dipstick - Leukocytes TRACE 06/09/2019 7:39am Weight 191.50 lb Heart Rate 63 /min BP Systolic 120 mmHg BP Diastolic 71 mmHg Height 64 inches 5'4" BMI (Body Mass Index) 32.9 kg/m2 Results Test Acquired Date Facility Test Result H/L Range Note Laboratory test 08/24/2019 [facility] Fluid <pending> finding Specimen - Urine Culture And 08/20/2019 [facility] Urine Culture SEE RESULT 1, 2 Sensitivities BELOW Hemoglobin A1c 06/09/2019 [facility] Hemoglobin A1c 6.3 % High 4.1-5.9 Estimated Average Glucose Calc 134 mg/dL 71-140 Comprehensive Met Panel-[facility] 06/09/2019 [facility] Sodium 139 mmol/L 135- 146 3 Potassium 5.7 mmol/L High 3.5-5.2 Chloride# 110 mmol/L 97-110 4 Carbon Dioxide 15 mmol/L Low 24-34 Calcium 10.3 mg/dL 8.5-10.5 5 Glucose 87 mg/dL 70-105 BUN 17 mg/dL 6-26 Creatinine 1.0 mg/dL 0.5-1.4 Total Protein 7.5 g/dL 6.0-8.0 Albumin 4.7 g/dL 3.6-4.9 Globulin 2.8 g/dL 2.0-3.5 A/G Ratio 1.7 Ratio 1.0-2.2 Total Bilirubin 0.3 mg/dL 0.1-1.3 Alkaline Phosphatase 71 U/L 24-140 Alt 21 U/L 3-42 Ast 29 U/L 8-42 Anion Gap 14 mmol/L 5-15 6 Female Egfr 60 Low >60 7 Male Egfr 80 >60 8 Lipid 06/09/2019 [facility] Cholesterol 165 mg/dL 50-199 Triglycerides 73 mg/dL 30-200 HDL 50 mg/dL 35-85 9 Chol/ HDL Ratio 3.3 ratio Low 3.7-5.6 VLDL 15 mg/dL 2-29 LDL (Calc) 101 mg/dL High 20-99 10 1 [id number] 2 SEE RESULT BELOW Name: NAJMA HUFF : [address]: Paulo Aguayo MD Acct: [id number] Unit: [id number] AGE: 73 Location: [facility] Re08/20/19 SEX: F Status: DEP ER SPEC: [id number] IRENE: 08/20/[address]: Celena ACUÑA REQ: [id number] RECD: 08/21/19 STATUS:ELISHA DAVIS DR: Peggy Aguayo MD _ SOURCE: URINE SPDESC: ORDERED: Urine Culture COMMENTS: [id number] QUERIES: Urine Source: Random Procedure Result Reported Site Urine Culture Final 08/23/19- 1108 ML No growth of clinically significant organisms * ML - Main Lab . END OF REPORT DEPARTMENT OF PATHOLOGY, [address] [place] [address] Suman Pleitez M.D. Director [facility] # [id number] 3 Updated reference range on new analyzer 4 Updated reference range on new analyzer 5 Updated reference range 02-02-2019 6 Updated Reference Range 7 Concerning GFR Guidelines for Americans: Normal function or mild renal disease, if clinically at risk: >/= 60 mL/min Moderately decreased: 30-59 Severely decreased: 15-29 Renal failure: <15 There is reduced accuracy above 60ml/min/1.73 m squared, but the numeric value may be clinically useful in the near 60 range 8 Concerning GFR Guidelines: Normal function or mild renal disease, if clinically at risk: >/= 60 mL/min Moderately decreased: 30-59 Severely decreased: 15-29 Renal failure: <15 There is reduced accuracy above 60ml/min/1.73 m squared, but the numeric value may be clinically useful in the near 60 range Glomerular Filtration Rate (GFR) is estimated based on the CKD-EPI equation, which assumes a steady state for creatinine as recommended by the National Kidney Disease Education Program in conjunction with the National Institutes of Health and the National Kidney Foundation. Clinical conditions in which it may be necessary to measure GFR by using clearance methods include extremes of age and body size, severe malnutrition or obesity, diseases of skeletal muscle, paraplegia or quadriplegia, vegetarian diet, rapidly changing kidney function, and calculation of the dose of potentially toxic drugs that are excreted by the kidneys. 9 Per NCEP ATP III Guidelines: Results lower than 40 mg/dL are suggestive of increased risk for coronary artery disease. Results > or = to 60 mg/dL are considered a negative risk factor. 10 Per NCEP ATP III Guidelines: Normal Population <130 Patients with medical conditions: CHD/DM Optimal: <100 Borderline high: 130-159 High: 160-189 Very high: >189 Procedures Date Code Description Status 03/22/2019 [id number] Mammogram Completed 12/03/2017 [id number] Diabetic Retinal Eye Exam Completed 01/09/2017 [id number] Bone Mineral Density Test Completed 01/09/2017 [id number] Mammogram Completed 03/02/2015 [id number] Mammogram Completed 09/22/2014 [id number] Bone Mineral Density Test Completed 08/28/2014 [id number] Bone Mineral Density Test Completed 02/02/2014 [id number] Mammogram Completed 01/27/2013 [id number] Mammogram Completed 01/21/2012 [id number] Mammogram Completed 09/09/2011 [id number] Colonoscopy Completed Medical Devices Description No Information Available Encounters Type Date Location Provider Dx Diagnosis Office Visit 06/09/2019 Gina Peggy Hurst, E11.9 Type 2 diabetes 8:00a RN [facility] mellitus without complications E83.42 Hypomagnesemia E87.5 Hyperkalemia E78.2 Mixed hyperlipidemia Z68.32 Body mass index (BMI) 32.0-32.9, adult Assessments Date Code Description Provider 08/24/2019 N39.0 Urinary tract infection, site not Festus Rodriguez PA specified 08/24/2019 R31.9 Hematuria, unspecified Festus Rodriguez PA 08/24/2019 N20.0 Kidney stone Festus Rodriguez PA 08/24/2019 E66.9 Obesity, unspecified Festus Rodriguez PA 08/24/2019 Z68.32 Body mass index (BMI) 32.0-32.9, adult Festus Rodriguez PA 06/09/2019 E11.9 Type 2 diabetes mellitus without Peggy Hurst RN [facility] complications 06/09/2019 E83.42 Hypomagnesemia Peggy Hurst, RN [facility] 06/09/2019 E87.5 Hyperkalemia Peggy Hurst, [facility] 06/09/2019 E78.2 Mixed hyperlipidemia Peggy Hurst RN [facility] 06/09/2019 Z68.32 Body mass index (BMI) 32.0-32.9, adult Peggy Hurst, RN [facility] [employer] [facility] 06/09/2019 E11.9 Type 2 diabetes mellitus without [facility] complications 06/09/2019 E78.2 Mixed hyperlipidemia [facility] Plan of Treatment Future Appointment(s):10/20/2019 8:20 am - Peggy Hurst, RN [facility] OPER[facility] at [facility]/24/2019 - Festus Rodriguez PAN39.0 Urinary tract infection, site not specifiedNew Medication:Nitrofurantoin Monohyd Macro 100 mg - 1 by mouth twice a day [d/c keflex]Comments:will treat with and change Abx. culture was negative at urgent care but not feeling better.see roxmqnbloM97.9 Hematuria, unspecifiedComments:negative cytology in 01/2019. 01/2019 -- 8mm R lower pole stone within the kidney.N20.0 Kidney stoneNew Xrays:[id number] US Retroperitoneal LTD (Aorta Or Renal), Scheduled: 08/24/19Comments:CT scan showed 8mm Right lower pole stone that was nonobstructing 01/2019. Will u/s retroperitoneum to asses for hydro and stones.E66.9 Obesity, inujndnpsouH47.32 Body mass index (BMI) 32.0 -32.9, adult Functional Status Description No Information Available Mental Status Description No Information Available Referrals Description No Information Available
[2019-09-15 11:07] LABS: Urine Appearance Clear; Urine Bilirubin Negative (Negative); Urine Blood 2+ (Negative); Urine Color Yellow; Urine Glucose Negative (Negative); Urine Ketones Negative (Negative); Urine Nitrite Negative (Negative); Urine Protein Negative (Negative); Urine Specific Gravity 1.014 (1.010-1.030); Urine Urobilinogen Negative (Negative)
[2019-09-15 11:08] LABS: Albumin 4.7 g/dL (3.2-5.2); Albumin/Globulin Ratio 1.3 (1-3); C Reactive Protein 6.11 mg/L (<8.01); Calcium 10.7 mg/dL (8.6-10.3); EGFR African American 59.7 (>60); EGFR Non-African American 49.3 (>60); Globulin 3.5 g/dL (2-4); Total Bilirubin 0.3 mg/dL (0.2-1.0); Total Protein 8.2 g/dL (6.4-8.9)
[2019-09-15 11:15] LABS: Potassium 5.9 mmol/L (3.5-5.0)
[2019-09-15 11:30] LABS: Urine Bacteria Absent (Absent); Urine Red Blood Cell Trace(0-2/hpf) (Absent); Urine Squamous Epithelial Cell Present (Absent); Urine Uric Acid Crystals Present (Absent); Urine White Blood Cell Absent (Absent)
[2019-09-15] MEDS ORDERED: Insulin REGULAR(*) 1 UNITS UNIT IV PUSH ONE ×2 (11:40→16:11)
[2019-09-15] MEDS ORDERED: Dextrose 50% VIAL 50 ml IV PRN (11:40)
[2019-09-15] MEDS ORDERED: Morphine 4 MG/ML VIAL (1 ml) 4 MG/ML VIAL IV ONE (12:30)
[2019-09-15] MEDS ORDERED: Morphine INJ* 2 MG/ML 1 ML SYRINGE (TWO MG - NEW SYRINGE VERSION) IV PRN (14:22)
[2019-09-15] MEDS ORDERED: NS 0.9% 1000 ML** 1,000 ML IV SCH (14:30)
[2019-09-15 15:16] LABS: Magnesium 1.8 mg/dL (1.9-2.7)
[2019-09-15] MEDS ORDERED: Magnesium Sulfate 2 GM IV* 2 GM/50 ML BAG IVPB ONE (15:21)
[2019-09-15 16:04] LABS: EGFR African American 57.9 (>60); EGFR Non-African American 47.8 (>60)
[2019-09-15] MEDS ORDERED: Dextrose 50% Syringe 50 ML* 25 GM/50 ML SYRINGE IV PUSH PRN (16:11)
[2019-09-15] MEDS ORDERED: Sodium Polystyrene ORAL.SOL* 15 GM/60 ML BTL PO ONE (16:12)
[2019-09-15] MEDS ORDERED: Dextrose 50% VIAL 50 ml IV PUSH PRN (17:33)
--- NOTE | 2019-09-15 17:51 | CONS ---
CONSULTATION NOTE: DATE OF CONSULT: 09/15/19 LOCATION: The patient is in room number 331. HISTORY OF PRESENT ILLNESS: I was asked by the emergency room and the hospitalist service to see this 74-year-old white female because of recurrent episodes of right flank pain. Ms. Brown was seen about 1 month ago in the emergency room because of right flank pain. At that initial visit, she was noted to have nonobstructing right renal calculi. She was managed conservatively. Today, she went back to the emergency room because of an episode of right renal colic. She did not have any fever or chills. She had a noncontrast CT of the abdomen and pelvis which showed an 8 to 10 mm calculus at the right ureteropelvic junction associated with moderate right hydronephrosis. There was a nonobstructing calculus measuring about 8 mm in the lower pole calyx of the right kidney. Her lab work showed a normal serum creatinine and no signs of infection. She was not septic. The initial plan was to take her to the operating room for placement of a right ureteral stent in preparation for definitive treatment of the stone. She was noted to have an elevated serum potassium at 5.9 which was still elevated at 6.0 after giving her insulin and dextrose. She is still being worked up for the hyperkalemia. She is diabetic, on Xarelto. With her pain controlled this evening and no evidence of sepsis, the procedure is being postponed until her serum potassium is improved. PLAN/RECOMMENDATION: The plan is to put her on the schedule for right ureteral stent insertion tomorrow if her medical condition allows it. [id number]/[facility] #: [id number] YOLANDA
--- NOTE | 2019-09-15 17:59 | HP ---
CC: Peggy Hurst NP; Jose Juan Manuel MD * HISTORY AND PHYSICAL: DATE OF ADMISSION: 09/15/19 PRIMARY CARE PROVIDER: Peggy Hurst NP OTHER PROVIDER: Jose Juan Manuel MD ATTENDING PHYSICIAN: Vicky Art MD * (dictated by DOMENICO Rosenbaum ). CHIEF COMPLAINT: 1. Right flank pain, right lower quadrant pain. 2. Hematuria. HISTORY OF PRESENT ILLNESS: Ms. 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 The patient states she woke at 0200 this morning with low back pain on the right side. She reports the pain was stabbing. She repositioned herself and the pain did not improve. She slept in her chair until 0500 when the pain became so bad that she became nauseous, but did not vomit. The pain then moved to the right lower quadrant. She describes the pain as throbbing. At approximately 0830, the patient called an ambulance and arrived to the ER. She relates a history of 1 month of hematuria, she was treated for UTI with Keflex and then nitrofurantoin. She notes that hematuria stopped with the discontinuation of antibiotics but then resumed 2-3 days later. She has not had antibiotics for the last 3 weeks. She has had lower abdominal cramping that has been intermittent x1 month and is associated with hematuria. She has had 8 pounds weight loss in the last 1 month due to feeling unwell. She complains of chills today. The patient is on Xarelto; her last dose was at 0800 this morning. In the ER, the patient received a full workup including laboratory data. CBC was without abnormality. The patient has hyperkalemia, elevated creatinine, elevated calcium. Urinalysis revealed 2+ blood as well as uric acid crystals. CT of the abdomen and pelvis shows right hydronephrosis with 1.4 x 1 cm calculus at the right UPJ. The left kidney is without hydronephrosis. In the ER, the patient was given IV dextrose, IV insulin regular 8 units, 4 mg IV morphine, 1 L normal saline. Hospitalist team was asked to evaluate the patient for admission. PAST MEDICAL HISTORY: 1. Systolic and diastolic heart failure with ejection fraction 40-45%. 2. Diabetes mellitus type 2, insulin-dependent. 3. Coronary artery disease, status post AK, 6 stents greater than 10 years ago. 4. Hypertension. 5. Hyperlipidemia. 6. Left bundle-branch block. 7. GERD. 8. Hiatal hernia. 9. Anemia. 10. Asthma. PAST SURGICAL HISTORY: Hysterectomy, tumor between right first and second toe, cholecystectomy/appendectomy, 6 stents. HOME MEDICATIONS: 1. Alprazolam 0.5 mg p.o. at bedtime. 2. Amiloride 5 mg p.o. daily. 3. Amlodipine besylate 10 mg p.o. daily. 4. Aspirin 81 mg daily. 5. Cholecalciferol 1000 units p.o. daily. 6. Cyanocobalamin 1000 mcg sublingual daily. 7. Tikosyn 500 mcg p.o. b.i.d. 8. Ferrous gluconate 27 mg p.o. daily. 9. Gemfibrozil 600 mg p.o. b.i.d. 10. Insulin detemir sliding scale 90 to 100, 28 units; 111 to 130, 30 units; 131 and above, 32 units. 11. Isosorbide mononitrate 20 mg p.o. b.i.d. 12. Magnesium chloride 286 mg p.o. t.i.d. 13. Metformin 1000 mg p.o. b.i.d. 14. Metformin succinate 75 mg p.o. b.i.d. 15. Rivaroxaban 20 mg p.o. daily. 16. Rosuvastatin 20 mg p.o. at bedtime. DRUG ALLERGIES: ADHESIVE TAPE, rash. FAMILY HISTORY: Father had CAD, AAA. One brother with AK. One brother with diabetes mellitus, CAD, including triple bypass and stent. Father likely had a CVA. No family history of cancer. SOCIAL HISTORY: The patient denies current or former use of tobacco. She drinks alcohol less than weekly and has not drunk in years. She does not use any other drugs. 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 She is and lives with her . She has 3 girls who live out of the house. In the event that she is unable to make her own medical decision, she has appointed her , Carlos A Brown or her daughter Nisha Hernandez, to be her surrogate decision maker. REVIEW OF SYSTEMS: A 14-point review of systems has been performed and all the pertinent positives and negatives are in the HPI, all other systems are negative. PHYSICAL EXAMINATION GENERAL: Ms. Brown is an older obese white female who is sitting up in bed. She appears somewhat groggy, but is pleasant and cooperative. She appears comfortable and in no acute distress. VITAL SIGNS: Temperature 98.1 temporal, heart rate 56, respiratory rate 16, oxygen saturation 93% on room air, blood pressure is 140/78, HEENT: PERRL, EOMI. Sclerae nonicteric. Hearing is grossly intact. Oral mucous membranes are mildly dry. Pharynx is clear without lesions. NECK: Full range of motion. Thyroid nonpalpable. Trachea midline. No lymphadenopathy. PULMONARY: Symmetrical chest expansion with no use of accessory muscles. Clear to auscultation bilaterally without rhonchi, wheeze or rales. CARDIOVASCULAR: Regular rate and rhythm with S1, S2 present. No murmurs, rubs , clicks or gallops. There is no JVD or peripheral edema. ABDOMEN: Obese, bowel sounds normoactive throughout. There is mild right upper quadrant pain without tenderness elsewhere. Negative for CVA tenderness. MUSCULOSKELETAL: 5/5 strength in bilateral upper and lower extremities. NEURO: The patient is awake. She is alert and oriented x3. Cranial nerves II through XII are grossly intact. She moves all of her extremities with motor strength of 5/5 bilaterally in upper and lower extremities. Appian Developer strength is equal. DIAGNOSTIC STUDIES/LABORATORY DATA: CBC unremarkable. Potassium 5.9, creatinine 1.09, calcium 10.7. Urinalysis; 2+ blood, positive uric acid crystals. CT abdomen and pelvis, impression: Marked right hydronephrosis with a 1.4 x 1 cm calculus in the right proximal ureter just distal to the ureteropelvic junction, other nonobstructing calculi is noted in the right renal calyx. The left kidney shows no hydronephrosis. The patient is status post cholecystectomy. EKG: rate 57 with left bundle-branch block, which is chronic. ASSESSMENT AND PLAN: Ms. Brown is a 74-year-old female with past medical history of systolic and diastolic heart failure with ejection fraction of 40-45% , diabetes mellitus type 2 insulin-dependent, coronary artery disease, hypertension, hyperlipidemia, history of left bundle-branch block, who presented to the ER today with complaints of left flank pain and was found to have nephrolithiasis. The patient will be admitted for: 1. Right-sided nephrolithiasis with hydronephrosis. The patient will be admitted for stent placement with Dr. Manuel this evening. Her last dose of Xarelto was at 0800 this morning. Currently, her potassium is elevated. She has been given dextrose and glucose and we are awaiting repeat potassium. She has a mild acute kidney injury, which is likely due to hydronephrosis and nephrolithiasis. We will continue pain management and nausea control until stent is placed this afternoon. She will be placed on gentle IV hydration. She has received 1 L normal saline in the ER. She will be IV fluids at 100 cc per hour x1 L due to concern for fluid overload in the setting of heart failure. 2. Elevated creatinine. This is likely due to acute kidney injury from hydronephrosis. She has received 1 L of IV fluids. She will be placed on 100 cc/h x1 L after this. 3. Hyperkalemia. The patient has received glucose and dextrose. Potassium recheck has been ordered. It appears that the patient does have elevated potassium levels at times. This is likely in the setting of home medication, amiloride. There are no EKG changes noted. Continue to monitor potassium. 4. Atrial fibrillation. Continue home medications of metoprolol succinate and Tikosyn. The patient is on rivaroxaban, last dose was at 0800 today. We will continue this medication starting tomorrow. 5. Diabetes mellitus. The patient is on sliding scale Levemir at 28 to 32 units at bedtime. She is n.p.o. at this time and therefore, her insulin dose will be decreased to 15 at bedtime unless she resumes eating prior to insulin administration. We will hold metformin at this time. 6. Systolic and diastolic heart failure. Continue home medications; metoprolol , Tikosyn, amlodipine, and amiloride. 7. Hypertension. Continue home medications; amlodipine, metoprolol. 8. Hyperlipidemia. Continue gemfibrozil, rosuvastatin. 9. Anemia. Continue home ferrous gluconate. 10. DVT prophylaxis. According DVT Risk Assessment, the patient scores 3 placing her at high risk. She will be continued on her home medication, rivaroxaban. 11. Code Status. Full code. TIME SPENT: Approximately 60 minutes was spent on this admission, greater than half the time spent [id number] with the patient and her family obtaining history, performing physical, and reviewing the plan of care. This case has been reviewed with my attending, Dr. Art, who is in agreement with the plan of care. DOMENICO ROSENBAUM [id number]/CPS #: [id number] YOLANDA
[2019-09-15] MEDS ORDERED: Insulin GLARGINE(*) 1 UNITS UNIT SUBCUT SCH (18:00)
[2019-09-15] MEDS: ALPRAZolam TAB* 0.5 MG PO SCH (21:03)
[2019-09-15] MEDS: Metoprolol Succinate XL TAB* 25 MG PO SCH (21:03)
[2019-09-15] MEDS: Magnesium Chloride EC TAB* 64 MG PO SCH (21:04)
[2019-09-15] MEDS: Gemfibrozil TAB* 600 MG PO SCH (21:04)
[2019-09-15] MEDS: ISOSORBIDE MONONITRATE 20 MG PO SCH (21:04)
[2019-09-15] MEDS: CMCS: Rosuvastatin (NF) 20 MG TAB PO SCH (21:05)
[2019-09-15] MEDS: Dofetilide CAP* 500 MCG PO SCH (21:06)
[2019-09-15] MEDS: Insulin GLARGINE(*) 1 UNITS UNIT SUBCUT SCH (21:08)
[2019-09-15] MEDS: Insulin LISPRO* 1 UNITS UNIT SUBCUT SCH (21:10)
[2019-09-16] MEDS ORDERED: Sodium Polystyrene ORAL.SOL* 15 GM/60 ML BTL PO ONE (06:00)
[2019-09-16 06:21] LABS: ABS Eosinophils 0.3 10^3/ul (0-0.6); ABS Lymphocytes 1.2 10^3/ul (1.0-4.8); ABS Monocytes 0.5 10^3/ul (0-0.8); ABS Neutrophils 2.8 10^3/ul (1.5-7.7); Eosinophil % 5.6 %; Hematocrit 33 % (35-47); Hemoglobin 10.9 g/dL (12.0-16.0); Lymphocyte % 25.4 %; Mean Corpuscular HGB Conc 33 g/dL (31-36); Mean Corpuscular Hemoglobin 29 pg (27-31); Mean Corpuscular Volume 88 fL (80-97); Mean Platelet Volume 9.9 fL (7.4-10.4); Nucleated Red Blood Cells % 0.1; Platelet Count 205 10^3/uL (150-450); Red Blood Count 3.75 10^6 /uL (3.70-4.87); Red Cell Distribution Width 15 % (10-15); White Blood Count 4.8 10^3/uL (3.5-10.8)
[2019-09-16 06:29] LABS: BUN/Creatinine Ratio 15.3 (8-20); EGFR African American 43.3 (>60); EGFR Non-African American 35.8 (>60); Potassium 4.8 mmol/L (3.5-5.0)
[2019-09-16] MEDS: Insulin LISPRO* 1 UNITS UNIT SUBCUT SCH ×4 (07:41→21:19)
--- NOTE | 2019-09-16 08:12 | PN ---
Subjective Date of Service: 09/16/19 Interval History: HD2 on 09/16 74 F PMH HFrEF (EF40-45%), Afib on AC (LBBB), IDDM, insomnia on chronic benzo, CAD s/p PCI, HTN, HLD, who presented 09/15 with c/o R flank pain and hematuria in the setting of frequent UTIS, was found to have obstructing calculus at R UPJ with hydronephorsis and MARY (w/ associated hyperK). Overnight, no acute events, VSS Labs K normalized, mild Cr Bump This morning, planning for stent in afternoon, seen with at bedside, she is feeling well with no acute complaints. Kwesi CP SOB GI or MSK complaints, no questions about procedure, feels well educated by urology team. Objective Active Medications: Alprazolam (Xanax Tab*) 0.5 mg PO BEDTIME [facility] Last Admin: 09/15/19 21:03 Dose: 0.5 mg Amiloride HCl (Midamor Tab*) 5 mg PO DAILY [facility] Amlodipine Besylate (Norvasc Tab*) 10 mg PO QAM [facility] Aspirin (Aspirin Ec Tab*) 81 mg PO QAM [facility] Cholecalciferol (Vitamin D Tab*) 1,000 units PO QAM [facility] Cyanocobalamin (Vitamin B12 Tab*) 1,000 mcg PO QAM [facility] Dextrose (D50w Syringe 50 Ml*) 25 gm IV PUSH ONCE PRN PRN Reason: FS < 60 Dextrose (Dextrose 50% Vial 50 Ml*) 25 ml IV PUSH .FOR FS < 60 - SS PRN PRN Reason: FS < 60 Dofetilide (Tikosyn Cap*) 500 mcg PO BID [facility] Last Admin: 09/15/19 21:06 Dose: 500 mcg Ferrous Gluconate (Fergon Tab*) 324 mg PO DAILY [facility] Gemfibrozil (Lopid Tab*) 600 mg PO BID [facility] Last Admin: 09/15/19 21:04 Dose: 600 mg Insulin Glargine (Lantus(*)) 20 units SUBCUT QPM [facility] Last Admin: 09/15/19 21:08 Dose: 20 units Insulin Human Lispro (Humalog*) 0 units SUBCUT ACHS [facility]; Protocol Last Admin: 09/16/19 07:41 Dose: Not Given Isosorbide Mononitrate (Isosorbide Mononitrate (Nf)) 20 mg PO BID [facility]; Protocol Last Admin: 09/15/19 21:04 Dose: 20 mg Magnesium Chloride (Slow Mag Ec Tab*) 64 mg PO TID [facility] Last Admin: 09/15/19 21:04 Dose: 64 mg Metoprolol Succinate (Toprol Xl Tab*) 75 mg PO BID [facility] Last Admin: 09/15/19 21:03 Dose: 75 mg Morphine Sulfate (Morphine Inj (Syringe))*) 2 mg IV Q4H PRN PRN Reason: PAIN - MILD Rivaroxaban (Xarelto(*)) 20 mg PO DAILY WITH MEAL [facility] Rosuvastatin Calcium (Crestor (Nf)) 20 mg PO BEDTIME [facility] Last Admin: 09/15/19 21:05 Dose: 20 mg Vital Signs - 8 hr 09/16/19 09/16/19 09/16/19 03:30 04:54 07:59 Temperature 97.6 F 98.5 F Pulse Rate 62 66 Respiratory 16 16 16 Rate Blood Pressure 108/60 125/55 (mmHg) O2 Sat by Pulse 96 96 Oximetry Oxygen Devices in Use Now: None Appearance: Pleasant woman in NAD Eyes: No Scleral Icterus, PERRLA Ears/Nose/Mouth/Throat: NL Teeth, Lips, Gums Neck: NL Appearance and Movements; NL JVP, Trachea Midline Respiratory: Symmetrical Chest Expansion and Respiratory Effort, Clear to Auscultation Cardiovascular: NL Sounds; No Murmurs; No JVD, RRR Abdominal: NL Sounds; No Tenderness; No Distention, No Hepatosplenomegaly Lymphatic: No Cervical Adenopathy Extremities: No Edema Skin: No Rash or Ulcers Neurological: Alert and Oriented x 3 Result Diagrams: 09/16/19 05:58 09/16/19 05:58 Additional Lab and Data: CTAP: Calculus at R UPJ Assess/Plan/Problems-Billing Assessment: 74 F PMH HFrEF (EF40-45%), Afib on AC (LBBB), IDDM, insomnia on chronic benzo, CAD s/p PCI, HTN, HLD, who presented 09/15 with c/o R flank pain and hematuria in the setting of frequent UTIS, was found to have obstructing calculus at R UPJ with hydronephorsis and MARY (w/ associated hyperK). - Patient Problems (1) Right ureteral calculus Current Visit: Yes Status: Acute Code(s): N20.1 - CALCULUS OF URETER SNOMED Code(s): 61661000 Comment: -Continue with proposed procedure, appreciate urology input -No e/o infection -Associated hydronephrosis (2) MARY (acute kidney injury) Current Visit: Yes Status: Acute Code(s): N17.9 - ACUTE KIDNEY FAILURE, UNSPECIFIED SNOMED Code(s): 13066458 Comment: -Post renal, CTM -Associated HyperK has resolved (3) Afib Current Visit: No Status: Acute Code(s): I48.91 - UNSPECIFIED ATRIAL FIBRILLATION SNOMED Code(s): 78762911 Comment: -Rate/rhytyhm controlled on Dofeletide and Metoprolol, holding AC for procedure -CHADS VASC >3 (4) CAD (coronary artery disease) Current Visit: No Status: Acute Code(s): I25.10 - ATHSCL HEART DISEASE OF [place] CORONARY ARTERY W/O ANG PCTRS SNOMED Code(s): 79735799 Comment: -Hx of PCI. Isosorbide, asa, BB, statin, not on MIKY (5) Hypertension Current Visit: No Status: Acute Code(s): I10 - ESSENTIAL (PRIMARY) HYPERTENSION SNOMED Code(s): 19919950 Comment: -Amilodrie,, isordil, Amlodipine, Toprol (6) Type 2 diabetes mellitus Current Visit: No Status: Chronic Comment: -Holding Metformin, continue insulin (7) Heart failure with reduced ejection fraction Current Visit: Yes Status: Acute Code(s): I50.20 - UNSPECIFIED SYSTOLIC ( CONGESTIVE) HEART FAILURE SNOMED Code(s): 748785460 Comment: -Continue amiloride, BB, asa, statin -Euvolemic (8) Insomnia Current Visit: Yes Status: Acute Code(s): G47.00 - INSOMNIA, UNSPECIFIED SNOMED Code(s): 984897825 Comment: -On alprazolam (9) DVT prophylaxis Current Visit: No Status: Acute Code(s): ZEQ0618 - SNOMED Code(s): 528950685 Comment: -Rivoraxaban on hold 09/16 (10) Full code status Current Visit: No Status: Acute Code(s): Z78.9 - OTHER SPECIFIED HEALTH STATUS SNOMED Code(s): 714507942 Status and Disposition: Inpatient for procedure, d/c as urology feels appropriate
[2019-09-16] MEDS ORDERED: Rivaroxaban TAB(*) 20 MG TAB PO SCH (08:30)
[2019-09-16] MEDS: Ferrous Gluconate TAB* 324 MG TAB PO SCH (08:38)
[2019-09-16] MEDS: ISOSORBIDE MONONITRATE 20 MG PO SCH ×2 (08:38→21:14)
[2019-09-16] MEDS: amLODIPine TAB* 5 MG PO SCH (08:38)
[2019-09-16] MEDS: Aspirin EC TAB* 81 MG TAB.EC PO SCH (08:38)
[2019-09-16] MEDS: Cyanocobalamin TAB* 500 MCG PO SCH (08:39)
[2019-09-16] MEDS: Metoprolol Succinate XL TAB* 25 MG PO SCH ×2 (08:39→21:16)
[2019-09-16] MEDS: Cholecalciferol TAB* 1000 UNITS PO SCH (08:39)
[2019-09-16] MEDS: aMILoride TAB* 5 MG PO SCH (08:39)
[2019-09-16] MEDS: Dofetilide CAP* 500 MCG PO SCH ×2 (08:39→21:16)
[2019-09-16] MEDS: Gemfibrozil TAB* 600 MG PO SCH ×2 (08:39→21:15)
[2019-09-16] MEDS: Magnesium Chloride EC TAB* 64 MG PO SCH ×3 (08:39→21:17)
[2019-09-16] MEDS ORDERED: Famotidine IV* 10 MG/ML 2 ML (20 mg) IV ONE (12:52)
[2019-09-16] MEDS: Insulin GLARGINE(*) 1 UNITS UNIT SUBCUT SCH (18:44)
[2019-09-16] MEDS: ALPRAZolam TAB* 0.5 MG PO SCH (21:17)
[2019-09-16] MEDS: CMCS: Rosuvastatin (NF) 20 MG TAB PO SCH (21:17)
[2019-09-17 06:13] LABS: BUN/Creatinine Ratio 13.9 (8-20); Calcium 9.2 mg/dL (8.6-10.3); EGFR African American 38.9 (>60); EGFR Non-African American 32.1 (>60); Potassium 4.3 mmol/L (3.5-5.0)
[2019-09-17 06:17] LABS: ABS Eosinophils 0.4 10^3/ul (0-0.6); ABS Lymphocytes 1.1 10^3/ul (1.0-4.8); ABS Monocytes 0.6 10^3/ul (0-0.8); ABS Neutrophils 3.8 10^3/ul (1.5-7.7); Eosinophil % 6.8 %; Hematocrit 33 % (35-47); Hemoglobin 10.7 g/dL (12.0-16.0); Lymphocyte % 18.2 %; Mean Corpuscular HGB Conc 32 g/dL (31-36); Mean Corpuscular Hemoglobin 29 pg (27-31); Mean Corpuscular Volume 89 fL (80-97); Mean Platelet Volume 10.5 fL (7.4-10.4); Nucleated Red Blood Cells % 0.1; Platelet Count 191 10^3/uL (150-450); Red Blood Count 3.74 10^6 /uL (3.70-4.87); Red Cell Distribution Width 15 % (10-15); White Blood Count 5.9 10^3/uL (3.5-10.8)
[2019-09-17] MEDS ORDERED: cefTRIAXone(*) 1 GM in NS 0.9% 50 ML* 50 ML IVPB ONE (07:00)
[2019-09-17] MEDS: Insulin LISPRO* 1 UNITS UNIT SUBCUT SCH ×2 (07:34→12:52)
[2019-09-17] MEDS ORDERED: Midazolam* 1 MG/ML 2 ML VIAL (2 MG) ONE (07:35)
[2019-09-17] MEDS ORDERED: fentaNYL* 50 MCG/ML 2 ML VIAL (100 MCG VIAL) ONE (07:35)
[2019-09-17] MEDS ORDERED: cefTRIAXone(*) 1 GM ADVAN/BAG ONE (07:50)
[2019-09-17] MEDS ORDERED: Iohexol 180 (CONTRAST) 10 ML SDV IV ONE (08:00)
--- NOTE | 2019-09-17 08:01 | PN ---
Subjective Date of Service: 09/17/19 Interval History: HD3 on 09/17 74 F PMH HFrEF (EF40-45%), Afib on AC (LBBB), IDDM, insomnia on chronic benzo, CAD s/p PCI, HTN, HLD, who presented 09/15 with c/o R flank pain and hematuria in the setting of frequent UTIS, was found to have obstructing calculus at R UPJ with hydronephorsis and MARY (w/ associated hyperK). Overnight, no acute events, VSS, her OR procedure was postponed on 09/16 for AM and she is there this AM Labs K normalized, mild Cr Bump Seen just after procedure, doing well without complications, eager for d/c, family at beside, without complaints. Objective Active Medications: Alprazolam (Xanax Tab*) 0.5 mg PO BEDTIME [facility] [place] Last Admin: 09/16/19 21:17 Dose: 0.5 mg Amiloride HCl (Midamor Tab*) 5 mg PO DAILY [facility] [place] Last Admin: 09/16/19 08:39 Dose: 5 mg Amlodipine Besylate (Norvasc Tab*) 10 mg PO QAM [facility] [place] Last Admin: 09/16/19 08:38 Dose: 10 mg Aspirin ([facility]in Ec Tab*) [facility] Last Admin: 09/16/19 08:38 Dose: 81 mg Cholecalciferol (Vitamin D Tab*) 1,000 units PO QAM [facility] [place] Last Admin: 09/16/19 08:39 Dose: 1,000 units Cyanocobalamin (Vitamin B12 Tab*) [facility] [place] Last Admin: 09/16/19 08:39 Dose: 1,000 mcg Dextrose (D50w Syringe 50 Ml*) 25 gm IV PUSH ONCE PRN PRN Reason: FS < 60 Dextrose (Dextrose 50% Vial 50 Ml*) 25 ml IV PUSH .FOR FS < 60 - SS PRN PRN Reason: FS < 60 Dofetilide (Tikosyn Cap*) 500 mcg PO BID [facility] [place] Last Admin: 09/16/19 21:16 Dose: 500 mcg Ferrous Gluconate (Fergon Tab*) 324 mg PO DAILY [facility] [place] Last Admin: 09/16/19 08:38 Dose: 324 mg Gemfibrozil (Lopid Tab*) 600 mg PO BID [facility] [place] Last Admin: 09/16/19 21:15 Dose: 600 mg Insulin Glargine (Lantus(*)) 20 units SUBCUT QPM [facility] [place] Last Admin: 09/16/19 18:44 Dose: 20 units Insulin Human Lispro (Humalog*) 0 units SUBCUT ACHS [facility] [place]; Protocol Last Admin: 09/17/19 07:34 Dose: Not Given Isosorbide Mononitrate (Isosorbide Mononitrate (Nf)) 20 mg PO BID [facility] [place]; Protocol Last Admin: 09/16/19 21:14 Dose: 20 mg Magnesium Chloride (Slow Mag Ec Tab*) 64 mg PO TID [facility] [place] Last Admin: 09/16/19 21:17 Dose: 64 mg Metoprolol Succinate (Toprol Xl Tab*) 75 mg PO BID [facility] [place] Last Admin: 09/16/19 21:16 Dose: 75 mg Morphine Sulfate (Morphine Inj (Syringe))*) 2 mg IV Q4H PRN PRN Reason: PAIN - MILD Last Admin: 09/16/19 16:13 Dose: 2 mg Rosuvastatin Calcium (Crestor (Nf)) 20 mg PO BEDTIME [facility] [place] Last Admin: 09/16/19 21:17 Dose: 20 mg Vital Signs - 8 hr 09/17/19 03:31 Temperature 98.0 F Pulse Rate 61 Respiratory 16 Rate Blood Pressure 106/59 (mmHg) O2 Sat by Pulse 93 Oximetry Oxygen Devices in Use Now: None Appearance: Pleasant well appearing woman Ears/Nose/Mouth/Throat: NL Teeth, Lips, Gums Neck: NL Appearance and Movements; NL JVP, Trachea Midline Respiratory: Clear to Auscultation Cardiovascular: RRR Abdominal: NL Sounds; No Tenderness; No Distention, No Hepatosplenomegaly Lymphatic: No Cervical Adenopathy Extremities: No Edema Skin: No Rash or Ulcers Neurological: Alert and Oriented x 3 Result Diagrams: 09/17/19 05:13 09/17/19 05:12 Additional Lab and Data: CTAP: Calculus at R UPJ Assess/Plan/Problems-Billing Assessment: 74 F PMH HFrEF (EF40-45%), Afib on AC (LBBB), IDDM, insomnia on chronic benzo, CAD s/p PCI, HTN, HLD, who presented 09/15 with c/o R flank pain and hematuria in the setting of frequent UTIS, was found to have obstructing calculus at R UPJ with hydronephorsis and MARY (w/ associated hyperK). - Patient Problems (1) Right ureteral calculus Current Visit: Yes Status: Acute Code(s): N20.1 - CALCULUS OF URETER SNOMED Code(s): 70858547 Comment: -Per urology mgmt, may be stable for d/c post procedure -No e/o infection -Associated hydronephrosis (2) MARY (acute kidney injury) Current Visit: Yes Status: Acute Code(s): N17.9 - ACUTE KIDNEY FAILURE, UNSPECIFIED SNOMED Code(s): 56026377 Comment: -Post renal, CTM -Associated HyperK has resolved (3) Afib Current Visit: No Status: Acute Code(s): I48.91 - UNSPECIFIED ATRIAL FIBRILLATION SNOMED Code(s): 87861622 Comment: -Rate/rhytyhm controlled on Dofeletide and Metoprolol, holding AC for procedure -CHADS VASC >3 (4) CAD (coronary artery disease) Current Visit: No Status: Acute Code(s): I25.10 - ATHSCL HEART DISEASE OF [place] CORONARY ARTERY W/O ANG PCTRS SNOMED Code(s): 05388348 Comment: -Hx of PCI. Isosorbide, asa, BB, statin, not on MIKY (5) Hypertension Current Visit: No Status: Acute Code(s): I10 - ESSENTIAL (PRIMARY) HYPERTENSION SNOMED Code(s): 30055151 Comment: -Amilodrie,, isordil, Amlodipine, Toprol (6) Type 2 diabetes mellitus Current Visit: No Status: Chronic Comment: -Holding Metformin, continue insulin (7) Heart failure with reduced ejection fraction Current Visit: Yes Status: Acute Code(s): I50.20 - UNSPECIFIED SYSTOLIC ( CONGESTIVE) HEART FAILURE SNOMED Code(s): 971849215 Comment: -Continue amiloride, BB, asa, statin -Euvolemic (8) Insomnia Current Visit: Yes Status: Acute Code(s): G47.00 - INSOMNIA, UNSPECIFIED SNOMED Code(s): 668311982 Comment: -On alprazolam (9) DVT prophylaxis Current Visit: No Status: Acute Code(s): HZM2492 - SNOMED Code(s): 488719723 Comment: -Rivoraxaban on hold 09/16, may resume post procedure (10) Full code status Current Visit: No Status: Acute Code(s): Z78.9 - OTHER SPECIFIED HEALTH STATUS SNOMED Code(s): 114058808 Status and Disposition: Inpatient for procedure, d/c as urology feels appropriate
[2019-09-17] MEDS ORDERED: Lidocaine 2% PF * 5 ML VIAL ONE (08:06)
[2019-09-17] MEDS ORDERED: Propofol* 10 MG/ML 20 ML BTL ONE (08:06)
[2019-09-17] MEDS ORDERED: KETAMINE HCL* 50 MG/ML 10 ML VIAL ONE (08:06)
[2019-09-17] MEDS: Gemfibrozil TAB* 600 MG PO SCH (08:25)
[2019-09-17] MEDS: aMILoride TAB* 5 MG PO SCH (08:25)
[2019-09-17] MEDS: Ferrous Gluconate TAB* 324 MG TAB PO SCH (08:25)
[2019-09-17] MEDS: Cholecalciferol TAB* 1000 UNITS PO SCH (08:25)
[2019-09-17] MEDS: amLODIPine TAB* 5 MG PO SCH (08:25)
[2019-09-17] MEDS: Cyanocobalamin TAB* 500 MCG PO SCH (08:25)
[2019-09-17] MEDS: Dofetilide CAP* 500 MCG PO SCH (08:25)
[2019-09-17] MEDS: Aspirin EC TAB* 81 MG TAB.EC PO SCH (08:25)
[2019-09-17] MEDS: ISOSORBIDE MONONITRATE 20 MG PO SCH (08:25)
[2019-09-17] MEDS: Magnesium Chloride EC TAB* 64 MG PO SCH ×2 (08:26→13:30)
[2019-09-17] MEDS: Metoprolol Succinate XL TAB* 25 MG PO SCH (08:26)
[2019-09-17] MEDS ORDERED: Naloxone* 0.4 MG/ML 1 ML VIAL IV PRN (09:04)
[2019-09-17] MEDS ORDERED: HYDROcodone/ACETAMIN 5-325 MG* 1 TAB PO PRN (09:04)
[2019-09-17] MEDS ORDERED: Acetaminophen TAB* 325 MG PO PRN (09:04)
[2019-09-17] MEDS ORDERED: oxyCODONE TAB* 5 MG TAB PO PRN (09:04)
[2019-09-17] MEDS ORDERED: fentaNYL* 50 MCG/ML 2 ML VIAL (100 MCG VIAL) IV PRN (09:04)
[2019-09-17] MEDS ORDERED: DiMENhydriNATE IV* 50 MG/ML VIAL IV PUSH PRN (09:04)
[2019-09-17] MEDS ORDERED: Ondansetron INJ* 2 MG/ML VIAL ONE (09:39)
--- NOTE | 2019-09-17 10:17 | OP ---
OPERATIVE REPORT: DATE OF OPERATION: 09/17/19 DATE OF : 49 SURGEON: Jose Juan Manuel MD ANESTHESIOLOGIST: Dr. Joshua. ANESTHESIA: IV sedation with MAC. PRE-OP DIAGNOSIS: Proximal right ureteral calculus (8 mm). POST-OP DIAGNOSIS: Proximal right ureteral calculus (8 mm). OPERATIVE PROCEDURE: 1. Cystoscopy. 2. Right retrograde pyelography. 3. Insertion of right ureteral stent (6 Chinese). INDICATION FOR PROCEDURE: Ms. Brown is a 74-year-old white female, who had recurrent episodes of right flank pain and who was admitted 2 days ago with right renal colic secondary to an 8 mm calculus at the right ureteropelvic junction. There was no associated fever or chills. The plan was to insert a right ureteral stent on admission, however, she was found to have hyperkalemia without associated decreased renal function. The serum potassium is down to normal, but her serum Cr today is up to 1.6. the patient is brought in for right ureteral stent insertion in preparation for definitive treatment of the stone. PATHOLOGY: At cystoscopy, the bladder mucosa looked normal. There were no suspicious bladder lesions seen. There was a single orthotopic orifice on each side. At fluoroscopy, a radiopaque calculus could not be clearly seen at the right ureteropelvic junction or the proximal ureteral. Right retrograde pyelography showed moderate right hydroureteronephrosis. There was strong efflux of concentrated urine that drained out of the right orifice following the introduction of the guidewire. DESCRIPTION OF PROCEDURE: With the patient in the lithotomy position and under IV sedation with anesthesia monitoring, the patient was prepped and draped for cystoscopy. Cystoscopy was performed, the bladder was carefully inspected and the above findings were noted. A flexible-tip guidewire was then introduced into the right orifice and positioned in the area of the renal pelvis. Retrograde pyelography was then performed. The appearance of the collecting system was suggestive of either a double collecting system with the contrast delineating the lower pole system or a ptotic kidney. With the guidewire in place, careful inspection of the right trigone was performed looking for another orifice, and none was found. Concentrated urine was noted draining briskly from the orifice where the guidewire was placed. After performing a retrograde pyelography, a size 7-Chinese stent was then placed with the proximal end coiling in the renal pelvis and the distal end coiling inside the bladder. The patient tolerated the procedure well and left the operating room in good condition. The plan is to obtain a KUB post op. Definitive treatment of the stone will depend upon the x-ray findings. [id number]/CPS #: [id number] MTDD
[2019-09-17] MEDS ORDERED: Lactated Ringers 1000 ML Bag* 1,000 ML IV SCH (12:00)
[2019-09-17 13:35] VITALS: BP 123/63
--- NOTE | 2019-09-17 18:05 | DS ---
CC: Peggy Hurst NP DISCHARGE SUMMARY: DATE OF ADMISSION: 09/15/19 DATE OF DISCHARGE: 09/17/19 PRIMARY CARE PROVIDER: Peggy Hurst NP DISPOSITION AT THE TIME OF DISCHARGE: Stable to be discharged to home. PRIMARY DIAGNOSES: 1. Obstructing right ureteral stone with associated hydronephrosis. 2. Acute kidney injury. SECONDARY DIAGNOSES: 1. Heart failure with reduced ejection fraction. 2. Atrial fibrillation, on anticoagulation. 3. Insulin-dependent diabetes. 4. Insomnia, on chronic benzodiazepines. 5. Coronary artery disease, status post PCI. 6. Hypertension. 7. Hyperlipidemia. 8. History of frequent urinary tract infections. MEDICATIONS AT THE TIME OF DISCHARGE: 1. Alprazolam 0.5 mg p.o. q.h.s. 2. Amiloride 5 mg p.o. q. day. 3. Amlodipine 10 mg p.o. q.a.m. 4. Vitamin D 1000 units p.o. q.a.m. 5. Cyanocobalamin 1000 mcg sublingual q.a.m. 6. Tikosyn 500 mcg p.o. b.i.d. 7. Ferrous gluconate 324 mg p.o. daily. 8. Gemfibrozil 600 mg p.o. b.i.d. 9. Levemir 28 to 32 units subcutaneous q.p.m. 10. Isosorbide mononitrate 20 mg p.o. b.i.d. 11. Magnesium chloride 286 mg p.o. t.i.d. 12. Metoprolol succinate 75 mg p.o. b.i.d. 13. Rosuvastatin 20 mg p.o. q.h.s. 14. Aspirin 81 mg p.o. q.a.m. 15. Rivaroxaban 20 mg p.o. q.a.m. Medication changes on this hospitalization were the instructions to hold metformin for 1 week status post discharge. HISTORY OF PRESENT ILLNESS AND HOSPITAL COURSE: A 74-year-old female with above past medical history , presented on 09/15/19 to the emergency room with complaint of right-sided back pain that radiated t o her right flank. She said it woke her up from sleep and was colicky in nature, was coming and misti g. She began to feel nauseous secondary to this pain and also reports that it was accompanied with c hills and hematuria and thus she decided to present to the emergency room. In the ER, her vital sign s were stable. Her labs were notable for mildly elevated creatinine at 1.12. Urinalysis showed bloo d. CT scan of the abdomen and pelvis showed a 1.4 x 1 cm calculus in the right proximal ureter just distal to the ureteropelvic junction and other nonobstructing calculi are seen in the right renal tani yx. The left kidney showed no hydronephrosis and the right kidney did show progressive nephrosis. U percyogy was consulted and asked the hospitalist team to admit the patient and her hospital course by ann marie fuentes is as follows: 1. Obstructing right ureteral calculus at the right UPJ with associated hydronephrosis. The patient underwent retrograde pyelogram on 09/17/19 and she is status post stent placement and successful dec ompression in the operating room with Dr. Manuel. He plans to follow up with the patient in the of [facility] on 09/19/19. 2. Hyperkalemia. The patient had mild hyperkalemia on admission. She was treated with patiromer wi th resolution of symptoms. Her creatinine did continue to bump over the course of this hospitalizati on, though she is draining good urine and was noted to have successful intraoperative procedure. Her potassium was 4.3 on the day of discharge. 3. MARY. This was thought to be postrenal. The associated hyperkalemia resolved. She is draining ur ine successfully and had a successful procedure. Because of her MARY, she was asked to hold her metfo rmin for 1 week status post discharge. It could be resumed with repeat followup BMP. 4. AFib. She is on rate and rhythm control with dofetilide and metoprolol. Her rivaroxaban was hel d for the procedure and can be resumed on the day of discharge. Her CHADS-VASc score is greater than 3. 5. CAD. She has history of PCI and she was kept on her isosorbide, aspirin, beta- brandon, statin. She is not on an MIKY at this time. 6. Hypertension. Her amiloride, Isordil, amlodipine, and Toprol can be continued. 7. Type 2 diabetes. Again, holding metformin, but her insulin was continued. 8. Heart failure with reduced ejection fraction. She had no evidence of decompensation. 9. Insomnia. Her home alprazolam was continued. On the day of discharge, the patient is ambulating, tolerating diet, voiding freely. Abdominal x-ray shows appropriate placement of stent and the procedure was successful. She was cleared by Urology t o be discharged to home. She has no evidence of infection. Plan of care was discussed with the rosenda ent and her family. They have no further questions. They are following up with Dr. Manuel on 09/19. LABS AND STUDIES DONE DURING THIS HOSPITALIZATION: Labs on the day of discharge, 09/17/19: White bl ood cell count 5.9, hemoglobin 10.7, hematocrit 33, platelets 191. Sodium 137, potassium 3.7, chlori de 110, carbon dioxide 19, anion gap 8, BUN 22, creatinine 1.58, glucose 97, calcium 9.2. Imaging done during this hospitalization includes abdomen and pelvis CT on 09/15/19 that showed 1 cm obstructing ureteral stone just past the UPJ and associated right hydronephrosis. EKG shows normal sinus rhythm with no active signs of ischemia. On 09/17/19, retrograde pyelogram was done, which showed successful stent placement. An abdominal x-ray on 09/17/19 confirms appropriate stent placement. MENAGERIE CARETAKER DURING THIS HOSPITALIZATION: Included Dr. Manuel of Urology and his care was appreciate d. ITEMS TO FOLLOW UP ON STATUS POST DISCHARGE: 1. MARY. The patient needs a repeat BMP to ensure her creatinine is improving. She can restart her m etformin if creatinine is back to baseline. 2. Right ureteral stone. She needs followup with Urology for definitive stone management now that o bstructing stone is resolved and she has followup with Dr. Manuel as per above. TIME SPENT: Thirty-five minutes was spent on the planning of this discharge with over half of that w as spent directly at the bedside of the patient providing direct patient care and counseling the fami ly. They have no further questions. If there are any questions about the care of this patient during this hospitalization, please do not hesitate to reach out and contact me, my cellphone is [phone]. This discharge summary is a dist illation of a 3-day hospitalization and does not reflect all the events that happened, and for furthe r information, you can contact the medical chart. Physical exam was performed on the day of discharg e and can be found in the progress note. [id number]/CPS #: [id number]
== END 2019-09-17 15:00 | disposition home or self-care (01) | DRG 660 ==
LOC: ED 10:14 → SSU 13:19 → OBSVTOIN 09-16 11:00
PROVIDERS: ADMIT Internal Medicine; ATTEND Internal Medicine
PROC: 0T768DZ Dilation of Right Ureter with Intraluminal Device, Via Natural or Artificial Opening Endoscopic (ICD-10-PCS; principal; 2019-09-16)
PROC: BT1DZZZ Fluoroscopy of Right Kidney, Ureter and Bladder (ICD-10-PCS; 2019-09-16)
DX: N13.2 Hydronephrosis with renal and ureteral calculous obstruction (principal); I50.42 Chronic combined systolic (congestive) and diastolic (congestive) heart failure; E87.5 Hyperkalemia; E11.9 Type 2 diabetes mellitus without complications; I48.91 Unspecified atrial fibrillation; I44.7 Left bundle-branch block, unspecified; G47.00 Insomnia, unspecified; I25.10 Atherosclerotic heart disease of native coronary artery without angina pectoris; I11.0 Hypertensive heart disease with heart failure; E78.5 Hyperlipidemia, unspecified; N17.9 Acute kidney failure, unspecified; E78.00 Pure hypercholesterolemia, unspecified; J45.909 Unspecified asthma, uncomplicated; K21.9 Gastro-esophageal reflux disease without esophagitis; M19.90 Unspecified osteoarthritis, unspecified site; F41.9 Anxiety disorder, unspecified; D64.9 Anemia, unspecified; Z79.4 Long term (current) use of insulin; Z79.899 Other long term (current) drug therapy; Z95.5 Presence of coronary angioplasty implant and graft; Z87.440 Personal history of urinary (tract) infections; Z91.048 Other nonmedicinal substance allergy status; I25.2 Old myocardial infarction; Z79.82 Long term (current) use of aspirin; Z79.01 Long term (current) use of anticoagulants
CPT/HCPCS: 36415; 74018; 74176; 74420; 80048; 80051; 80053; 81003; 81015; 82565; 83690; 83735; 85025; 86140; 93005; 96374; 99284; A9270-GY; C1876; G0378; J0696; J2250; J2270; J2405; J2704; J3010; J3475

== ENCOUNTER 2019-10-26 06:46 | Day surgery (SDC) | payer MEDICARE ==
--- NOTE | 2019-10-19 00:59 | HP ---
CC: Peggy Hurst NP * HISTORY AND PHYSICAL: DATE OF PLANNED ADMISSION AND SURGERY: 10/26/19 HISTORY OF PRESENT ILLNESS: Ms. Brown is a 74-year-old white female who is admitted with a right renal calculus, status post placement of a right ureteral stent for cystoscopy, right ureteroscopy, laser lithotripsy and right ureteral stent exchange. Please refer to the detailed history and physical for this patient's admission on 09/16/19. Mrs. Brown presented to the emergency room on 09/16/19 with symptoms of right renal colic. She was worked up and had a non-contrast CT of the abdomen and pelvis, which showed a 1.2 cm obstructing calculus at the right ureteropelvic junction. Her surgery was delayed because of hyperkalemia, which was corrected and the patient then underwent a cystoscopy and insertion of right ureteral stent with resolution of her symptoms. A radio-opaque calculus was not visualized at fluoroscopy and at the KUB done after the placement of the stent. The patient was then evaluated in the office and had a renal ultrasound, which showed a 1 cm calculus in the lower pole calyx of the right kidney, strongly suggestive that the calculus is radiolucent and most likely is uric acid in composition. The patient is now admitted for cystoscopy, right ureteroscopy, laser lithotripsy and right ureteral stent exchange. PAST MEDICAL HISTORY AND SYSTEM REVIEW: The patient gives history of mixed systolic and diastolic heart failure with an ejection fraction of 45%. She has insulin dependent diabetes mellitus, coronary artery disease, hypertension, and left bundle branch block. MEDICATIONS: She is maintained on the following P.O. medications: 1. Alprazolam 0.5 mg at bedtime. 2. Amiloride 5 mg daily. 3. Amlodipine 10 mg daily. 4. Aspirin 81 mg daily. 5. Cholecalciferol 1000 units daily. 6. Tikosyn 500 mcg p.o. twice a day. 7. Insulin with a sliding scale. 8. Isosorbide 20 mg p.o. b.i.d. 9. Metformin 1000 mg b.i.d. and 75 mg b.i.d. 10. Rosuvastatin 20 mg at bedtime. 11. Rivaroxaban 20 mg daily. ALLERGIES: She reports being allergic to ADHESIVE TAPE, but not to any medications FAMILY HISTORY: Positive for coronary artery disease in her father and her brother. Diabetes mellitus in a brother. SOCIAL HISTORY: The patient is a nonsmoker. She occasionally drinks alcohol. She does not use any drugs. MENTAL HEALTH HISTORY: Negative. PHYSICAL EXAMINATION GENERAL: She is a pleasant, white female, who looks her age. VITAL SIGNS: Blood pressure 102/60, pulse of 56. LUNGS: Clear. HEART: Regular and rhythmic. No murmurs. ABDOMEN: Soft. No masses, no tenderness, and no CVA tenderness. IMPRESSION: Right renal calculus seen on CT and on ultrasound, but not seen on KUB or fluoroscopy, strongly suggestive it is uric acid in composition. PLAN: Plan is for cystoscopy plus right ureteroscopy, and if the calculus is identified, laser lithotripsy, and stent exchange. If the calculus cannot be visualized, then the patient will be placed on urinary alkalinization, keeping the stent in place to try to dissolve the stone. I discussed the above plans with the patient. All her questions were answered. [id number]/CPS #: [id number] YOLANDA
[~2019-10-26 06:46] MED LIST changes: -Acetaminophen TAB* 325 MG PO PRN; -Buffered Lidocaine 0.9% SYRIN* 5 ML/SYR SYRINGE INTRADERM ONE; +Buffered Lidocaine 1% SYRIN* 1 ML/SYRINGE INTRADERM ONE; +Lactated Ringers 1000 ML Bag* 1,000 ML IV SCH; +NS 0.9% 1000 ML** 1,000 ML IV SCH
[2019-10-26] MEDS ORDERED: cefTRIAXone(*) 2 GM ADDV.VIAL IVPB ONE (07:44)
[2019-10-26] MEDS ORDERED: fentaNYL* 50 MCG/ML 2 ML VIAL (100 MCG VIAL) ONE (09:13)
[2019-10-26] MEDS ORDERED: Propofol* 10 MG/ML 20 ML BTL ONE (09:13)
[2019-10-26] MEDS ORDERED: Lidocaine 2% PF * 5 ML VIAL ONE (09:13)
[2019-10-26] MEDS ORDERED: Iohexol 180 (CONTRAST) 10 ML SDV IV ONE (10:00)
[2019-10-26] MEDS ORDERED: Ondansetron INJ* 2 MG/ML VIAL ONE (11:27)
[2019-10-26] MEDS ORDERED: DiMENhydriNATE IV* 50 MG/ML VIAL IV PUSH PRN (12:44)
[2019-10-26] MEDS ORDERED: Naloxone* 0.4 MG/ML 1 ML VIAL IV PRN (12:44)
[2019-10-26 14:07] VITALS: BP 120/69
--- NOTE | 2019-10-26 21:34 | OP ---
CC: Peggy Hurst NP * DATE OF OPERATION: 10/26/19 - [facility] DATE OF : 49 SURGEON: Jose Juan Manuel MD ANESTHESIOLOGIST: Dr. Montes. ANESTHESIA: General. PRE-OP DIAGNOSES: 1. Right renal calculi. 2. Status post placement of right ureteral stent. POST-OP DIAGNOSES: 1. Right renal calculi. 2. Status post placement of right ureteral stent. OPERATIVE PROCEDURE: 1. Cystoscopy. 2. Right ureteroscopy and pyeloscopy. 3. Laser lithotripsy of right renal calculi. 4. Right retrograde pyelography and insertion of right ureteral stent (7-Guinean ). INDICATION FOR PROCEDURE: Mrs. Brown is a 74-year-old white female who presented 1 month ago with right renal colic and was noted to have a 1.2 cm obstructing calculus at the right ureteropelvic junction and another 6 mm nonobstructing calculus in the lower pole calyx of the right kidney. The patient had urgent placement of a right ureteral stent. Post-operative KUB failed to show the renal calculi. Renal ultrasound showed a 1-cm calculus in the lower pole calyx of the Rt kidney. Because of the above history and the fact that that calculus is not visualized on x-ray, the patient is not candidate for shockwave lithotripsy. The patient is brought in for the above procedure. PATHOLOGY: At cystoscopy, the bladder mucosa looked normal. The distal limb of the stent was seen coming from the right ureteral orifice. There was the expected edema of the bladder mucosa adjacent to the stent. Upon right ureteroscopy, the ureter looked normal. There was a 1.2-cm calculus that had the gross appearance of either a calcium phosphate stone or a uric acid stone located in a upper pole infundibulum. Another 6-mm calculus of the same appearance was also noted in a mid pole calyx. DESCRIPTION OF PROCEDURE: After successful general anesthesia, the patient was placed in the lithotomy position and was prepped and draped for a cystoscopy. Cystoscopy was performed. The right ureteral stent was removed and a hybrid guidewire was introduced into the right ureter and positioned in the area of the renal pelvis. A size 21-16-Kjxpnv access sheath was then fed on top of the guidewire and positioned in the proximal third of the ureter. The flexible ureteroscope was passed inside the access sheath and introduced into the renal pelvis. The calices were inspected and the larger calculus was noted in an upper pole infundibulum. Using the 300 micron laser fiber, the stone was fragmented into smaller fragments. The 6-mm calculus was also visualized and was also fragmented. The stone fragments were felt to be small enough that they should pass spontaneously. A semi-rigid ureteroscopy was also performed to check for any ureteral stone fragments and none were noted. At the completion of the procedure, the retrograde pyelography was performed and a size 7-Guinean stent was then placed with the proximal end-coiling in renal pelvis and the distal end-coiling inside the bladder. There was good drainage of contrast and no extravasation. The patient tolerated the procedure well and left the operating room in good condition. The plan is to see the patient back in the office in about 10 days and the stent will be removed. [id number]/CPS #: [id number] MTDD
== END 2019-10-26 14:05 | disposition home or self-care (01) ==
LOC: OR 06:46
PROVIDERS: ATTEND Urology
DX: N20.0 Calculus of kidney (principal); E11.9 Type 2 diabetes mellitus without complications; Z79.4 Long term (current) use of insulin; Z79.84 Long term (current) use of oral 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; I50.9 Heart failure, unspecified; I25.10 Atherosclerotic heart disease of native coronary artery without angina pectoris; I11.0 Hypertensive heart disease with heart failure; I44.7 Left bundle-branch block, unspecified; E03.9 Hypothyroidism, unspecified; I25.2 Old myocardial infarction
CPT/HCPCS: 36415; 74420; 84132; C1876; J0696; J2405; J2704; J3010

== ENCOUNTER 2019-12-16 05:37 | Day surgery (SDC) | payer MEDICARE ==
--- NOTE | 2019-12-14 22:56 | HP ---
HISTORY AND PHYSICAL: DATE OF PLANNED ADMISSION AND SURGERY: 12/16/19 HISTORY OF PRESENT ILLNESS: Ms. Brown is a 74-year-old white female who is admitted with right ureteral calculus, for cystoscopy, right ureteroscopy, laser lithotripsy, and right ureteral stent insertion. Ms. Brown presented to the emergency room on 09/16/19 with right renal colic. She had a noncontrast CT of the abdomen and pelvis, which showed a 1.2 cm obstructing calculus at the right ureteropelvic junction. She had a right ureteral stent insertion. Postoperative KUB failed to show the calculus and renal ultrasound showed the stone to be in the collecting system of the right kidney. On 10/26/19, she underwent a right ureteroscopy and pyeloscopy. The calculus was identified in the collecting system and was fragmented with the laser energy. She had ureteral stent placed postoperatively. The stent was removed about 2 weeks later. The patient did pass several stone fragments, which looked calcium oxalate. She has been essentially asymptomatic. She had a follow-up renal ultrasound 2 days prior to this admission and the study showed moderate right hydronephrosis and there was an 8 mm cluster of calculi in the proximal to mid right ureter. There were good bilateral ureteral jets. Her urinalysis was positive for blood and negative for infection. With the above findings with the calculi still being in the ureter about 5 weeks after the stent removal and the presence of hydronephrosis, the plan is for right ureteroscopy and endoscopic extraction of the calculi with stent placement. PAST MEDICAL HISTORY AND SYSTEM REVIEW: She has a history of mixed systolic and diastolic heart failure, but she has an ejection fraction of 45%. She is insulin dependent diabetic. She is hypertensive and has left bundle-branch block. She had tolerated the 2 procedures well adequately. MEDICATIONS: The patient is maintained on: 1. Alprazolam 0.5 mg p.o. at bedtime. 2. Amiloride 5 mg p.o. daily, 3. Amlodipine 10 mg p.o. daily. 4. Aspirin 81 mg daily. 5. Tikosyn 500 mcg p.o. twice a day. 6. Cholecalciferol 1000 units daily. 7. Insulin with a sliding scale. 8. Isosorbide 20 mg twice a day. 9. Metformin 1000 mg twice a day. 10. Rosuvastatin 20 mg at bedtime. 11. Rivaroxaban 20 mg daily. 12. She is also on Xarelto 20 mg daily. The patient was asked not to discontinue the Xarelto prior to the procedure. ALLERGIES: She denies any allergies to medications. FAMILY HISTORY: Father has coronary artery disease and abdominal aortic aneurysm. She had 1 brother with an [place], 1 brother with diabetes mellitus and coronary artery disease. No family history of malignancy. SOCIAL HISTORY: The patient is a nonsmoker. She drinks alcohol very sparingly. She does not use recreational drugs. 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 She denies any mental health problems. PHYSICAL EXAMINATION GENERAL: Moderately overweight white female, who looks her age. VITAL SIGNS: Blood pressure 120/70, pulse of 70. LUNGS: Clear. HEART: Regular and rhythmic. No murmurs. ABDOMEN: Soft. No masses, no tenderness, and no CVA tenderness. Extremities: Show no edema. IMPRESSION: An 8 mm calculus in the proximal to mid right ureter with associated moderate hydronephrosis. Coronary artery disease, diabetes mellitus, hypertension, left bundle-branch block. PLAN: Plan is for cystoscopy, right ureteroscopy, laser lithotripsy, and right ureteral stent insertion. Because of the past history of electrolyte imbalance, the stat electrolytes will be obtained at her admission. [id number]/[facility] #: [id number] YOLANDA
[~2019-12-16 05:37] MED LIST changes: -Lactated Ringers 1000 ML Bag* 1,000 ML IV SCH; -NS 0.9% 1000 ML** 1,000 ML IV SCH
[2019-12-16] MEDS ORDERED: cefTRIAXone(*) 1 GM ADVAN/BAG ONE (05:48)
[2019-12-16] MEDS ORDERED: Buffered Lidocaine 1% SYRIN* 1 ML/SYRINGE INTRADERM ONE (05:48)
[2019-12-16] MEDS ORDERED: Lactated Ringers 1000 ML Bag* 1,000 ML IV SCH (06:00)
[2019-12-16] MEDS ORDERED: Iohexol 180 (CONTRAST) 10 ML SDV IV ONE (06:19)
[2019-12-16] MEDS ORDERED: Ondansetron INJ* 2 MG/ML VIAL ONE (06:24)
[2019-12-16] MEDS ORDERED: Sterile Water for Inj* 10 ML ONE (06:24)
[2019-12-16] MEDS ORDERED: Propofol* 10 MG/ML 20 ML BTL ONE (06:24)
[2019-12-16] MEDS ORDERED: EPHEDrine (Pressors)* 50 MG/ML VIAL ONE (06:24)
[2019-12-16] MEDS ORDERED: Glycopyrrolate IV* 0.2 MG/ML 1 ML VIAL ONE (06:24)
[2019-12-16] MEDS ORDERED: Dexamethasone IV* 4 MG/ML 1 ML (4 MG) ONE (06:24)
[2019-12-16] MEDS ORDERED: fentaNYL* 50 MCG/ML 2 ML VIAL (100 MCG VIAL) ONE (06:25)
[2019-12-16 07:03] LABS: BUN/Creatinine Ratio 17.1 (8-20); Calcium 9.8 mg/dL (8.6-10.3); EGFR African American 42.6 (>60); EGFR Non-African American 35.2 (>60)
[2019-12-16] MEDS ORDERED: Rocuronium* 10 MG/ML VIAL ONE (07:29)
[2019-12-16] MEDS ORDERED: Sugammadex * 200 MG/2 ML VIAL IV PUSH ONE (07:40)
[2019-12-16] MEDS ORDERED: Naloxone* 0.4 MG/ML 1 ML VIAL IV PRN (07:56)
[2019-12-16 09:36] VITALS: BP 105/67
--- NOTE | 2019-12-16 13:17 | OP ---
DATE OF OPERATION: 12/16/19 [facility] DATE OF : 49 SURGEON: Jose Juan Manuel MD. ANESTHESIOLOGIST: Dr. Carmona. ANESTHESIA: General anesthesia. PRE-OP DIAGNOSIS: Proximal right ureteral calculus. POST-OP DIAGNOSIS: Proximal right ureteral calculus. OPERATIVE PROCEDURE: 1. Cystoscopy. 2. Right ureteroscopy and pyeloscopy. 3. Laser lithotripsy of right ureteral calculus. 4. Right retrograde pyelography and right ureteral stent exchange (6-Danish). INDICATION FOR PROCEDURE: Ms. Brown is a 74-year-old white female who had a minimally radiopaque 1 cm right renal calculus. It was previously partially treated with pyeloscopy and laser lithotripsy. The stent was removed and the stone fragments dropped and one of the fragments measuring about 7 mm was impacted in the proximal right ureter associated with moderate right hydronephrosis. The patient is brought in for lithotripsy of the right ureteral calculus. PATHOLOGY: At cystoscopy, the bladder mucosa looked normal. There were no suspicious bladder lesions seen. There was a cystocele. The ureteral orifices looked normal. Upon right ureteroscopy, an 8 mm calculus that was partially treated with a laser was noted in the proximal ureter about 4 or 5 cm below the level of the ureteropelvic junction. The calculus had the gross appearance of calcium phosphate stone. Moderate degree of proximal hydronephrosis was noted. Because the patient is a high cardiac risk and has been maintained on blood thinners with Xarelto, this was not discontinued preoperatively. DESCRIPTION OF PROCEDURE: After successful general anesthesia, the patient was placed in the lithotomy position and was prepped and draped for a cystoscopy. Cystoscopy was performed. The bladder was carefully inspected and the above findings were noted. A flexible-tip hybrid guidewire was introduced into the right orifice and passed without difficulty into the renal pelvis. A size 6.5 semi-rigid ureteroscope was then introduced inside the bladder. A flexible-tip basket was introduced through the port of the ureteroscope and the flexible tip was then introduced inside the right ureter alongside the guidewire. That allowed the atraumatic introduction of the ureteroscope inside the ureter. The ureteroscope was then passed without difficulty, without trauma , all the way up into the proximal ureter where the calculus was identified. The basket was then introduced beyond the stone and the stone was engaged inside the basket to avoid its proximal migration. A size 550 micron laser fiber was then introduced through the other port of the ureteroscope. The stone was well visualized with the laser fiber on it. The stone was then fragmented using the laser energy. It was partially broken; however, during the lasering, the stone as it was getting smaller escaped from the basket and migrated proximally. It was then followed inside the renal pelvis; however, there was poor visualization because of oozing of blood from the ureter, secondary to the Xarelto, making the visualization of the residual fragment not possible to identify. Fluoroscopy failed to show the location of the stone. The bloody urine renal pelvis was aspirated through the ureteroscope and still that did not help localizing the stone. The ureteroscope was then removed and the whole ureter was inspected and it looked intact without evidence of any injury. The cystoscope was reintroduced over the guidewire. Retrograde pyelography was performed starting in the distal ureter visualizing the whole ureter and collecting system and showing no evidence of any extravasation or ureteral narrowing. A size 6-Danish stent was then placed with the proximal end coiling in the renal pelvis and the distal end coiling inside the bladder. There was good drainage of contrast from the kidney and no extravasation. The patient tolerated the procedure well and left the operating room in good condition. I am expecting that the stone was broken into smaller pieces and I expect them to pass spontaneously following the stent removal. [id number]/[facility]PS #: [id number] YOLANDA
== END 2019-12-16 09:38 | disposition home or self-care (01) ==
LOC: OR 05:37
PROVIDERS: ATTEND Urology
DX: N20.1 Calculus of ureter (principal); E11.8 Type 2 diabetes mellitus with unspecified complications; I25.10 Atherosclerotic heart disease of native coronary artery without angina pectoris; I11.0 Hypertensive heart disease with heart failure; I48.91 Unspecified atrial fibrillation; I50.40 Unspecified combined systolic (congestive) and diastolic (congestive) heart failure; I44.7 Left bundle-branch block, unspecified; E66.9 Obesity, unspecified; Z79.4 Long term (current) use of insulin; Z79.01 Long term (current) use of anticoagulants
CPT/HCPCS: 36415; 74420; 80048; C1876; J0696; J1100; J2405; J2704; J3010

== ENCOUNTER 2019-12-17 15:34 | Emergency (ER) | payer MEDICARE ==
[2019-12-17 15:39] VITALS: BP 149/80
--- OUTSIDE RECORDS SUMMARY | 2019-12-17 15:53 | XMS REPORT | Continuity of Care Document ---
:1945 External Reference #:[id number] Author Name Peggy Hurst RN [facility] Address [address] [place] [address] Care Team Providers Name Role Phone Austin Brumfield - Gastroenterology Care Team Information Funeral Director'S Assistant Ender Daniel MD - Specialist Care Team Information Funeral Director'S Assistant [phone] [facility] Care Team Information Funeral Director'S Assistant [phone] Jose Juan Manuel MD - Urology Care Team Information Funeral Director'S Assistant [phone] Problems Active Problems Provider Date Benign essential [...] Patient has never smoked Smoking Status Reviewed: 11/04/19 Patient has never smoked Allergies, Adverse Reactions, Alerts Description No Known Drug Allergies Medications Active Medications SIG Qnty Indications Ordering Provider Date Slow-Mag 2 Tabs Three Peggy Hurst 10/04/2018 71.5-119mg Times Daily( C, RN [facility] Tablets Nephrology) Freestyle Lite Test for 3 times a 300units E11.65 Peggy Hurst 2017 day glucose C, RN [facility] [employer] Strips testing e11.65 E11.9 Rosuvastatin Calcium Take One Tablet By 90tabs E78.2 Peggy Hurst, 20mg Mouth Every Day RN [facility] [employer] [employer] Tablets Alprazolam 1/2-1 by mouth 90tabs F41.8 Peggy Hurst, 09/16/2017 0.5mg Tablets three times a day RN [facility] [employer] as needed anxiety and/or sleep Xarelto Take One Tablet By 90tabs I25.10 Peggy Hurst, 12/21/2015 20mg Tablets Mouth Every Day as RN [facility] [employer] Directed I49.9 Vitamin B-12 1 by mouth every 90tabs D51.1 Peggy Hurst, 07/20/2015 1000mcg day RN [facility] [employer] Tablets Sub Gemfibrozil Take One Tablet By 180tabs E78.2 Peggy Hurst, 10/30/2014 600mg Tablets Mouth Twice A Day RN [facility] [employer] Levemir Flextouch inject 28-34 units 30ml E11.9 Peggy Hurst, 2013 under the skin RN [facility] [employer] 100Unit/ML Solution every morning,via Pen-Inject sliding scale Metformin HCL take one tablet by 180tabs E11.9 Peggy Hurst, 2013 1000mg mouth two times a RN [facility] [employer] [employer] Tablets day with food, Vitamin D3 qday E55.9 Jeanna Charles MD 11/28/2013 2000Unit Tablets Freestyle Glucometer 1units E11.9 Jeanna Charles MD 11/28/2013 Isosorbide Mononitrate Take One Tablet By 180tabs I25.10 Peggy Hurst , 09/16/2012 20mg Mouth Twice A Day RN [facility] [employer] Tablets E78.2 Onetouch Ultrafine test bs bid at 2units E11.65 Yogi Diamond, 2002 Lancets alternating times and MD Boxes prn- type 2 dm E11.9 Asa One PO Q Day I25.10 Yogi Diamond MD 03/21/2003 81mg Tablets Tikosyn 1 by mouth twice a I25.10 Unknown 500mcg Capsules day I49.9 Iron OTC one by mouth day Unknown 325(65Fe) mg Tablets Metoprolol Succinate take three tablets 540tabs I25.10 Peggy Hurst, ER by mouth every RN [facility] [employer] 25mg Tablets ER 24HR morning and three tablets every evening I10 Amlodipine Besylate Take One Tablet By 90tabs I10 Peggy Hurst, 10mg Mouth Every Day RN [facility] [employer] Tablets Amiloride HCL 1 PO qd Unknown 5mg Tablets Veltassa Once A Week for Unknown 8.4gm Packet potass elev History Medications Nitrofurantoin Monohyd 1 by mouth 20caps N39.0 Nanda Lim 2018 - Macro twice a day MD Dara 09/03/2019 100mg Capsules [d/c keflex] Immunizations CPT Code Status Date Vaccine Lot # [id number] Given 07/26/2019 Fluzone Highdose Age 65 And Over Preservative & Antibiotic Free 06945 Given 06/17/2018 Influenza Vac, Quadrivalent, Split, 0.5mL [id number] Dosage, [place] Use 23107 Given 10/28/2017 Pneumococcal 23 Immunization Adult Or [id number] Immunosuppressed Patient 98709 Given 06/26/2017 Afluria Or Fluvirin Flu Vac Intramuscular 36166 Given 07/17/2016 Influenza Vac, Quadrivalent, Split, 0.5mL [id number] Dosage, Im Use 45805 Given 07/18/2015 Influenza Vac, Quadrivalent, Split, 0.5mL [id number] Dosage, Im Use 29043 Given 04/17/2015 Tdap (Adacel) Ages 7 And Above Only [id number] 01936 Given 01/16/2015 Prevnar 13 Pneumococal Conjugate Vaccine Q2038 Given 07/06/2014 Fluzone Trivalent Immunization [id number] Q2038 Given 07/05/2012 Fluzone Trivalent Immunization [id number] 89168 Given 08/25/2011 Pneumococcal 23 Immunization Adult Or [id number] Immunosuppressed Patient Q2038 Given 07/25/2011 Fluzone Trivalent Immunization [id number] 18317 Given 06/28/2010 Afluria Or Fluvirin Flu Vac Intramuscular [id number] 18545 Given 08/03/2009 Afluria Or Fluvirin Flu Vac Intramuscular [id number] 35967 Given 07/28/2005 Afluria Or Fluvirin Flu Vac Intramuscular [id number] 31574 Given 05/01/2004 Immunization Td 7 Yrs Or Older Vital Signs Date Vital Result Comment 11/04/2019 9:16am Weight 192.00 lb Heart Rate 56 /min BP Systolic 148 mmHg BP Diastolic 73 mmHg Height 64 inches 5'4" BMI (Body Mass Index) 33.0 kg/m2 09/21/2019 1:44pm Weight 186.38 lb Heart Rate 68 /min BP Systolic 154 mmHg BP Diastolic 91 mmHg Height 64 inches 5'4" BMI (Body Mass Index) 32.0 kg/m2 Results Test Acquired Date Facility Test Result H/L Range Note Laboratory test 11/04/2019 [facility] Hemoglobin A1c <pending> finding Laboratory test 11/04/2019 [facility] Iron,Total <pending> finding Vit D 25Oh <pending> Laboratory test 10/26/2019 [facility] Point of Care 109 mg/dL High 70-100 1 finding Glucose Laboratory test 10/26/2019 [facility] Point of Care 142 mg/dL High 70-100 2 finding Glucose Laboratory test 10/26/2019 [facility] Potassium 5.1 mmol/L High 3.5-5.0 finding Laboratory test 09/21/2019 [facility] Magnesium 1.6 mg/dL 1.5-2.7 finding Comprehensive Met 09/21/2019 [facility] Sodium 140 mmol/L 135-146 3 Panel[facility] Potassium 5.7 mmol/L High 3.5-5.2 Chloride# 106 mmol/L 97-110 4 Carbon Dioxide 24 mmol/L 24-34 Calcium 10.3 mg/dL 8.5-10.5 5 Glucose 145 mg/dL High 70-105 BUN 18 mg/dL 6-26 Creatinine 1.0 mg/dL 0.5-1.4 Total Protein 7.1 g/dL 6.0-8.0 Albumin 4.7 g/dL 3.6-4.9 Globulin 2.4 g/dL 2.0-3.5 A/G Ratio 2.0 Ratio 1.0-2.2 Total Bilirubin 0.3 mg/dL 0.1-1.3 Alkaline Phosphatase 69 U/L 24-140 Alt 14 U/L 3-42 Ast 22 U/L 8-42 Anion Gap 10 mmol/L 5-15 6 Female Egfr 58 Low >60 7 Male Egfr 77 >60 8 Laboratory test 09/15/2019 [facility] Magnesium 1.8 mg/dL Low 1.9-2.7 finding Urinalysis Profile 09/15/2019 [facility] Urine Color Yellow Urine Appearance Clear Urine Specific [place] 1.014 Normal 1.010-1.030 Urine pH 5.0 Normal 5-9 Urine Urobilinogen Negative Negative Urine Ketones Negative Negative Urine Protein Negative Negative Urine Leukocytes Negative Negative Urine Blood 2+ Abnormal Negative Urine Nitrite Negative Negative Urine Bilirubin Negative Negative Urine Glucose Negative Negative Urine White Blood Cell Absent Absent Urine Red Blood Cell Trace(0-2/hpf) Absent Urine Bacteria Absent Absent Urine Squamous Epithelial Cell Present Abnormal Absent Urine Uric Acid Crystals Present Abnormal Absent Laboratory test 09/15/2019 [facility] Lipase 42 U/L Normal 11.0-82.0 finding C Reactive Protein 6.11 mg/L Normal <8.01 Comp Metabolic Panel 09/15/2019 [facility] Sodium 135 mmol/L Normal 135-145 Chloride 107 mmol/L Normal 101-111 Co2 Carbon Dioxide 21 mmol/L Low 22-32 Glucose 117 mg/dL High 70-100 Blood Urea Nitrogen 24 mg/dL Normal 6-24 Creatinine 1.09 mg/dL High 0.51-0.95 BUN/Creatinine Ratio 22.0 High 8-20 Calcium 10.7 mg/dL High 8.6-10.3 Total Protein 8.2 g/dL Normal 6.4-8.9 Albumin 4.7 g/dL Normal 3.2-5.2 Globulin 3.5 g/dL Normal 2-4 Albumin/Globulin Ratio 1.3 Normal 1-3 Total Bilirubin 0.30 mg/dL Normal 0.2-1.0 Alkaline Phosphatase 82 U/L Normal 34-104 Alt 12 U/L Normal 7-52 Ast 23 U/L Normal 13-39 Egfr Non- 49.3 >60 Egfr 59.7 >60 9 Potassium 5.9 mmol/L High 3.5-5.0 Anion Gap 7 mmol/L Normal 2-11 CBC Auto Diff 09/15/2019 [facility] White Blood 8.6 10^3/uL Normal 3.5-10.8 Count Red Blood Count 4.39 10^6/uL Normal 3.70-4.87 Hemoglobin 12.9 g/dL Normal 12.0-16.0 Hematocrit 39 % Normal 35-47 Mean Corpuscular Volume 89 fL Normal 80-97 Mean Corpuscular Hemoglobin 30 pg Normal 27-31 Mean Corpuscular HGB Conc 33 g/dL Normal 31-36 Red Cell Distribution Width 15 % Normal 10-15 Platelet Count 287 10^3/uL Normal 150-450 Mean Platelet Volume 9.7 fL Normal 7.4-10.4 Abs Neutrophils 6.6 10^3/uL Normal 1.5-7.7 Abs Lymphocytes 1.2 10^3/uL Normal 1.0-4.8 Abs Monocytes 0.4 10^3/uL Normal 0-0.8 Abs Eosinophils 0.3 10^3/uL Normal 0-0.6 Abs Basophils 0.1 10^3/uL Normal 0-0.2 Abs Nucleated RBC 0.0 10^3/uL Granulocyte % 76.7 % Lymphocyte % 14.3 % Monocyte % 5.0 % Eosinophil % 3.2 % Basophil % 0.8 % Nucleated Red Blood Cells % 0.1 Laboratory test 09/15/2019 [facility] Point of Care 158 mg/dL High 70-100 10 finding Glucose Urine Culture And 08/20/2019 [facility] Urine Culture SEE RESULT 11, 12 Sensitivities BELOW Hemoglobin A1c 06/09/2019 [place] Hemoglobin A1c 6.3 % High 4.1-5.9 Estimated Average Glucose Calc 134 mg/dL 71-140 Comprehensive Met Panel-[facility] 06/09/2019 [facility] Sodium 139 mmol/L 135- 146 13 Potassium 5.7 mmol/L High 3.5-5.2 Chloride# 110 mmol/L 97-110 14 Carbon Dioxide 15 mmol/L Low 24-34 Calcium 10.3 mg/dL 8.5-10.5 15 Glucose 87 mg/dL 70-105 BUN 17 mg/dL 6-26 Creatinine 1.0 mg/dL 0.5-1.4 Total Protein 7.5 g/dL 6.0-8.0 Albumin 4.7 g/dL 3.6-4.9 Globulin 2.8 g/dL 2.0-3.5 A/G Ratio 1.7 Ratio 1.0-2.2 Total Bilirubin 0.3 mg/dL 0.1-1.3 Alkaline Phosphatase 71 U/L 24-140 Alt 21 U/L 3-42 Ast 29 U/L 8-42 Anion Gap 14 mmol/L 5-15 16 Female Egfr 60 Low >60 17 Male Egfr 80 >60 18 Lipid 06/09/2019 [facility] Cholesterol 165 mg/dL 50-199 Triglycerides 73 mg/dL 30-200 HDL 50 mg/dL 35-85 19 Chol/ HDL Ratio 3.3 ratio Low 3.7-5.6 VLDL 15 mg/dL 2-29 LDL (Calc) 101 mg/dL High 20-99 20 1 Designated Broker: [id number] 2 Designated Broker: [id number] 3 Updated reference range on new analyzer [...] that are excreted by the kidneys. 9 Because ethnic data is not always [...] 5 Kidney failure <15 (or dialysis) 10 Designated Broker: [id number] 12 SEE RESULT BELOW Name: NAJMA HUFF : [address]: Paulo Aguayo MD Acct: [id number] Unit: [id number] AGE: 73 Location: [facility] Re08/20/19 SEX: F Status: DEP ER SPEC: [id number] IRENE: 08/20/[address] [facility] [address]: Celena ACUÑA REQ: [id number] RECD: 08/21/19 STATUS:ELISHA DAVIS DR: Peggy Aguayo MD _ SOURCE: URINE SPDESC: ORDERED: Urine Culture COMMENTS: [id number] QUERIES: Urine Source: Random Procedure Result Reported Site Urine Culture Final 08/23/19- 1108 ML No growth of clinically significant organisms * ML - Main Lab . END OF REPORT DEPARTMENT OF PATHOLOGY, [address] [place] [address] Suman Pleitez M.D. Director [facility] # [id number] 13 Updated reference range on new analyzer 14 Updated reference range on new analyzer 15 Updated reference range 02-02-2019 16 Updated Reference Range 17 Concerning GFR Guidelines for Americans: Normal function or mild renal disease, if clinically at risk: >/= 60 mL/min Moderately decreased: 30-59 Severely decreased: 15-29 Renal failure: <15 There is reduced accuracy above 60ml/min/1.73 m squared, but the numeric value may be clinically useful in the near 60 range 18 Concerning GFR Guidelines: Normal function or mild [...] drugs that are excreted by the kidneys. 19 Per NCEP ATP III Guidelines: Results lower than 40 mg/dL are suggestive of increased risk for coronary artery disease. Results > or = to 60 mg/dL are considered a negative risk factor. 20 Per NCEP ATP III Guidelines: Normal Population <130 Patients with medical conditions: CHD/DM Optimal: <100 Borderline high: 130-159 High: 160-189 Very high: >189 Procedures Date Code Description Status 03/22/2019 [id number] Mammogram Completed 12/03/2017 [id number] Diabetic Retinal Eye Exam Completed 01/09/2017 [id number] Bone Mineral Density Test Completed 01/09/2017 [id number] Mammogram Completed 03/02/2015 [id number] Mammogram Completed 09/22/2014 [id number] Bone Mineral Density Test Completed 08/28/2014 [id number] Bone Mineral Density Test Completed 02/02/2014 [id number] Mammogram Completed 01/27/2013 [id number] Mammogram Completed 01/21/2012 [id number] Mammogram Completed 09/09/2011 [id number] Colonoscopy Completed Medical Devices Description No Information Available Encounters Type Date Location Provider Dx Diagnosis Office Visit 09/21/2019 Peggy Chin, E66.9 Obesity, unspecified 1:40p RN [facility] [employer] E83.42 Hypomagnesemia E87.5 Hyperkalemia N18.2 Chronic kidney disease, stage 2 (mild) Z68.32 Body mass index (BMI) 32.0-32.9, adult Office Visit 08/24/2019 11:40a Festus Peter PA N39.0 Urinary tract infection, site not specified R31.9 Hematuria, unspecified N20.0 Calculus of kidney E66.9 Obesity, unspecified Z68.32 Body mass index (BMI) 32.0-32.9, adult Office Visit 06/09/2019 8:00a Peggy Chin, E11.9 Type 2 diabetes RN [facility] mellitus without complications E83.42 Hypomagnesemia E87.5 Hyperkalemia E78.2 Mixed hyperlipidemia Z68.32 Body mass index (BMI) 32.0-32.9, adult Assessments Date Code Description Provider 11/04/2019 Z00.00 Encounter for general adult medical Peggy Hurst RN [facility] examination without abnormal findings 11/04/2019 E66.9 Obesity, unspecified Peggy Hurst, RN [facility] 11/04/2019 Z13.31 Encounter for screening for Peggy Hurst RN [facility] depression 11/04/2019 D50.9 Iron deficiency anemia, unspecified Peggy Hurst, RN [facility] 11/04/2019 E11.65 Type 2 diabetes mellitus with Peggy Hurst, [place] [facility] hyperglycemia 11/04/2019 E55.9 Vitamin D deficiency, unspecified Peggy Hurst, [place] [facility] 11/04/2019 Z12.31 Encounter for screening mammogram for Peggy Hurst, MER[place] [facility] malignant neoplasm of breast 11/04/2019 R31.9 Hematuria, unspecified Peggy Hurst, RN [facility] 11/04/2019 Z13.820 Encounter for screening for Peggy Hurst, [place] [facility] osteoporosis 11/04/2019 Z68.33 Body mass index (BMI) 33.0-33.9, Peggy Hurst, [place] [facility] adult 09/21/2019 E66.9 Obesity, unspecified Peggy Hurst, [place] [facility] 09/21/2019 E83.42 Hypomagnesemia Peggy Hurst, RN [facility] 09/21/2019 E87.5 Hyperkalemia Peggy Hurst, RN [facility] [employer] 09/21/2019 N18.2 Chronic kidney disease, stage 2 Peggy Hurst, [place] [facility] (mild) 09/21/2019 Z68.32 Body mass index (BMI) 32.0-32.9, Peggy Hurst, [place] [facility] adult 09/21/2019 E83.42 Hypomagnesemia [facility] 09/21/2019 E87.5 Hyperkalemia [facility] 08/24/2019 N39.0 Urinary tract infection, site not Festus Rodriguez PA specified 08/24/2019 R31.9 Hematuria, unspecified Festus Rodriguez PA 08/24/2019 N20.0 Kidney stone Festus Rodriguez PA 08/24/2019 E66.9 Obesity, unspecified Festus Rodriguez PA 08/24/2019 Z68.32 Body mass index (BMI) 32.0-32.9, Festus Rodriguez PA adult 06/09/2019 E11.9 Type 2 diabetes mellitus without Peggy Hurst RN [facility] complications 06/09/2019 E83.42 Hypomagnesemia Peggy Hurst, [place] [facility] 06/09/2019 E87.5 Hyperkalemia Peggy Hurst, [place] [facility] 06/09/2019 E78.2 Mixed hyperlipidemia Peggy Hurst RN [facility] 06/09/2019 Z68.32 Body mass index (BMI) 32.0-32.9, Peggy Hurst RN [facility] adult 06/09/2019 E11.9 Type 2 diabetes mellitus without [facility] complications 06/09/2019 E78.2 Mixed hyperlipidemia [facility] Plan of Treatment Future Appointment(s):05/10/2020 9:40 am - Peggy Hurst RN [facility] at [facility]/04/2019 - [facility] Encounter for general adult medical examination without abnormal findingsComments:Reviewed the use of sun screen and careful routine skin review for changes related to sun exposure. Reviewed immunization record, and [facility] reccommendations Depression scale reviewed with the patienttest indicated no depression at this time. Mini mental exam completed and scored normal functioning. Risk assessment done and ambulation was observed and is not at risk to fall. Reviewed medication list and provided a new updated copy to the patient. Reviewed specialists patient is seeing and medical issues that are on going. Face to face discussion with the patient today to explain the healthcare proxy materials provided by [facility]. This included the living will information and copy of allinformation was offered to the patient. I reviewed several possible senerios involving changes in health status and the implications of choosing a health care proxy. Time involoved was approx. 16-20 minutes. All questions were answered.Follow up:6 MO WENDY WFAKKJIP38.9 Obesity, agpdhfcmjzxY60.31 Encounter for screening for bvaelyttfdI60.9 Iron deficiency anemia, roqovaauicaC88.65 Type 2 diabetes mellitus with ffkjzqennwpjyF24.9 Vitamin D deficiency, dveezeenxmzA46.31 Encounter for screening mammogram for malignant neoplasm of breastNew Xrays: Mammogram Screening, Bilateral Incl CAD When Performe, Ordered: 11/04/19R31.9 Hematuria, unspecifiedComments:PROB RELATED TO HER RECENT KIDNEY STONE LAZER.Z13.820 Encounter for screening for osteoporosisNew Xrays:Bone Density Study (Dexa), Ordered: 11/04/19Z68.33 Body mass index (BMI) 33.0-33.9, adult Functional Status Description No Information Available Mental Status Description No Information Available Referrals Description No Information Available
--- OUTSIDE RECORDS SUMMARY | 2019-12-17 15:53 | XMS REPORT | Continuity of Care Document ---
:1945 External Reference #:[id number] Author Name Malinda Clemens MD (transmitted by agent of provider Lisa Escobar) Address [address] [place] [address] Care Team Providers Name Role Phone Herminio Montgomery MD - Internal Care Team Information Fight Manager Medicine Peggy Hurst VISUAL DISPLAY ASSOCIATE - Family Care Team Information Fight Manager [phone] Problems Active Problems Provider Date Coronary arteriosclerosis Ender Daniel M.D., [facility], Onset: 11/18/2013 [facility] Paroxysmal atrial fibrillation Ender Daniel M.D., [facility], Onset: 2015 [facility] Paroxysmal atrial fibrillation Ender Daniel M.D., [facility], Onset: 2015 [facility] Disturbance in sleep behavior [...] 08/17/2018 Mitral valve disorder Ender Daniel M.D., [facility], Onset: 08/17/2019 [facility] Social History Type Date Description Comments Sex Unknown Tobacco Use Start: Unknown not smoking ETOH Use Denies alcohol use Tobacco Use Start: Unknown Patient has never Pt denies ever smoked smoking cigarettes, e-cigarettes, cigar, pipe, or using chewing tobacco. Recreational Drug Use Denies Drug Use Smoking Status Reviewed: 10/20/19 Patient has never Pt denies ever smoked [...] Veltassa 1 packet by mouth 30units E87.5 [facility] 05/04/2019 8.4gm every week as needed MD Ca Packet Magnesium Sulfate 2 grams iv 1 dose as 2gm [facility] 12/14/2018 needed for MD Ca 2GM/50ML Solution hypomagnesemia symptoms valid from 10/20/18 to 03/05/19 Veltassa 1 packet po q daily 7units E87.5 [facility] 11/17/2018 8.4gm prn MD Ca Packet Amiloride HCL 1 tab by mouth every 90tabs E83.42 Malinda G Negoi, 10/20/2018 5mg daily MD Tablets Magnesium Sulfate 2 grams iv 1 dose as 2gm E83.42 [facility] 10/20/2018 needed for MD Ca 2GM/50ML Solution hypomagnesemia symptoms Valid from 10/20/18 to 03/05/19 Iron (Ferrous 1 tab by mouth twice 60tabs D50.9 [facility] 09/16/2018 Gluconate) a day with meals MD Ca 256(28Fe) mg Tablets Amlodipine 1 tab daily Peggy Hurst Besylate C., [employer]PLAY [employer]OCIATE 10mg Tablets Slow-Mag 2 tab by mouth three Unknown x daily 71.5-119mg Tablets Metoprolol 3 tablet po twice Peggy Hurst Succinate ER daily( Medication C., VISUAL DISPLAY ASSOCIATE 25mg change December 2015 s/p Tablets ER 24HR Tikosyn) Tikosyn 1 by mouth twice a 180caps Ender Irizarry 500mcg day Julia Daniel, Capsules ANUSHA ACKERMAN Metformin HCL On hold. 1 by mouth Unknown twice a day 1000mg Tablets Gemfibrozil 1 by mouth [...] M.D., 08/02/2012 Tetrofosmin, Per Unit Dose ANUSHA ACKREMAN Up To 40 Millicuries Injection Immunizations Description No Information Available Vital Signs Date Vital Result Comment 10/20/2019 9:41am Height 63.5 inches 5'3.50" Weight 188.00 lb Heart Rate 77 /min BP Systolic Sitting 141 mmHg left arm reg cuff BP Diastolic Sitting 77 mmHg left arm reg cuff O2 % BldC Oximetry 99 % room air BMI (Body Mass Index) 32.8 kg/m2 10/13/2019 10:14am Height 63.5 inches 5'3.50" Weight 187.00 lb Heart Rate 57 /min BP Systolic 136 mmHg BP Diastolic 78 mmHg O2 % BldC Oximetry 98 % BMI (Body Mass Index) 32.6 kg/m2 Results Test Acquired Date Facility Test Result H/L Range Note Laboratory test 10/12/2019 [facility] Magnesium 1.7 mg/dL Low 1.9-2.[address] [place] [address] [phone] Basic Metabolic 10/12/2019 [facility] Sodium 136 mmol/L Normal 135-[address] [place] [address] [phone] Potassium 5.5 mmol/L High 3.5-5.0 Chloride 108 mmol/L Normal 101-111 Co2 Carbon Dioxide 21 mmol/L Low 22-32 Anion Gap 7 mmol/L Normal 2-11 Glucose 153 mg/dL High 70-100 Blood Urea Nitrogen 22 mg/dL Normal 6-24 Creatinine 1.10 mg/dL High 0.51-0.95 BUN/Creatinine Ratio 20.0 Normal 8-20 Calcium 9.8 mg/dL Normal 8.6-10.3 Egfr Non- 48.8 >60 Egfr 59.1 >60 2 Urine Culture And 08/17/2019 [facility] Urine Culture SEE RESULT [address] [place] [address] [phone] Laboratory test 08/17/2019 [facility] Magnesium 1.8 mg/dL Low 1.9-2 4 finding [facility] [address] [place] [address] [phone] Urinalysis Profile 08/17/2019 [facility] [place] [address] [phone] Urine Appearance Turbid Urine Specific [place] 1.020 Normal 1.010-1.030 Urine pH 5.0 Normal 5-9 Urine Urobilinogen Negative Negative Urine Ketones Negative Negative Urine Protein Negative Negative Urine Leukocytes Trace Abnormal Negative Urine Blood 1+ Abnormal Negative Urine Nitrite Negative Negative Urine Bilirubin Negative Negative Urine Glucose Negative Negative Urine White Blood Cell Trace(0-5/hpf) Absent Urine Red Blood Cell Trace(0-2/hpf) Absent Urine Bacteria Absent Absent Urine Squamous Epithelial Cell Present Abnormal Absent Urine Calcium Oxalate Cryst Present Abnormal Absent Basic Metabolic 08/17/2019 [facility] Sodium 139 mmol/L Normal 135-145 [address] [place] [address] [phone] Potassium 5.0 mmol/L Normal 3.5-5.0 Chloride 110 mmol/L Normal 101-111 Co2 Carbon Dioxide 18 mmol/L Low 22-32 Anion Gap 11 mmol/L Normal 2-11 Calcium 10.3 mg/dL Normal 8.6-10.3 Glucose 100 mg/dL Normal 70-100 Blood Urea Nitrogen 30 mg/dL High 6-24 Creatinine 1.01 mg/dL High 0.51-0.95 BUN/Creatinine Ratio 29.7 High 8-20 Egfr Non- 54.0 >60 Egfr 65.4 >60 5 Laboratory test 08/17/2019 [facility] Ferritin 251.8 ng/mL Normal 11-307 finding [address] [place] [address] [phone] Iron & Iron 08/17/2019 [facility] Iron 96 g/dL Normal 50- 212 [address] [place] [address] [phone] Unsaturated Iron Binding < 404 g/dL Total Iron Binding Capacity 419 g/dL Normal 250-450 % Iron Saturation 23 % Normal 15-55 Laboratory test 08/17/2019 [facility] Transferrin 299 mg/dL Normal 203-362 finding [address] [place] [address] [phone] Neph Routine 08/17/2019 [facility] Total Protein 19 mg/dL [address] [facility] [place] [place] [address] [phone] Creatinine Random Urine 147.11 mg/dL CBC Auto 08/17/2019 [facility] White Blood 4.1 10^3/uL Normal 3.5-10.8 Diff [address] [facility] [place] [address] [phone] Red Blood Count 4.37 10^6/uL Normal 3.70-4.87 Hemoglobin 12.8 g/dL Normal 12.0-16.0 Hematocrit 39 % Normal 35-47 Mean Corpuscular Volume 89 fL Normal 80-97 Mean Corpuscular Hemoglobin 29 pg Normal 27-31 Mean Corpuscular HGB Conc 33 g/dL Normal 31-36 Red Cell Distribution Width 16 % High 10-15 Platelet Count 174 10^3/uL Normal 150-450 Mean Platelet Volume 11.1 fL High 7.4-10.4 Abs Neutrophils 1.9 10^3/uL Normal 1.5-7.7 Abs Lymphocytes 1.2 10^3/uL Normal 1.0-4.8 Abs Monocytes 0.6 10^3/uL Normal 0-0.8 Abs Eosinophils 0.3 10^3/uL Normal 0-0.6 Abs Basophils 0.0 10^3/uL Normal 0-0.2 Abs Nucleated RBC 0.0 10^3/uL Granulocyte % 46.6 % Lymphocyte % 29.3 % Monocyte % 15.8 % Eosinophil % 7.7 % Basophil % 0.6 % Nucleated Red Blood Cells % 0.1 Neph Routine 07/13/2019 [facility] Total Protein Random 25 mg/ dL [address] [place] [address] [phone] Creatinine Random Urine 156.22 mg/dL CBC Auto 07/13/2019 [facility] White Blood 5.8 10^3/uL Normal 3.5-10.[address] [place] [address] [phone] Red Blood Count 4.48 10^6/uL Normal 3.70-4.87 [...] Blood Cells % 0.0 Basic Metabolic 07/13/2019 [facility] Sodium 139 mmol/L Normal 135-[address] [place] [address] [phone] Potassium 5.1 mmol/L High 3.5-5.0 Chloride 110 mmol/L Normal 101-111 Co2 Carbon Dioxide 21 mmol/L Low 22-32 Anion Gap 8 mmol/L Normal 2-11 Calcium 10.0 mg/dL Normal 8.6-10.3 Glucose 104 mg/dL High 70-100 Blood Urea Nitrogen 20 mg/dL Normal 6-24 Creatinine 0.93 mg/dL Normal 0.51-0.95 BUN/Creatinine Ratio 21.5 High 8-20 Egfr Non- 59.4 >60 Egfr 71.9 >60 6 Urinalysis Profile 07/13/2019 [facility] Urine Color Yellow [address] [place] [address] [phone] Urine Appearance Cloudy Urine Specific [place] 1.016 Normal 1.010-1.030 Urine pH 5.0 Normal [...] Casts Present Abnormal Absent Laboratory test 07/13/2019 [facility] Magnesium 1.7 mg/dL Low 1.9-2.[address] [place] [address] [phone] Laboratory test 06/03/2019 [facility] Magnesium 1.7 mg/dL Low 1.9-2.[address] [place] [address] [phone] Basic Metabolic 06/03/2019 [facility] Sodium 139 mmol/L Normal 135-[address] [place] [address] [phone] Chloride 111 mmol/L Normal 101-111 Co2 Carbon Dioxide 19 mmol/L Low 22-32 Calcium 9.6 mg/dL Normal 8.6-10.3 Potassium 5.6 mmol/L High 3.5-5.0 Anion Gap 9 mmol/L Normal 2-11 Glucose 89 mg/dL Normal 70-100 Blood Urea Nitrogen 21 mg/dL Normal 6-24 Creatinine 0.93 mg/dL Normal 0.51-0.95 BUN/Creatinine Ratio 22.6 High 8-20 Egfr Non- 59.4 >60 Egfr 71.9 >60 7 CBC Auto 06/03/2019 [facility] White Blood 7.3 10^3/uL Normal 3.5-10.[address] [place] [address] [phone] Red Blood Count 4.32 10^6/uL Normal 3.70-4.87 [...] Blood Cells % 0.1 Urinalysis Profile 06/03/2019 [facility] Urine Color Melania [address] [place] [address] [phone] Urine Appearance Turbid Urine Specific [place] 1.020 Normal 1.010-1.030 Urine pH 5.0 Normal 5-9 Urine Urobilinogen Negative Negative Urine Ketones Negative Negative Urine Protein Negative Negative Urine Leukocytes 3+ Abnormal Negative Urine Blood 2+ Abnormal Negative * * Abnormal Negative 8 Urine Nitrite Negative Negative Urine Bilirubin Negative Negative Urine Glucose Negative Negative Urine White Blood Cell 2+(11-20/hpf) Abnormal Absent Urine Red Blood Cell 1+(3-5/hpf) Abnormal Absent Urine Bacteria Absent Absent Urine Squamous Epithelial Cell Present Abnormal Absent Urine Calcium Oxalate Cryst Present Abnormal Absent Laboratory test 06/03/2019 [facility] Total Protein 22 mg/dL finding [address] [place] [address] [phone] Creatinine Random Urine 204.65 mg/dL Urine Microalbumin 06/03/2019 [facility] Ur Microalbumin 39.4 mg /L Random [address] (mg/L) [place] [address] [phone] Urine Creatinine 204.65 mg/dL Urine Microalbumin/Creatinine 19.2 Normal <31 Urine Culture And 06/03/2019 [facility] Urine Culture SEE RESULT [address] [place] [address] [phone] 1 [MG] affected by ICTERUS 2 Because ethnic data is not always [...] 5 Kidney failure <15 (or dialysis) 3 SEE RESULT BELOW Name: NAJMA HUFF : [address]: Tameka Penaloza MD Acct: [id number] Unit: [id number] AGE: 73 [facility]17[facility] SEX: F Status: REG REF SPEC: [id number] IRENE: 08/17/[address]: Tameka Penaloza MD REQ: [id number] RECD: 08/17/19 STATUS:COMP _ SOURCE: URINE SPDESC: ORDERED: Urine Culture Procedure Result Reported Site Urine Culture Final 08/18/19- 1228 ML No Growth (<1,000 CFU/mL) * ML - Main Lab . END OF REPORT DEPARTMENT OF PATHOLOGY, [address] [place] [address] Suman Pleitez M.D. Director [facility] # [id number] 4 [MG] affected by ICTERUS 5 Because ethnic data is not always [...] 5 Kidney failure <15 (or dialysis) 6 Because ethnic data is not always [...] 5 Kidney failure <15 (or dialysis) 7 Because ethnic data is not always [...] 5 Kidney failure <15 (or dialysis) 8 *Ascorbic acid is present which may interfere with detection of blood. 9 SEE RESULT BELOW Name: NAJMA HUFF : [address]: Tameka Penaloza MD Acct: [id number] Unit: [id number] AGE: 73 [facility] Re06/03/19 SEX: F Status: REG REF SPEC: [id number] IRENE: 06/03/[address]: Tameka Penaloza MD REQ: [id number] RECD: 06/03/19 STATUS: COMP _ SOURCE: URINE SPDESC: ORDERED: Urine Culture Procedure Result Reported Site Urine Culture Final 06/05/19- 0947 ML No growth of clinically significant organisms * ML - Main Lab . END OF REPORT DEPARTMENT OF PATHOLOGY, [address] [place] [address] Suman Pleitez M.D. 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) R53.83 Other fatigue Office Visit 09/17/2019 2:10p [facility] Velia Dohertyl, N13.0 Hydronephrosis with Assochenrique MD ureteropelvic Hospitalists junction obstruction N17.9 Acute kidney failure, unspecified E87.5 Hyperkalemia I48.91 Unspecified atrial fibrillation Office Visit 09/16/2019 2:10p [facility] Velia Dill, N13.2 Hydronephrosis with Asshenrique jon MD renal and ureteral Hospitalists calculous obstruction N17.9 Acute kidney failure, unspecified I48.91 Unspecified atrial fibrillation I50.20 Unspecified systolic (congestive) heart failure I11.0 Hypertensive heart disease with heart failure I25.10 Athscl heart disease of kashia coronary artery w/o ang pctrs Office Visit 09/15/2019 [facility] Jaqui N13.2 Hydronephrosis with 2:09p henrique Quinn PA renal and ureteral Hospitalists calculous obstruction N17.9 Acute kidney failure, unspecified E87.5 Hyperkalemia Office Visit 08/17/2019 9:00a [facility] Ender Juan C I34.0 Nonrheumatic mitral Of [facility] Falco Daniel., (valve) FACC, FASNC insufficiency I10 Essential (primary) hypertension R94.31 Abnormal electrocardiogram [ECG] [EKG] I25.10 Athscl heart disease of kashia coronary artery w/o ang pctrs I48.0 Paroxysmal atrial fibrillation Office Visit 07/14/2019 9:00a [facility] Nephrology Tameka E83.42 Hypomagnesemia MD Ca E87.5 Hyperkalemia D50.9 Iron deficiency anemia, unspecified R31.9 Hematuria, unspecified Z79.84 senior care (current) use of oral 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 E11.21 Type 2 diabetes mellitus with diabetic nephropathy Office Visit 05/06/2019 2:00p [facility] Bela G47.9 Sleep disorder, [facility] MD Jodee unspecified [facility] R53.83 Other fatigue Office Visit 05/04/2019 3:00p [facility] Nephrology Tameka E83.42 Hypomagnesemia MD Ca E11.21 Type 2 diabetes mellitus with diabetic nephropathy D64.9 Anemia, unspecified D50.9 Iron deficiency anemia, unspecified E87.5 Hyperkalemia Assessments Date Code Description Provider 10/20/2019 N18.9 Chronic kidney disease, unspecified Malinda Clemens MD 10/20/2019 E87.5 Hyperkalemia Malinda Clemens MD 10/20/2019 E83.42 Hypomagnesemia Malinda Clemens MD 10/13/2019 G47.33 Obstructive sleep apnea (adult) Nitza Russ NP (pediatric) 10/13/2019 R53.83 Other fatigue Nitza Russ NP 09/17/2019 N13.0 Hydronephrosis with ureteropelvic Velia Prater MD junction obstruction 09/17/2019 N17.9 Acute kidney failure, unspecified Velia Prater MD 09/17/2019 E87.5 Hyperkalemia Velia Prater MD 09/17/2019 I48.91 Unspecified atrial fibrillation Velia Prater MD 09/16/2019 N13.2 Hydronephrosis with renal and ureteral Velia Prater MD calculous obstruction 09/16/2019 N17.9 Acute kidney failure, unspecified Velia Prater MD 09/16/2019 I48.91 Unspecified atrial fibrillation Velia Prater MD 09/16/2019 I11.0 Hypertensive heart disease with heart Velia Prater MD failure 09/16/2019 I50.20 Unspecified systolic (congestive) Velia Prater MD heart failure 09/16/2019 I25.10 Atherosclerotic heart disease of Velia Prater MD kashia coronary artery without angina pectoris 09/15/2019 N13.2 Hydronephrosis with renal and ureteral DOMENICO Landon calculous obstruction 09/15/2019 N17.9 Acute kidney failure, unspecified DOMENICO Landon 09/15/2019 E87.5 Hyperkalemia DOMEINCO Landon 08/17/2019 I34.0 Nonrheumatic mitral (valve) Ender Daniel M.D., [facility], insufficiency [facility] 08/17/2019 I10 Essential (primary) hypertension Ender Daniel M.D., [facility] , [facility] 08/17/2019 R94.31 Abnormal electrocardiogram [ECG] [EKG] Ender Daniel M.D., [facility], [facility] 08/17/2019 I25.10 Atherosclerotic heart disease of Ender Daniel M.D., [facility], [place] coronary artery without angina FASAK pectoris 08/17/2019 I48.0 Paroxysmal atrial fibrillation Ender Daniel M.D., [facility] , [facility] 07/14/2019 E83.42 Hypomagnesemia Tameka Penaloza MD 07/14/2019 E87.5 Hyperkalemia Tameka Penaloza MD 07/14/2019 D50.9 Iron deficiency anemia, rikified Tameka Penaloza MD 07/14/2019 R31.9 Hematuria, unspecified Tameka Penaloza MD 07/14/2019 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 MD 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 07/14/2019 E11.21 Type 2 diabetes mellitus with diabetic Tameka Penaloza MD nephropathy 05/26/2019 G47.33 Obstructive sleep apnea (adult) Bela Ellsworth MD (pediatric) 05/11/2019 R06.83 Snoring Bela Ellsworth MD 05/06/2019 G47.9 Sleep disorder, unspecified Bela Ellsworth MD 05/06/2019 R53.83 Other fatigue Bela Ellsworth MD 05/04/2019 E83.42 Hypomagnesemia Tameka Penaloza MD 05/04/2019 E11.21 Type 2 diabetes mellitus with diabetic Tameka Penaloza MD nephropathy 05/04/2019 D64.9 Anemia, unspecified Tameka Penaloza MD 05/04/2019 D50.9 Iron deficiency anemia, unspecified Tameka Penaloza MD 05/04/2019 E87.5 Hyperkalemia Tameka Penaloza MD Plan of Treatment Future Appointment(s):12/28/2019 8:00 am - Malinda Clemens MD at [facility] [id number] /20/2020 9:30 am - Nitza Russ NP at [facility]10/20/2019 - Malinda Clemens MDN18.9 Chronic kidney disease, cigqcsczlqcH81.5 XmptrobxhctaG43.42 HypomagnesemiaFollow up:2 months Functional Status Description No Information Available Mental Status Description No Information Available Referrals Description No Information Available
[2019-12-17 17:01] LABS: Urine Appearance Cloudy; Urine Bacteria Absent (Absent); Urine Bilirubin Negative (Negative); Urine Blood 2+ (Negative); Urine Glucose 1+(50 mg/dL) (Negative); Urine Ketones Negative (Negative); Urine Nitrite Negative (Negative); Urine Protein 2+(100 mg/dL) (Negative); Urine Red Blood Cell 3+(>10/hpf) (Absent); Urine Specific Gravity 1.012 (1.010-1.030); Urine Urobilinogen Negative (Negative); Urine White Blood Cell Absent (Absent)
[2019-12-17 17:03] LABS: Urine Color Red
== END 2019-12-17 16:28 | disposition left against medical advice (07) ==
LOC: ED 15:34
DX: R39.198 Other difficulties with micturition (principal); Z53.21 Procedure and treatment not carried out due to patient leaving prior to being seen by health care provider
CPT/HCPCS: 81003; 81015; 99281

== ENCOUNTER 2019-12-18 15:52 | Emergency (ER) | payer MEDICARE ==
--- NOTE | 2019-12-18 17:18 | ED ---
GI/ HPI - HPI Summary HPI Summary: Patient had lithotripsy and right side stent placement 2 days ago for [address] Manuel. Patient complains of 2 episodes of urinary retention lasting hours, hematuria and persistent pain. Patient states from yesterday morning when she woke up until 4 PM last night she was unable to urinate. Patient to come to the ED, and then suddenly at 4 PM was able to urinate and then left without being seen. States she urinated normally through the evening. And again decreased urine flow starting at 11AM today. Currently able to urinate only in small dribbles despite copious fluid intake. Pain significantly increased during attempts to urinate. Denies fever, cough, sore throat, CP, SOB, N/V/D, abdominal pain, change in BM. Medical history is DM 2, CK D, CAD, HTN, A. fib. - History of Current Complaint Chief Complaint: EDUrogenitalProblems Time Seen by Provider: 12/18/19 17:00 Stated Complaint: UNABLE TO URINATE PER PT Hx Obtained From: Patient, Family/Apprentice Painter Brush Onset/Duration: Started Hours Ago Timing: Intermittent, Lasting Hours Severity: Severe Current Severity: Severe Pain Intensity: 10 Location of Pain: Flank Associated Signs and Symptoms: Positive: Hematuria, Dysuria, Flank Pain Aggravating Factor(s): Urination - Additional Pertinent History Primary Care Physician: [id number] - Allergy/Home Medications Allergies/Adverse Reactions: Allergies Allergy/AdvReac Type Severity Reaction Status Date / Time adhesive Allergy Intermediate Rash Verified 12/18/19 15:56 adhesive tape Allergy Intermediate Rash Verified 12/18/19 15:56 Home Medications: Home Medications ALPRAZolam TAB* [Xanax TAB*] 0.5 mg PO BEDTIME 12/06/15 [History Confirmed 12/15] Rosuvastatin Calcium [Crestor] 20 mg PO BEDTIME 12/06/15 [History Confirmed ] Gemfibrozil TAB* [Lopid TAB*] 600 mg PO BID tab 12/17/15 [Rx Confirmed ] Amlodipine Besylate [Norvasc 5 mg tab] 10 mg PO QAM 03/29/16 [History Confirmed 12/16/19] Dofetilide CAP* [Tikosyn CAP*] 500 mcg PO BID 03/29/16 [History Confirmed ] Insulin Detemir (NF) [Levemir 100 units/ml 10 ml VIAL (NF)] 28 - 32 unit SUBCUT QPM 02/10/17 [History Confirmed 12/16/19] Isosorbide Mononitrate (NF) 20 mg PO BID 02/10/17 [History Confirmed 12/16/19] Aspirin [Aspir-Low] 81 mg PO QAM 04/13/18 [History Confirmed 12/16/19] Cholecalciferol TAB* [Vitamin D TAB*] 1,000 unit PO QAM 04/13/18 [History Confirmed 12/16/19] Cyanocobalamin (Vitamin B-12) [Vitamin B-12] 1,000 mcg SL QAM 04/13/18 [History Confirmed 12/16/19] Rivaroxaban TAB(*) [Xarelto 20 mg] 20 mg PO QAM 05/14/18 [History Confirmed ] Magnesium Chloride EC TAB* [Slow Mag EC TAB*] 286 mg PO TID 10/11/18 [History Confirmed 12/16/19] aMILoride TAB* [Midamor TAB*] 5 mg PO QAM 10/26/18 [History Confirmed 12/16/19] Ferrous Gluconate TAB* [Fergon TAB*] 27 mg PO QAM 09/15/19 [History Confirmed ] Metoprolol Succinate XL TAB* [Toprol XL TAB*] 75 mg PO BID 09/15/19 [History Confirmed 12/16/19] Calcium Carbonate [Tums Chewy Delights] 1 tab PO ONCE PRN 12/14/19 [History Confirmed 12/14/19] Metformin HCl 1,000 mg PO BID 12/14/19 [History Confirmed 12/16/19] Nitroglycerin TAB 0.4 MG* 0.4 mg SL . NEEDED PRN 12/14/19 [History Confirmed 12/14/19] Patiromer POWDER* [Veltassa POWDER*] 8.4 gm PO WEEKLY 12/14/19 [History Confirmed 12/16/19] Cephalexin CAP* [Keflex CAP*] 500 mg PO QID 7 Days #28 cap 12/18/19 [Rx] PMH/Surg Hx/FS Hx/Imm Hx Endocrine/Hematology History: Reports: Hx Diabetes - LEVEMIR & METFORMIN, Hx Anemia - IRON TRANSFUSIONS 07/2019 Denies: Hx Bone Marrow Disease, Hx Sickle Cell Disease, Hx Unexplained Bleeding Cardiovascular History: Reports: Hx Angina, Hx Angioplasty, Hx Cardiomegaly, Hx Congestive Heart Failure, Hx Coronary Artery Disease - HYPER LIPIDEMIA, Hx Hypercholesterolemia, Hx Hypertension - ON MEDICATIONS, Hx Myocardial Infarction , Other Cardiovascular Problems/Disorders - PAROXYSMAL ATRIAL FIB, DISORDER OF MAGNESIUM METABOLISM Denies: Hx Auto Implanted Cardiovert Defib, Hx Cardiac Arrest, Hx Congenital Heart Disease, Hx Deep Vein Thrombosis, Hx Embolism, Hx Hypotension, Hx Pacemaker/ICD, Hx Peripheral Vascular Disease, Hx Rheumatic Fever, Hx Syncope, Hx Valvular Heart Disease Respiratory History: Reports: Hx Asthma - CURRENTLY ON NO MEDICATIONS, Hx Sleep Apnea - RECENT TESTING "MILD TO MODERATE WALTER" WORSE WHEN LYING ON BACK, Other Respiratory Problems/Disorders - Hx of pneumonia and pleurisy approx 30 years ago Denies: Hx Pulmonary Edema, Hx Pulmonary Embolism GI History: Reports: Hx Gastroesophageal Reflux Disease - TUMS, Hx Hiatal Hernia - DIET CONTROLLED, Other GI Disorders - Cholecystectomy/Appendectomy History: Reports: Hx Kidney Infection - September 2019, Hx Kidney Stones - CURRENTLY HAS STONE ON RIGHT, Other Problems/Disorders - Hysterectomy-1989- Uterine fibroids, Nephrolithiasis Denies: Hx Renal Disease Musculoskeletal History: Reports: Hx Arthritis - LEFT THUMB, KNEES Denies: Hx Bursitis, Hx Tendonitis, Other Musculoskeletal History Sensory History: Reports: Hx Cataracts - Bilateral extractions 11/23, Hx Contacts or Glasses - GLASSES Denies: Hx Glaucoma, Hx Hearing Aid, Hx Hearing Problem Opthamlomology History: Reports: Hx Cataracts - Bilateral extractions 11/23, Hx Contacts or Glasses - GLASSES Denies: Hx Glaucoma EENT History: Denies: Hx Deafness Neurological History: Denies: Other Neuro Impairments/Disorders Psychiatric History: Reports: Hx Anxiety - ON XANAX AT BEDTIME - Cancer History Hx Chemotherapy: No - Surgical History Surgery Procedure, Year, and Place: Hysterectomy, Cholecysytecomy, Tumor removed from between toes, Appendectomy,. 6 CORONARY STENTS Hx Anesthesia Reactions: Yes - NAUSEA AND VOMITING AFTER ANESTHESIA Infectious Disease History: No Infectious Disease History: Denies: Traveled Outside the [place] in Last 30 Days - Family History Known Family History: Positive: Cardiac Disease - Bypass, AAA, [place], CAD, Diabetes - GRANDMOTHER, Other - Dementia - Social History Alcohol Use: None Hx Substance Use: No Substance Use Type: Reports: None Hx Tobacco Use: No Smoking Status (MU): Never Smoked Tobacco Review of Systems Constitutional: Negative Eyes: Negative ENT: Negative Cardiovascular: Negative Respiratory: Negative Positive: Abdominal Pain Positive: dysuria, flank pain, hematuria, pain Musculoskeletal: Negative Skin: Negative Neurological/Mental Status: Negative Psychological: Normal All Other Systems Reviewed And Are Negative: Yes Physical Exam Triage Information Reviewed: Yes Vital Signs On Initial Exam: Initial Vitals Temp Pulse Resp BP Pulse Ox 98.2 F 73 16 173/86 97 12/18/19 15:53 12/18/19 15:53 12/18/19 15:53 12/18/19 15:53 12/18/19 15:53 Vital Signs Reviewed: Yes Appearance: Positive: Well-Appearing Skin: Positive: Warm Head/Face: Positive: Normal Head/Face Inspection Eyes: Positive: Normal Neck: Positive: Supple Respiratory/Lung Sounds: Positive: Clear to Auscultation Cardiovascular: Positive: Normal Abdomen Description: Positive: Nontender. Negative: CVA Tenderness (R), CVA Tenderness (L) Musculoskeletal: Positive: Normal Neurological: Positive: Normal Psychiatric: Positive: Normal AVPU Assessment: Alert - [place] Coma Scale Best Eye Response: 4 - Spontaneous Best Motor Response: 6 - Obeys Commands Best Verbal Response: 4 - Confused Coma Scale Total: 14 Procedures - Sedation Patient Received Moderate/Deep Sedation with Procedure: No Diagnostics - Vital Signs Vital Signs Temp Pulse Resp BP Pulse Ox 12/18/19 15:53 98.2 F 73 16 173/86 97 - Laboratory Result Diagrams: 12/18/19 17:21 12/18/19 17:21 Lab Statement: Any lab studies that have been ordered have been reviewed, and results considered in the medical decision making process. GIGU Course/Dx - Course Course Of Treatment: Patient had lithotripsy and right side stent placement 2 days ago for [address] Manuel. Patient complains of 2 episodes of urinary retention lasting hours, hematuria and persistent pain. Patient states from yesterday morning when she woke up until 4 PM last night she was unable to urinate. Patient to come to the ED, and then suddenly at 4 PM was able to urinate and then left without being seen. States she urinated normally through the evening. And again decreased urine flow starting at 11AM today. Currently able to urinate only in small dribbles despite copious fluid intake. Pain significantly increased during attempts to urinate. Denies fever, cough, sore throat, CP, SOB, N/V/D, abdominal pain, change in BM. Medical history is DM 2, CK D, CAD, HTN, A. fib. Vital signs within normal limits. Creatinine 1.61. BUN 28. Potassium 5.1. Labs otherwise within normal limits. Renal ultrasound positive for mild to moderate right hydronephrosis with a calculus measuring maximum of 1.1 cm in the interpolar region of the right kidney and there is a right ureter stent visible in the right renal pole. Mild left hydronephrosis but no visible calculi. Discussed patient with Dr Mroales recommended Rocephin 2 g I V here in the ED, patient had a Shields catheter, Rx for Keflex and discharged home with follow-up tomorrow in clinic with Dr. Manuel. Patient understands and approves plan. - Diagnoses Provider Diagnoses: Postprocedural urinary retention Discharge ED - Sign-Out/Discharge Documenting (check all that apply): Patient Departure - Discharge Plan Condition: Stable Disposition: HOME Prescriptions: Cephalexin CAP* [Keflex CAP*] 500 mg PO QID 7 Days #28 cap Patient Education Materials: Shields Catheter Placement and Care (ED), Acute Urinary Retention in Women (ED) Referrals: Peggy Hurst [Primary Care Provider] - Jose Juan Manuel MD [Medical Doctor] - Additional Instructions: Called clinic of Dr. Manuel tomorrow morning for further evaluation. - Billing Disposition and Condition Condition: STABLE Disposition: Home - Attestation Statements Provider Attestation: I was available for consultation for this patient. I did not evaluate the patient or participate in any medical decision making or disposition decisions unless I am specifically named in the chart as having consulted on the patient. If I have consulted on the patient, please see my own ED note on the patient encounter. Govind Harry MD
[2019-12-18] MEDS ORDERED: Morphine 4 MG/ML VIAL (1 ml) 4 MG/ML VIAL IV ONE ×2 (17:26→18:17)
[2019-12-18] MEDS ORDERED: Ondansetron INJ* 2 MG/ML VIAL IV ONE (17:26)
[2019-12-18] MEDS ORDERED: NS 0.9% 1000 ML** 1,000 ML IV ONE (17:26)
[2019-12-18 17:40] LABS: ABS Eosinophils 0.4 10^3/ul (0-0.6); ABS Lymphocytes 1.8 10^3/ul (1.0-4.8); ABS Monocytes 0.8 10^3/ul (0-0.8); Eosinophil % 5.4 %; Hematocrit 33 % (35-47); Hemoglobin 11.2 g/dL (12.0-16.0); Lymphocyte % 25.4 %; Mean Corpuscular HGB Conc 34 g/dL (31-36); Mean Corpuscular Hemoglobin 29 pg (27-31); Mean Corpuscular Volume 86 fL (80-97); Mean Platelet Volume 9.7 fL (7.4-10.4); Platelet Count 189 10^3/uL (150-450); Red Blood Count 3.88 10^6 /uL (3.70-4.87); Red Cell Distribution Width 16 % (10-15)
[2019-12-18 17:54] LABS: Albumin 4.3 g/dL (3.2-5.2); Albumin/Globulin Ratio 1.3 (1-3); BUN/Creatinine Ratio 17.4 (8-20); C Reactive Protein 6.72 mg/L (<8.01); Calcium 9.7 mg/dL (8.6-10.3); EGFR African American 38.1 (>60); EGFR Non-African American 31.5 (>60); Globulin 3.3 g/dL (2-4); Potassium 5.1 mmol/L (3.5-5.0); Total Bilirubin 0.3 mg/dL (0.2-1.0); Total Protein 7.6 g/dL (6.4-8.9)
[2019-12-18 18:23] LABS: Urine Appearance Cloudy; Urine Bilirubin Negative (Negative); Urine Blood 2+ (Negative); Urine Glucose 1+(50 mg/dL) (Negative); Urine Ketones Trace (Negative); Urine Nitrite Negative (Negative); Urine Protein 2+(100 mg/dL) (Negative); Urine Specific Gravity 1.006 (1.010-1.030); Urine Urobilinogen Negative (Negative)
[2019-12-18 18:24] LABS: Urine Bacteria Absent (Absent); Urine Red Blood Cell 3+(>10/hpf) (Absent); Urine Squamous Epithelial Cell Present (Absent); Urine White Blood Cell Trace(0-5/hpf) (Absent)
[2019-12-18 18:25] LABS: Urine Color Red
[2019-12-18] MEDS ORDERED: Dofetilide CAP* 500 MCG PO ONE (20:27)
[2019-12-18] MEDS ORDERED: cefTRIAXone(*) 2 GM in NS 0.9% 100 ML* 100 ML IVPB ONE (23:50)
[2019-12-19 00:40] VITALS: BP 146/78
[2019-12-19 00:54] LABS: Urine Appearance Cloudy; Urine Bacteria Absent (Absent); Urine Bilirubin Negative (Negative); Urine Blood 3+ (Negative); Urine Glucose Negative (Negative); Urine Ketones Negative (Negative); Urine Nitrite Negative (Negative); Urine Protein 2+(100 mg/dL) (Negative); Urine Red Blood Cell 3+(>10/hpf) (Absent); Urine Specific Gravity 1.005 (1.010-1.030); Urine Urobilinogen Negative (Negative); Urine White Blood Cell Trace(0-5/hpf) (Absent)
[2019-12-19 00:56] LABS: Urine Color Yellow
== END 2019-12-19 00:39 | disposition home or self-care (01) ==
LOC: ED 15:52
DX: R33.8 Other retention of urine (principal); N13.2 Hydronephrosis with renal and ureteral calculous obstruction; Z96.0 Presence of urogenital implants; E11.22 Type 2 diabetes mellitus with diabetic chronic kidney disease; I13.0 Hypertensive heart and chronic kidney disease with heart failure and stage 1 through stage 4 chronic kidney disease, or unspecified chronic kidney disease; N18.9 Chronic kidney disease, unspecified; D63.1 Anemia in chronic kidney disease; I50.9 Heart failure, unspecified; I25.10 Atherosclerotic heart disease of native coronary artery without angina pectoris; E78.00 Pure hypercholesterolemia, unspecified; I25.2 Old myocardial infarction; I48.0 Paroxysmal atrial fibrillation; J45.909 Unspecified asthma, uncomplicated; K21.9 Gastro-esophageal reflux disease without esophagitis; F41.9 Anxiety disorder, unspecified; Z90.710 Acquired absence of both cervix and uterus; Z90.49 Acquired absence of other specified parts of digestive tract; Z95.5 Presence of coronary angioplasty implant and graft; Z90.89 Acquired absence of other organs; Z79.4 Long term (current) use of insulin; Z79.01 Long term (current) use of anticoagulants; Z79.82 Long term (current) use of aspirin; Z79.899 Other long term (current) drug therapy
CPT/HCPCS: 36415; 74018; 76775; 80053; 81003; 81015; 83605; 85025; 86140; 87086; 93005; 96361; 96365; 96375; 99284; A9270-GY; J0696; J2270; J2405